=== PATIENT | male | born 1970 | race Caucasian/White ===

== ENCOUNTER → 2025-06-11 14:03 | Outpatient (REF) | payer OTHER, SELFPAY | LOC: HWRCS 14:03 | PROVIDERS: ATTENDING PHYSICIAN Internal Medicine Cardiovascular Disease; FAMILY PHYSICIAN Nurse Practitioner Family | DX: I48.3 Typical atrial flutter (principal); I25.118 Atherosclerotic heart disease of native coronary artery with other forms of angina pectoris | CPT/HCPCS: 93306 ==

== ENCOUNTER 2025-06-17 05:54 | Day surgery (SDC) | payer OTHER, SELFPAY ==
[2025-06-11 12:58] VITALS: BMI 44.9
[2025-06-11 13:43] LABS: Hematocrit 34.7 % (39.0-52.0); Hemoglobin 10.7 g/dL (13.0-18.0); Mean Corp Hgb Conc. 30.8 g/dL (33.0-37.0); Mean Corpuscular Volume 88.1 fL (80.0-94.0); Nucleated Red Blood Cells % 0.4 % (-); Platelet Count 413 10^3/uL (130-400); Red Cell Dist. Width 14.1 % (11.5-14.5)
[2025-06-11 14:02] LABS: ALT (SGPT) 39 U/L (0-50); AST (SGOT) 37 U/L (17-59); Albumin 4.4 g/dl (3.5-5.0); Alkaline Phosphatase 112 U/L (38-126); Blood Urea Nitrogen 25 mg/dl (9-20); Calcium 9.3 mg/dl (8.4-10.2); Carbon Dioxide 34 mmol/L (22-30); Chloride 94 mmol/L (98-107); Estimated Creatinine Clearance 123 ml/min; Glucose 190 mg/dl (70-99); Potassium 5.1 mmol/L (3.5-5.1); Sodium 136 mmol/L (135-145); Total Protein 8.7 g/dl (6.3-8.2); eGFR > 60.00
[2025-06-17] VITALS (17 sets, daily range): BP systolic 97–147; BP diastolic 40–110; PULSE 2; BMI 44.8
[2025-06-17 06:52] LABS: Glucose - Point of Care 225 mg/dl (70-99)
[2025-06-17 08:57] LABS: ACT-LR - POC 176 Seconds (116-155)
[2025-06-17 09:25] LABS: ACT-LR - POC 136 Seconds (116-155)
--- NOTE | 2025-06-17 09:49 | ITS.CL.ABL ---
[employer] - Ablation
Ablation
Procedure Report:
Atrial Flutter ablation:
Mr. Blount is a very pleasant 55 yr old gentleman with CAD, s/p CABG, recent [place] with PCI to vein graft, ischemic cardiomyopathy, hyperlipidemia, morbid obesity, DM, HTN, ARUN (untreated), chronic respiratory failure with oxygen with multiple
recurrence of atrial flutter presented for EP study and ablation.
Date of the Procedure:
06/17/2025
Indications:
Atrial flutter with RVR.
Pre-Operative Diagnosis:
Typical Atrial Flutter
Post-Operative Diagnosis:
Supra-ventricular tachycardia with Typical Atrial Flutter
Procedure Performed:
EP study
Atrial flutter ablation with cavo-tricuspid isthmus line block formation
Performing Physician:
Demarcus Delarosa MD
Assistants:
EP staff
Anesthesia:
See anesthesia records
Detailed Description of the Procedure:
Written informed consent was obtained from the patient after a full explanation of the risks and benefits of the procedure including the risks of sedation and anesthesia.
The patient was brought to the electrophysiology laboratory in stable condition in fasting state. Continuous electrocardiographic and hemodynamic monitoring was initiated.
The initial rhythm was sinus.
The procedure site was meticulously prepared with surgical scrub and allowed to dry with no pooling. Sterile draping was applied to cover the procedure site. The image intensifier was draped with sterile bag and positioned over the patient.
After infusion of local anesthetic, vascular access was obtained under ultrasound guidance and sheaths were placed over guide wire as detailed below.
Sheath and Catheter Placement:
The following catheters / sheaths were placed
Sheaths:
��������� 8Fr in right femoral vein � upgraded to Agilis sheath
��������� 7Fr in the right femoral vein
Catheters:
��������� [employer] L[employer] Thermocool STSF bidirectional� - at locations of HRA, RV, CS and His.
��������� Decapolar catheter - at locations of CS
A 7000 units of heparin was given after the access was complete.
EP study:
A full EP study was done.
����������� OH 294
����������� QRS 90 msec
����������� QT/QTc: 350/411
����������� AA 716
����������� AH 243
����������� HV 51
Sinus Node Function:
Burst pacing was performed from the right atrium at varying cycle lengths to measure the sinus node recovery time (SNRT). The sinus node functions are within acceptable normal range.
Atrioventricular Shannon Function:
Atrial stimulation with incremental pacing intervals was performed from the coronary sinus and right ventricular apex (RVa) and antegrade and retrograde atrioventricular (AV) block cycle lengths were determined. The antegrade AV Wenckebach was noted
at 340 msec.
Programmed atrial stimulation was performed with drive train of 600 msec followed by a single atrial extra-stimulus and the AV shannon and the atrial ERPs were determined. The AV shannon ERP was <600/230 msec and the atrial ERP was 600/230msec.
There was normal decremental conduction noted through the AV node. The programmed stimuli showed no clear jump. There was no echo beat or AVNRT induced.
Ventricular stimulation showed concentric, midline and decremental retrograde conduction through the AV node and retrograde AV shannon ERP was below 600/230 msec and the Ventricular ERP was 600/230 msec.
The AV shannon functions are deemed within normal range with multiple slow pathways noted.
Ventricular Function:
Single ventricular extrastimuli were delivered following drive train of 600 msec, the ventricular ERP was 600/230 msec. The ventricular electrical functions are within acceptable range.
Arrhythmia Induction:
Programmed stimulation including single, and double extrastimuli were delivered from the HRA and the various locations of the CS as well as from the RVa. The burst pacing from the CS locations also attempted.
No arrhythmia was induced with general anesthesia and mechanical ventilation.
With hx of typical atrial flutter, the decision was made to proceed with CTI line of block creation.
Electroanatomic mapping (EAM):
The right atrium was mapped using Carto mapping software using [employer] STSF bidirectional catheter. The anatomy was established and the sinus rhythm conduction was recorded. The bipolar voltage of the entire chamber created that showed no
significant scar in the chamber.
Ablation # 1: Typical Atrial Flutter Ablation:
Radiofrequency ablation was performed using a 3.5mm, open irrigation, force-sensing bidirectional ablation catheter ([employer] STSF) in the cavotricuspid isthmus from the tricuspid annulus to the IVC ridge.
The flutter slowed and terminated into sinus rhythm once the CTI block was achieved.
Post ablation mapping was done:
Following observations were noted.
����������� -Bidirectional block was confirmed across the CTI line with differential pacing.
����������� -Double potentials were spaced greater than 95 msec apart.
����������� -The conduction time across the CTI line from proximal CS pacing was 168 msec.
����������� -EAM of the right atrium was obtained with coronary sinus pacing and showed a line of block at the CTI.
����������� -The time interval just lateral to the ablation lesions was 168 msec and the lateral wall was 118 msec
����������� - All these maneuvers confirmed the block at the CTI line.
- Post ablation HV interval was unchanged at 45 msec
The patient was observed in the EP lab for 15 minutes and the repeat study showed stable block at the CTI location and CTI conduction time was 168 msec.
Procedure End
Following the completion of the EP study, catheters were removed. The sheaths were removed and hemostasis achieved with VASCADE and manual compression.
Anesthesia reversed the sedation and extubated the patient successfully.
Estimated Blood loss:
<5 cc
Specimens Removed:
None.
Implants / Devices:
None
Urine output:
None
Packs / Drains/ Tubes:
None
Instrument / Sponge Count Correct:
Yes
Complications of the Procedure:
None
Condition of Patient at Time of Transfer:
Hemodynamically stable with no neurological or vascular compromise.
Summary:
Successful SVT ablation with typical atrial flutter ablation with cavo-tricuspid isthmus line of block formation.
.
[2025-06-17 10:13] LABS: Glucose - Point of Care 226 mg/dl (70-99)
[2025-06-17] MEDS: NOVOLOG vial 2 UNITS SC (10:54)
[2025-06-17 12:12] LABS: Glucose - Point of Care 219 mg/dl (70-99)
--- NOTE | 2025-06-17 14:20 | CM ---
Chart reviewed. Patient is independent of ADLS, lives with his in a 2 [address], 1st floor set up, 6 REN[address], 0 DME. Plan is for the patient to return home. CM to follow
[2025-06-17] MEDS: NOVOLOG FLEXPEN 5 UNITS SC ×2 (14:22→18:21)
[2025-06-17] MEDS: NOVOLOG FLEXPEN-MODERATE RESISTANCE 3 UNITS SC (14:23)
[2025-06-17] MEDS: BUMEX 2 MG PO (15:57)
[2025-06-17] MEDS: NEURONTIN 600 MG PO ×2 (15:57→22:11)
[2025-06-17 17:13] LABS: Glucose - Point of Care 300 mg/dl (70-99)
[2025-06-17] MEDS: NOVOLOG FLEXPEN-MODERATE RESISTANCE 7 UNITS SC (18:22)
--- NOTE | 2025-06-17 19:30 | PTCARENOTE ---
Pt received from PACU recovery area post ablation. Pt able to sit up on arrival to IVU, oxygen sats eventually weaned to 94% on 3L. Right femoral vein site with dry and intact dressing, no sign of bleeding or hematoma. Telemetry shows sinus rhythm.
[2025-06-17] MEDS: DEPAKENE 250 MG PO (20:26)
[2025-06-17] MEDS: ELIQUIS 5 MG PO (20:26)
[2025-06-17] MEDS: COREG 25 MG PO (20:26)
[2025-06-17] MEDS: PROTONIX 40 MG PO (20:26)
[2025-06-17] MEDS: XANAX 2 MG PO (20:26)
[2025-06-17 21:49] LABS: Glucose - Point of Care 298 mg/dl (70-99)
[2025-06-17] MEDS: LANTUS 0.62 UNITS SC (22:10)
[2025-06-17] MEDS: MINIPRESS 1 MG PO (22:10)
[2025-06-17] MEDS: ELAVIL 50 MG PO (22:11)
[2025-06-17] MEDS: ZETIA 10 MG PO (22:11)
[2025-06-17] MEDS: CRESTOR 40 MG PO (22:11)
[2025-06-18 03:52] VITALS: BP 97/53
[2025-06-18 04:17] LABS: Hematocrit 30.5 % (39.0-52.0); Hemoglobin 9.1 g/dL (13.0-18.0); Mean Corp Hgb Conc. 29.8 g/dL (33.0-37.0); Mean Corpuscular Volume 84.7 fL (80.0-94.0); Platelet Count 272 10^3/uL (130-400); Red Cell Dist. Width 14.6 % (11.5-14.5)
[2025-06-18 04:31] VITALS: BMI 44.8
[2025-06-18 04:55] LABS: Blood Urea Nitrogen 25 mg/dl (9-20); Calcium 8.6 mg/dl (8.4-10.2); Carbon Dioxide 29 mmol/L (22-30); Chloride 97 mmol/L (98-107); Estimated Creatinine Clearance > 125 ml/min; Glucose 255 mg/dl (70-99); Magnesium 1.9 mg/dl (1.6-2.3); Potassium 4.7 mmol/L (3.5-5.1); Sodium 136 mmol/L (135-145); eGFR > 60.00
[2025-06-18 05:18] VITALS: PULSE 2; PULSE 86
--- NOTE | 2025-06-18 06:14 | PTCARENOTE ---
Pt NSR on monitor, VSS. Pt denies pain. Rt groin dsg CDI. Pt tolerated BiPAP overnight. Ambulates with x 1 assist. Call weathers within reach
[2025-06-18 06:53] LABS: Glucose - Point of Care 185 mg/dl (70-99)
[2025-06-18 07:06] VITALS: BP 106/65
[2025-06-18 07:58] LABS: Glucose - Point of Care 256 mg/dl (70-99)
[2025-06-18 08:18] LABS: Glycohemoglobin (HgbA1c) 7.7 % (4.0-5.6)
[2025-06-18 08:41] VITALS: BP 124/64
[2025-06-18] MEDS: NOVOLOG FLEXPEN 5 UNITS SC ×2 (08:42→12:29)
[2025-06-18] MEDS: NOVOLOG FLEXPEN-MODERATE RESISTANCE 5 UNITS SC ×2 (08:42→12:30)
[2025-06-18] MEDS: LANTUS 0.62 UNITS SC (08:43)
[2025-06-18] MEDS: BUMEX 2 MG PO (08:45)
[2025-06-18] MEDS: NEURONTIN 600 MG PO (08:45)
[2025-06-18] MEDS: TRICOR 145 MG PO (08:46)
[2025-06-18] MEDS: FARXIGA 10 MG PO (08:46)
[2025-06-18] MEDS: PLAVIX 75 MG PO (08:46)
[2025-06-18] MEDS: PROTONIX 40 MG PO (08:46)
[2025-06-18] MEDS: ELIQUIS 5 MG PO (08:46)
[2025-06-18] MEDS: PROZAC 60 MG PO (08:47)
[2025-06-18] MEDS: XANAX PO (08:49)
[2025-06-18] MEDS: NORVASC 2.5 MG PO (08:50)
[2025-06-18] MEDS: COREG 25 MG PO (08:50)
[2025-06-18] MEDS: DEPAKENE 250 MG PO (08:52)
--- NOTE | 2025-06-18 08:57 | W.PN.CARDCBS ---
Addendum entered and electronically signed by JEAN CLAUDE Vail 06/18/25 12:05:
Improved Hgb with repeat labs.
Pt expressed desire to go to gym/exercise to help lose weight. He has difficulty walking even short distances. He had not done any cardiac rehab or PT after stenting in February at OSH in [place]. He and agreeable to starting with cardiac
rehab here.
Consulted Cardiac Rehab with first appt scheduled.
Stable for discharge home.
Addendum entered and electronically signed by Bob Marshall MD 06/18/25 10:20:
Patient seen and examined in collaboration with KEY MAKER; agree with below.
- Stable status-post ablation yesterday.
- Recheck hemoglobin today prior to discharge to make sure it is stable.
- Outpatient follow-up with Cardiology.
Original Note:
Today's Communication / Plan
-
Repeat CBC midday- if stable, ok for d/c
continue eliquis/plavix
pulm f/u for ARUN workup
cards f/u in 2 weeks as scheduled
Impression / Plan
-
PCP: Marija Neville NP
CDY: Giovanni Powers MD
55 y/o, PMH sig for CAD, s/p CABG (2017), recent [place] with PCI to vein graft-RCA (02/2025)- both in [place], [place]. Now with multiple recurrence of symptomatic atrial flutter presented for EP study and ablation.
IMPRESSION/PLAN:
AFlutter
s/p EP study with right sided CTI RFA
tele- NST w/PACs, no arrhythmia
[id number]=9, resume eliquis this morning
groin site stable
procedure complicated with desaturation and hypoxia requiring high flow O2 post procedure and BiPAP support overnight
now >92% on RA, no dyspnea, sob
likely has ARUN and will to reschedule outpt sleep study- to follow with Pulm in 1-2 weeks
anemia noted pre procedure with mild Hgb drop today- will repeat CBC (he has been on plavix + eliquis since stenting in February)
followup in 2 weeks at [facility] as scheduled
home today if anemia stable
CAD, prior CABG x3 (2018)
recent VG-RCA PCI (02/2025)
continue uninterrupted clopidogrel
stable
ICM/Chronic systolic HFmrEF, 45-50%
continue GDMT with bumex, carvedilol, jardiance, lisinopril
recent echo 06/11/25 results noted- no prior studies to compare
HLD- check CVE this morning
continue statin
Morbid Obesity- weight loss/lifestyle changes encouraged
started mounjaro per pcp
Progress Note - Medical Secretary
Subjective
Date of Service: June 18, 2025
Denies cp/palps/dyspnea
oob ambulating
groin site without pain
Objective
Labs:
06/18/25 04:08
Labs
Hgb 9.1 g/dL (13.0-18.0) L 06/18/25 04:08
Hct 30.5 % (39.0-52.0) L 06/18/25 04:08
Plt Count 272 10^3/uL (130-400) D 06/18/25 04:08
Sodium 136 mmol/L (135-145) 06/18/25 04:08
Potassium 4.7 mmol/L (3.5-5.1) 06/18/25 04:08
BUN 25 mg/dl (9-20) H 06/18/25 04:08
Creatinine 0.9 mg/dL (0.7-1.3) 06/18/25 04:08
Glucose 255 mg/dl (70-99) H 06/18/25 04:08
Vital Signs and I&O:
Vital Signs
Temp Pulse Resp BP Pulse Ox
98.6 F 86 15 106/65 98
06/18/25 07:00 06/18/25 07:06 06/18/25 07:00 06/18/25 07:06 06/18/25 07:00
Vital Signs
Temp Pulse Resp BP Pulse Ox
98.6 F 86 15 106/65 98
06/18/25 07:00 06/18/25 07:06 06/18/25 07:00 06/18/25 07:06 06/18/25 07:00
Intake & Output
06/16/25 06/17/25 06/18/25 06/19/25
06:59 06:59 06:59 06:59
Intake Total 550 / 550
Balance 550 / 550
Physical Exam
Physical Exam
AAOx3, MAEE 5/5
RRR S1 S2 no murmurs
CTA bilat, non labored
soft abd, + bs
right groin site without ht/bleeding, non tender
bilat extremities w/palpable distal pulses, no edema
--- NOTE | 2025-06-18 10:03 | W.DS.TRANS ---
Addendum entered and electronically signed by Bob Marshall MD 06/18/25 10:20:
Agree with below.
Original Note:
DC Summary - Outside Salesman
-
Discharge Instructions:
Discharge Diagnosis/Procedures Atrial flutter post ablation
Diet Low Cholesterol,Diabetic, Carb Controlled,2 Gram
Sodium
Driving Restrictions No driving for 24 hours
Instructions:
Stand-Alone Forms: DC Instructions- Cath/EP Lab
Changes to Home Medications: No
Discharge Medications:
DC Medications w/original date entered in [employer]
alprazolam 2 mg tablet 2 mg PO BID 06/17/25
amitriptyline 25 mg tablet 50 mg PO HS 06/17/25
amlodipine 2.5 mg tablet 2.5 mg PO DAILY 06/17/25
apixaban 5 mg tablet (Eliquis) 5 mg PO BID 06/17/25
bumetanide 2 mg tablet 2 mg PO BID 06/17/25
carvedilol 25 mg tablet 25 mg PO BID 06/17/25
clopidogrel 75 mg tablet 75 mg PO DAILY 06/17/25
empagliflozin 10 mg tablet (Jardiance) 10 mg PO DAILY 06/17/25
ezetimibe 10 mg tablet 10 mg PO HS 06/17/25
fenofibrate nanocrystallized 145 mg tablet 145 mg PO DAILY 06/17/25
fluoxetine 60 mg tablet 30 mg PO DAILY 06/17/25
gabapentin 600 mg tablet 600 mg PO TID 06/17/25
insulin aspart U-100 100 unit/mL (3 mL) subcutaneous pen (Novolog FlexPen U-100 Insulin aspart) 5 unit SC TIDWMEAL 06/17/25
insulin glargine U-300 conc 300 unit/mL (1.5 mL) subcutaneous pen (Toujeo SoloStar U-300 Insulin) 78 unit SC BID 06/17/25
lisinopril 20 mg tablet 20 mg PO DAILY 06/17/25
omeprazole 20 mg capsule,delayed release 20 mg PO BID 06/17/25
prazosin 1 mg capsule 1 mg PO HS 06/17/25
rosuvastatin 40 mg tablet 40 mg PO HS 06/17/25
tirzepatide 2.5 mg/0.5 mL subcutaneous pen injector (Halima) 2.5 mg SC QWEEK 06/17/25
valproic acid 250 mg capsule 250 mg PO BID 06/17/25
Home Medication Changes
Pending Results: No
[2025-06-18 10:36] LABS: HDL Cholesterol 21 mg/dl
[2025-06-18 11:14] LABS: Hematocrit 32.4 % (39.0-52.0); Hemoglobin 9.7 g/dL (13.0-18.0); Mean Corp Hgb Conc. 29.9 g/dL (33.0-37.0); Mean Corpuscular Volume 85.7 fL (80.0-94.0); Platelet Count 293 10^3/uL (130-400); Red Cell Dist. Width 14.8 % (11.5-14.5)
[2025-06-18 11:24] LABS: Glucose - Point of Care 262 mg/dl (70-99)
[2025-06-18 11:25] VITALS: BP 130/71
--- NOTE | 2025-06-18 13:23 | PTCARENOTE ---
Pt denies any discomfort. Pt seen by and Doretha Bishop, JARVIS. Telemetry and IV device removed. Discharge instructions reviewed with pt and his regarding medications, activity and driving restrictions, wound care, reporting cares and
concerns and follow up appt's. Excellent understanding verbalized. Pt escorted out via wheelchair and discharged to home.
[2025-06-18 16:05] LABS: LDL Cholesterol, Direct 66 mg/dl
== END 2025-06-18 13:27 | disposition home or self-care (01) ==
LOC: CATH 05:54
PROVIDERS: Nurse Practitioner; Nurse Practitioner Adult Health; ATTENDING PHYSICIAN Internal Medicine Cardiovascular Disease; FAMILY PHYSICIAN Nurse Practitioner Family; OTHER PHYSICIAN Internal Medicine Cardiovascular Disease
DX: I48.3 Typical atrial flutter (principal); J96.10 Chronic respiratory failure, unspecified whether with hypoxia or hypercapnia; I25.10 Atherosclerotic heart disease of native coronary artery without angina pectoris; Z95.1 Presence of aortocoronary bypass graft; I25.5 Ischemic cardiomyopathy; E78.5 Hyperlipidemia, unspecified; E66.01 Morbid (severe) obesity due to excess calories; E11.9 Type 2 diabetes mellitus without complications; Z79.4 Long term (current) use of insulin; I11.0 Hypertensive heart disease with heart failure; G47.30 Sleep apnea, unspecified; I47.20 Ventricular tachycardia, unspecified; I47.10 Supraventricular tachycardia, unspecified; D64.9 Anemia, unspecified; I50.22 Chronic systolic (congestive) heart failure; Z79.02 Long term (current) use of antithrombotics/antiplatelets; R09.02 Hypoxemia; Z99.81 Dependence on supplemental oxygen; Z95.5 Presence of coronary angioplasty implant and graft; Z88.5 Allergy status to narcotic agent; Z79.899 Other long term (current) drug therapy; Z79.85 Long-term (current) use of injectable non-insulin antidiabetic drugs; Z79.01 Long term (current) use of anticoagulants
CPT/HCPCS: C1730; C1894; C1732; C1766; 36415; 80048; 80053; 80061; 82962; 83036; 83721; 83735; 85025; 85027; 85347; 86850; 86900; 86901; 93005; 93653; 94660; C1760

== ENCOUNTER 2025-07-18 06:54 | Inpatient (IN) | payer OTHER, SELFPAY ==
[2025-07-18] VITALS (36 sets, daily range): BP systolic 84–155; BP diastolic 40–104; BMI 45.5; BMI 45.2
[2025-07-18 01:49] LABS: Hematocrit 35.0 % (39.0-52.0); Hemoglobin 10.1 g/dL (13.0-18.0); Mean Corp Hgb Conc. 28.9 g/dL (33.0-37.0); Mean Corpuscular Volume 82.4 fL (80.0-94.0); Nucleated Red Blood Cells % 0.4 % (-); Platelet Count 312 10^3/uL (130-400); Red Cell Dist. Width 17.1 % (11.5-14.5)
[2025-07-18 01:59] LABS: ALT (SGPT) 43 U/L (0-50); AST (SGOT) 38 U/L (17-59); Albumin 4.0 g/dl (3.5-5.0); Alkaline Phosphatase 119 U/L (38-126); Blood Urea Nitrogen 28 mg/dl (9-20); Calcium 9.0 mg/dl (8.4-10.2); Carbon Dioxide 34 mmol/L (22-30); Chloride 97 mmol/L (98-107); Glucose 217 mg/dl (70-99); Potassium 4.8 mmol/L (3.5-5.1); Sodium 137 mmol/L (135-145); Total Protein 7.9 g/dl (6.3-8.2); eGFR > 60.00
[2025-07-18 02:08] LABS: Troponin I 0.019 ng/ml
--- NOTE | 2025-07-18 03:21 | ED.GENMED ---
History of Present Illness
General
Chief Complaint: Heart Rate Problem
Source: patient and spouse
Time Seen by Provider: 07/18/25 03:08
History of Present Illness
History of Present Illness:
Note:
CHIEF COMPLAINT(S)
Chest pain and insomnia.
HISTORY OF PRESENT ILLNESS
The patient is a 55-year-old male who presented with chest pain and difficulty sleeping, which had been increasing in severity throughout the day. He reported experiencing pain while attempting to sleep, which became progressively worse, prompting
him to wake up his spouse. The patients recent medical history includes undergoing a cardiac ablation approximately three weeks ago, performed by his campus ambassador, Dr. García. He was advised to seek emergency care if his heart rate exceeded 135 beats
per minute. Upon arrival at the emergency department, the patient reported that the chest pain had resolved, but he continued to experience an elevated heart rate and shortness of breath. He is currently taking anticoagulant medication, confirmed as
being either apixaban (Eliquis) or rivaroxaban (Xarelto), without missing any doses.
Social context revealed the patient resides in close proximity to the hospital and has a follow-up scheduled with Dr. Powers the following day.
EXTERNAL RECORDS REVIEWED
Previous ER records indicated that the patient had undergone a cardiac ablation three weeks prior.
CHRONIC MEDICAL CONDITIONS SIGNIFICANTLY AFFECTING CARE
The patient has been noted to have a history involving the need for a cardiac ablation, suggesting ongoing cardiovascular issues.
MEDICATIONS
The patient is on anticoagulant therapy, specifically taking apixaban (Eliquis) or rivaroxaban (Xarelto).
REVIEW OF SYSTEMS
- Cardiovascular: Reports chest pain that has since resolved, elevated heart rate, and shortness of breath.
- Respiratory: Experienced shortness of breath.
- Sleep: Trouble sleeping due to worsening pain.
PHYSICAL EXAM
General: Alert, no acute distress.
Skin: Warm, dry.
Head: Normocephalic, atraumatic.
Neck: Supple, trachea midline.
Eye, Ears, Nose, Mouth, and Throat: Oral mucosa moist.
Cardiovascular: Normal peripheral perfusion, No edema.
Respiratory: Respirations are non-labored.
Gastrointestinal: Abdomen nondistended.
Back: Normal range of motion, Normal alignment.
Musculoskeletal: Normal range of motion, normal strength.
Neurological: Alert and oriented to person, place, time, and situation, No focal neurological deficit observed.
Psychiatric: Cooperative, appropriate mood & affect.
PLAN
1. Repeat cardiac enzyme test to rule out heart damage.
2. Conduct a blood test to determine if a chest CT scan is necessary to rule out blood clots.
3. Administer intravenous fluids.
DIFFERENTIAL DIAGNOSIS
The Differential Diagnosis includes, in no particular order and is not limited to:
1. Recurrent atrial fibrillation post-ablation.
2. Myocardial ischemia.
3. Panic attack.
4. Pulmonary embolism.
5. Pericarditis.
6. Heart failure.
7. Gastroesophageal reflux disease (GERD).
8. Costochondritis.
9. Pneumothorax.
10. Cardiac tamponade.
Disposition:
SUMMARY OF ENCOUNTER
The patient, a 55-year-old male, presented to the emergency department with complaints of substernal chest pain and palpitations. The chest pain had persisted throughout the previous day and awoke him from sleep. Upon assessment, the patient
appeared to be in atrial fibrillation with rapid ventricular response. He follows up with Dr. Powers regularly. In the emergency department, the patient�s troponin levels were elevated. The EKG showed sinus rhythm with marked sinus arrhythmia, a
heart rate of 98, with normal intervals and normal axis. 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 Nitroglycerin was considered but deferred due to
low blood pressure. Intravenous fluids were administered to manage blood pressure, after which the consideration of nitroglycerin would be reassessed.
DISPOSITION
The patient was admitted to the hospital service.
ASSESSMENT
The patient presents with chest pain likely related to atrial fibrillation with rapid ventricular response. Elevated troponin suggests possible myocardial ischemia, and the EKG indicates sinus rhythm with marked sinus arrhythmia.
EMERGENCY TREATMENTS ADMINISTERED
The patient received morphine for chest pain management and intravenous fluids to support blood pressure.
PLAN
1. Admit to hospital for further evaluation and monitoring.
2. Continue cardiac monitoring and repeat troponin levels to assess cardiac function.
3. Re-evaluate the need for nitroglycerin once blood pressure stabilizes.
4. Follow up with the patient�s outpatient campus ambassador, Dr. Powers, post-discharge for continued management of atrial fibrillation and assess the need for any medication adjustments.
INDEPENDENT REVIEW OF LABS AND INTERPRETATION OF TESTS
My independent review of the EKG indicates sinus rhythm with marked sinus arrhythmia and a heart rate of 98, with normal intervals and axis. No overt ischemic changes were present. My independent review of the patients troponin level showed it was
elevated.
MEDICAL DECISION MAKING
-Complexity of Data Reviewed: Chronic conditions affecting care include the patients history of cardiac ablation and atrial fibrillation. The Differential Diagnosis includes recurrent atrial fibrillation post-ablation, myocardial ischemia, panic
attack, pulmonary embolism, pericarditis, heart failure, gastroesophageal reflux disease (GERD), costochondritis, pneumothorax, and cardiac tamponade.
-Data:
Category 1
Non-emergency department records reviewed: Previous ER records indicated the patient had undergone a cardiac ablation three weeks prior.
Category 2
My independent interpretation of the EKG shows sinus rhythm with marked sinus arrhythmia, a heart rate of 98, with normal intervals and axis.
Category 3
Discussion of management with the hospital service for patient admission and further management of the elevated heart rate and potential myocardial ischemia.
-Risk:
Prescription medication management due to the patient being on apixaban or rivaroxaban and receiving morphine in the emergency department.
Consideration of Admission/Observation: Escalation of care including admission/observation was considered given the complexity and risk of the patients presenting complaint, exam findings, and/or their underlying comorbidities. However, ultimately I
feel the patient is safe for outpatient management with close follow-up. Reasoning: Work-up reassuring, does not reveal any acute life/organ-threatening processes, patients symptoms well controlled upon reevaluation, reexamination is reassuring,
vitals are stable, patient agreeable with discharge, reliable for follow-up.
DIAGNOSIS
1. Atrial fibrillation with rapid ventricular response (ICD-10: I48.0)
2. Suspected myocardial ischemia (ICD-10: I25.9)
Phy Exam
Physical Exam
Physical Exam:
.
Course
Orders/Labs/Results
Orders:
Orders
07/18/25 01:12
Electrocardiogram (*1) Urgent
Reason for Study: Other
Other Reason for Exam: Respiratory Distress
Cardiac Monitoring- Treatment ONCE
EKG- Treatment ONCE
IV Insert/Care/Rem.- Treatment PRN
CR Chest - 2 Views Urgent
Comment:
Reason For Exam: respiratory distress
O2 Therapy [RESP] Urgent
Titrate/Wean O2 to maintain O2 sat greater than (%): 93
Special Instructions: TO MAINTAIN CONTINUOUS O2 SATS >/= 93%
Pulse Ox/cont/shift [RESP] Urgent
Quantity: 1
Special Instructions: continuous pulse ox
07/18/25 01:37
Complete Blood Count/With Diff Urgent
Comprehensive Metabolic Panel Urgent
NT-proBNP Urgent
Troponin I Urgent
07/18/25 03:20
Electrocardiogram (*1) Urgent
Reason for Study: Palpitations
EKG- Treatment ONCE
0.9% Sodium Chloride 1000 ml [Nss] 1,000 ml IV BOLUS
07/18/25 03:27
D-Dimer Urgent
Troponin I Urgent
07/18/25 04:48
Morphine Sulfate 4 mg IV NOW STA
07/18/25 05:25
Nitroglycerin Ointment [Nitro-Bid] 1 inch .ROUTE .STK-MED ONE
07/18/25 05:26
Nitroglycerin Ointment [Nitro-Bid] 1 inch TOPICAL NOW STA
07/18/25 06:22
HYDROmorphone [Dilaudid] 1 mg .ROUTE .STK-MED ONE
07/18/25 06:23
HYDROmorphone [Dilaudid] 1 mg IV NOW STA
07/18/25 06:43
Notify MD As Directed
Notify physician if: Call provider for further orders if PTT is greater than or equal to 200 per heparin
infusion protocol.
Nursing to Place Non Medication Order As Directed
Physician Order: PTT 6 hours after initial start of Heparin infusion
Above order entered?: Yes
07/18/25 06:44
Admit/Transfer Patient As Directed
Co-Sign Provider:
Level of Care: Inpatient admission
Assign to:: IVU
Physician / Group: Girish
Diagnosis: NSTEMI / ACS
Reason for Hospitalization: NSTEMI / ACS
Expected length of stay greater than two midnights?: Yes
ELOS- Estimated Length of Stay in days: 3
I certify the patient meets the requirements for IP care: Yes
PRN Pain Medication Management As Directed
May give lesser potent ordered pain med per pt: Yes
preference::
Protocol:: Medication orders for pain may be administered in a
manner that supports deferring to patient preference
when the pt is:
- Requesting an ordered lesser potent pain medication.
Least to most potent pain medications are defined
as: acetaminophen < NSAID < tramadol < opioids
(morphine, oxycodone, hydromorphone).
- Requesting a lesser dose of the same medication IF
ORDERED.
- Requesting a less intrusive route of administration
if both routes are prescribed by the provider (PO <
IV).
07/18/25 06:45
Heparin 69229 Units/250 ml 25,000 units in 250 ml IV PER PROTOCOL
Weight to be used for heparin protocol in kilograms (kg):: 152.1
Protocol:: Cardiac Tx/Acute Coronary
PTT Goal Range to be used:: PTT 73 to 111 seconds
Order type:: Initial
INITIAL Infusion Dose (UNITS/KG/hr) & then follow protocol:: 12 units/kg/hr
Infusion Dose in UNITS/hr & then follow protocol (UNITS/hr):: 1,000
INFUSION RATE in mL/hr & then follow protocol (mL/hr):: 10
PTT less than or equal to 64 seconds:: Increase rate by 200 units/hr (+ 2 mL/hr)
PTT 64.1 to 72.9 seconds:: Increase rate by 100 units/hr (+ 1 mL/hr)
PTT 73 to 111 seconds:: Target Range. No change in rate.
PTT 111.1 to 130.9 seconds:: Decrease rate by 100 units/hr (- 1 mL/hr)
PTT 131 to 199.9 seconds:: HOLD for 1 hr. Then decrease rate by 200 units/hr (- 2 mL/hr)
PTT greater than or equal to 200 seconds:: HOLD for 2 hrs & Notify Provider. Then decrease by 200 units/hr (-
2 mL/hr)
Lab follow-up:: Each change, PTT q6h until 2 consecutive are therapeutic. Then PTT
daily.
07/18/25 06:46
Code Status As Directed
Resuscitation Status: Full Code
07/18/25 07:48
PTT Urgent
Comment: Obtain baseline before beginning heparin infusion if not already collected
07/18/25 08:01
Amlodipine [Norvasc] 2.5 mg PO DAILY
Aspirin Chewable [Low Strength Aspirin] 81 mg PO DAILY
Carvedilol [Coreg] 25 mg PO BID
Dapagliflozin [Farxiga] 10 mg PO DAILY
Dextrose 50%-Water [Dextrose 50% Syringe] 12.5 grams IV [id number] PRN
Fluoxetine HCl [Prozac] 60 mg PO DAILY
Gabapentin [Neurontin] 600 mg PO TID
Glucagon [GlucaGen] 1 mg IM PRN PRN
HYDROmorphone [Dilaudid] 0.5 mg IV Q4HPRN PRN
Insulin Aspart High Resistance [Novolog Flexpen-High Resistance] See Protocol SC AC
Lisinopril [Zestril] 20 mg PO DAILY
Nitroglycerin 100 mg/250 ml [Nitroglycerin Premix] 100 mg in 250 ml IV PER PROTOCOL
Initial dose in mcg/min, then titrate:: 5
Titrate to keep:: Chest Pain Free
Titrate by mcg/min:: 5 mcg/min, may increase by 10 mcg/min if dose > 20 mcg/min
Frequency of titrations (minutes):: every 3-5 minutes
Maximum dose in mcg/min:: 200
Begin to taper infusion when:: Remained at goal for 2hrs
Taper by mcg/min:: 5 mcg/min
Frequency of taper (minutes) if patient maintains goal:: 30
Taper to off?: Yes
If infusion off & no longer maintaining goal:: Contact Provider
Nitroglycerin Sublingual [Nitrostat (Sublingual)] 0.4 mg SL [id number] PRN
Pantoprazole [Protonix] 40 mg PO BID
Valproic Acid [Depakene] 500 mg PO BID
insulin glargine U-300 conc [Toujeo SoloStar U-300 Insulin] 30 unit SC BID
07/18/25 08:01
Bedside Glucose Monitoring As Directed
Frequency: AC&HS
Additional Instructions:: Change to q6h if pt on TPN, tube feeding or not eating
Notify MD As Directed
Notify physician if: PTT is greater than or equal to 200.
07/18/25 08:30
Troponin I Q6H
07/18/25 11:53
Acetaminophen [Tylenol] 650 mg PO Q4HPRN PRN
07/18/25 11:53
CARDIOLOGY CONSULT Routine
Consulting Provider: Jere Howell
Was physician already notified: No
Reason for consult: ACS / NSTEMI
Consult Notification Routine
Specialty to Notify: Cardiology
Date consulting provider notified: 07/18/25
Time consulting provider notified: 11:58
Notified:: Provider
Heparin Protocol- PTT Orders As Directed
PTT per Heparin protocol: -Obtain CBC and baseline PTT - if not already collected.
-Obtain PTT 6 hours from start of infusion. Then, every 6 hours until 2 consecutive
PTT's are therapeutic. Then, PTT Daily.
-With each rate change, obtain PTT every 6 hours until 2 consecutive PTT's are
therapeutic. Then, PTT Daily.
Activity As Directed
Activity Level: Bedrest
Bladder Scan As Directed
Follow Bladder Retention/Intermittent Cath Algorithm?: Yes
PRN if no void in __ hours: 6
Frequency: Per Retention Algorithm
If Bladder Scan Result >: 400
then:: Straight cath
EKG with chest pain [ECG as needed] As Directed
ECG as needed for:: Chest Pain
I/O [Intake/ Output] As Directed
Frequency: Per unit guidelines
Straight Cath As Directed
Frequency: Per Retention Algorithm
Additional Instructions: straight cath as needed per acute urinary retention algorithm for 24 hrs
Additional Instructions: for bladder scan greater than 400 mL
Vital Signs As Directed
Frequency: Per unit guidelines
Weight As Directed
Frequency: Daily
Oxygen Therapy [O2 Therapy] [RESP] Routine
Titrate/Wean O2 to maintain O2 sat greater than (%): 94
07/18/25 11:59
Alprazolam [Xanax] 2 mg PO BID PRN
07/18/25 13:33
Troponin I Q6H
07/18/25 22:00
Amitriptyline [Elavil] 25 mg PO HS
Prazosin HCl [Minipress] 1 mg PO HS
Rosuvastatin Calcium [Crestor] 40 mg PO HS
07/19/25 06:00
EKG [Electrocardiogram (*1)] IN AM
Reason for Study: Chest Pain
Cardiovascular Evaluation IN AM
Glycohemoglobin (HgbA1c) IN AM
07/20/25 06:00
Complete Blood Count/No Diff Q2D
Comment: notify provider: Platelet count < 130,000 or decrease by 50% from baseline
07/22/25 06:00
Complete Blood Count/No Diff Q2D
Comment: notify provider: Platelet count < 130,000 or decrease by 50% from baseline
07/24/25 06:00
Complete Blood Count/No Diff Q2D
Comment: notify provider: Platelet count < 130,000 or decrease by 50% from baseline
07/26/25 06:00
Complete Blood Count/No Diff Q2D
Comment: notify provider: Platelet count < 130,000 or decrease by 50% from baseline
07/28/25 06:00
Complete Blood Count/No Diff Q2D
Comment: notify provider: Platelet count < 130,000 or decrease by 50% from baseline
07/30/25 06:00
Complete Blood Count/No Diff Q2D
Comment: notify provider: Platelet count < 130,000 or decrease by 50% from baseline
08/01/25 06:00
Complete Blood Count/No Diff Q2D
Comment: notify provider: Platelet count < 130,000 or decrease by 50% from baseline
08/03/25 06:00
Complete Blood Count/No Diff Q2D
Comment: notify provider: Platelet count < 130,000 or decrease by 50% from baseline
Abnormal Lab Results
07/18/25 07/18/25
01:37 03:27
RBC 4.25 L 10^6/uL
(4.70-6.10)
Hgb 10.1 L g/dL
(13.0-18.0)
Hct 35.0 L %
(39.0-52.0)
MCH 23.8 L pg
(27.0-31.0)
MCHC 28.9 L g/dL
(33.0-37.0)
RDW 17.1 H %
(11.5-14.5)
Abs Immat Gran (auto) 0.3 H 10^3/uL
(0-0.05)
Absolute Monos (auto) 0.7 H 10^3/uL
(0.1-0.6)
Immature Gran % 3.4 H %
(0-0.5)
Chloride 97 L mmol/L
(98-107)
Carbon Dioxide 34 H mmol/L
(22-30)
BUN 28 H mg/dl
(9-20)
Glucose 217 H mg/dl
(70-99)
Troponin I 0.069 H* D ng/ml
07/18/25 01:37
07/18/25 01:37
Vital Signs
Initial and Last Documented VS:
Initial Vital Signs
Pulse Resp BP Pulse Ox
175 20 144/88 98
07/18/25 01:09 07/18/25 01:09 07/18/25 01:09 07/18/25 01:09
Last Documented Vital Signs
Temp Pulse Resp BP Pulse Ox
98 F 89 18 119/76 94
07/18/25 22:23 07/18/25 22:25 07/18/25 22:23 07/18/25 22:47 07/18/25 22:25
*Pulse Oximetry
SaO2: 96
Nasal Cannula flow liters per minute: 5
Oxygen Mode of Delivery: Room air
Patient hypoxic: no
*Critical Care Note
Total Time (30-74mins, 75-104mins- exclusive of procedures): Not Applicable
ED Attending Note
-
Portions of this chart may have been created with voice recognition software.� Occasional wrong word or��sound alike� substitutions may have occurred due to the inherent limitations of voice recognition software.
Discharge Plan
Departure
Patient Disposition: Admit
Date of Disposition: 07/18/25
Time of Disposition: 04:50
Presentation/result/management discussed w/ accepting MD/DO: Hospitalist
Condition: Fair
Discharge Problem:
Chest pain
Interventions
Interventions:
*Risk Screen - Suicide Last Done: 07/18/25 01:13
*General Assessment Last Done: 07/18/25 01:13
*Neglect/Abuse Screening Last Done: 07/18/25 01:49
*ED- Fall Risk Assessment Last Done: 07/18/25 01:49
*ED COVID-19 Vaccine History Last Done: 07/18/25 11:39
*ED Influenza Vaccine History Last Done: 07/18/25 01:49
*Nursing Disposition Last Done: 07/18/25 11:10
ED- Cardiac Assessment Last Done: 07/18/25 07:45
ED- Pulmonary Assessment Last Done: 07/18/25 07:45
Discharge Date and Time
Discharge Date/Time: 07/18/25 11:10
[2025-07-18] MEDS: NSS 1000 IV (03:28)
[2025-07-18 04:26] LABS: Troponin I 0.069 ng/ml
[2025-07-18 04:27] LABS: D-Dimer 0.34 ug/mlFEU (0.00-0.50)
[2025-07-18] MEDS: MORPHINE SULFATE 4 MG IV (05:01)
[2025-07-18] MEDS: NITRO-BID 1 INCH TOPICAL (05:26)
--- NOTE | 2025-07-18 05:36 | EDRN ---
after 4mg morphine administration, pt described no relief of chest pain, pt c/o increased chest pain from 5/10 to 6/10. Dr Palacios notified, received verbal order for nitro paste - refer to NOV. pt's BP 114/60. Spouse at bedside, pt sitting on
side of bed. awaiting admission orders, call weathers within reach
--- NOTE | 2025-07-18 06:22 | EDRN ---
pt continues to c/o chest pain with no relief. Dr Palacios notified. Received verbal order for 1 mg Dilaudid IV now.
[2025-07-18] MEDS: DILAUDID 1 MG IV (06:24)
--- NOTE | 2025-07-18 06:49 | HPS.HSE ---
Family Physician
-
Family Physician: JEAN CLAUDE Carrion
Chief Complaint
-
Chest Pain
History of Present Illness
Patient is a 55y M with PMH significant for ASCVD, atrial flutter and morbid obesity who presents to ED complaining of chest pain. Patient states that he had chest discomfort throughout the day on Saturday. He describes the sensation as 'rocks
in my chest' or heaviness. Patient states that his current symptoms are identical to those that he had in February of this year when he had PTCA with 4 stents placed (outside hospital). He notes associated shortness of breath and diaphoresis. He
states that his pain at home was up to 10/10 in severity. This evening when his pain reached it's peak, he presented to the ED for further evaluation.
In the ED, patient is having continued intermittent pain - temporarily relieved with Dilaudid, NTG, etc.
He has developed a mild headache since NTG.
Medical History
Past Medical History
Past Medical History: Reports Other
Additional Past Medical History:
ASCVD
Hypertension
Atrial Flutter
HFmrEF
DM-II
Chronic Anemia
Morbid Obesity
ARUN not currently on PAP therapy
Chronic Hypoxemic Respiratory Failure
Past Surgical History: Reports Other
Additional Past Surgical History:
CABG x 3
PTCA with Stents (x 4) - February 2025
RFA Ablation (06/17/2025)
Social History
Tobacco: Former Smoker (Quit smoking in September)
Alcohol: Occasional
Personal:
Living: With Family
Family History
Family History: Other (Strong family history of CAD, DM.)
Allergies / Home Medications
Allergies reflects when Allergies were last updated in [facility].
Home Medications with original date entered in [facility]
Allergy/Medication List:
Allergies
Allergy/AdvReac Type Severity Reaction Status Date / Time
morphine AdvReac Unknown causes Verified 10/19/25 01:14
'PTSD'
Home Medications
alprazolam 2 mg tablet 2 mg PO BID PRN anxiety 06/17/25
amitriptyline 25 mg tablet 25 mg PO HS 06/17/25
amlodipine 2.5 mg tablet 2.5 mg PO DAILY 06/17/25
apixaban 5 mg tablet (Eliquis) 5 mg PO BID 06/17/25
bumetanide 2 mg tablet 2 mg PO BID 06/17/25
carvedilol 25 mg tablet 25 mg PO BID 06/17/25
clopidogrel 75 mg tablet 75 mg PO DAILY 06/17/25
empagliflozin 10 mg tablet (Jardiance) 10 mg PO DAILY 06/17/25
ezetimibe 10 mg tablet 10 mg PO HS 06/17/25
fenofibrate nanocrystallized 145 mg tablet 145 mg PO DAILY 06/17/25
gabapentin 600 mg tablet 600 mg PO TID 06/17/25
insulin aspart U-100 100 unit/mL (3 mL) subcutaneous pen (Novolog FlexPen U-100 Insulin aspart) 40 unit SC TIDWMEAL 06/17/25
insulin glargine U-300 conc 300 unit/mL (1.5 mL) subcutaneous pen (Toujeo SoloStar U-300 Insulin) 78 unit SC BID 06/17/25
lisinopril 20 mg tablet 20 mg PO DAILY 06/17/25
omeprazole 20 mg capsule,delayed release 20 mg PO BID 06/17/25
prazosin 1 mg capsule 1 mg PO HS 06/17/25
rosuvastatin 40 mg tablet 40 mg PO HS 06/17/25
tirzepatide 2.5 mg/0.5 mL subcutaneous pen injector (Mounjaro) 2.5 mg SC QWEEK 06/17/25
valproic acid 250 mg capsule 500 mg PO BID 06/17/25
fluoxetine 60 mg tablet 60 mg PO DAILY 06/18/25
insulin aspart U-100 100 unit/mL subcutaneous cartridge 1 sliding scale dose SC DIRECTED 07/18/25
Review of Systems
-
History Source: Patient
A 12 point ROS was completed and negative except as noted: Yes
Constitutional: Reports Fatigue; Denies Fever or Chills
Respiratory: Reports Trouble Breathing; Denies Cough or Hemoptysis
Cardiac: Reports Chest Pain, Diaphoresis and Palpitations; Denies Syncope
Abdomen/GI: Denies Abdominal Pain, Nausea or Vomiting
: Denies Dysuria or Flank Pain
Musculoskeletal: Reports Edema; Denies Joint Pain
Neurological: Reports Dizzy and Headache
Psych: Denies Depression or Anxiety
Physical Exam
Vital Signs
Vital Signs
Temp Pulse Resp BP Pulse Ox
98.8 F 98 18 132/95 95
07/18/25 02:17 07/18/25 06:15 07/18/25 06:15 07/18/25 06:00 07/18/25 06:15
Physical Exam
General: Other (55y M in mild distress due to chest pain.)
HEENT: Other (Thick neck.)
Respiratory: Clear; No Wheezes, Rales or Rhonchi
Cardiac: S1/S2 and Regular Rhythm; No Murmur
GI: Soft, Non Tender, Non Distended, Normal Bowel Sounds and Other (Obese.)
Musculoskeletal: No Clubbing, No Cyanosis and Other (Trace pedal edema.)
Neuro: AO x 3
Laboratory Results
-
07/18/25 01:37
07/18/25 01:37
Laboratory Results
Total Bilirubin 0.6 mg/dl (0.2-1.3) 07/18/25 01:37
AST 38 U/L (17-59) 07/18/25 01:37
ALT 43 U/L (0-50) 07/18/25 01:37
Alkaline Phosphatase 119 U/L (38-126) 07/18/25 01:37
Troponin I 0.069 ng/ml H* D 07/18/25 03:27
Impression/Plan
-
A/P: Patient is a 55y M with PMH significant for ASCVD, hypertension and DM-II who presents to ED complaining of chest pain.
NSTEMI / ACS
ASCVD
- Admit to IVU for further evaluation and treatment.
- Patient presents with chest pain which is identical to prior presentation for NSTEMI / ACS.
- Begin IV heparin with no bolus (on Eliquis - last taken this evening).
- Continue efforts at pain control - having intermittent pain in the ED.
- NTG gtt and titrate as needed. Morphine / Dilaudid PRN.
- ASA daily. Continue statin.
- Follow troponin to peak.
- Cardiology eval for further recommendations / probable ischemic evaluation.
Atrial Flutter
- Patient briefly in rapid SVT on monitor in ED - has maintained NSR since that time.
- ? recurrent A-Flutter s/p RFA ablation last month.
- Monitor on telemetry.
- Cardiology eval as noted above.
Chronic HFmrEF
- Stable Mild pedal edema in the past 24 hours per patient.
- Continue usual dose of bumetanide for now.
- IV dose PRN for signs / symptoms of volume overload.
Benign Hypertension
- Continue med regimen and adjust as needed for adequate control.
DM-II
- On very high dose insulin regimen.
- Continue basal insulin at decreased dose for now / while NPO.
- Follow glucose and cover with SSI as needed.
- Update A1C.
Anemia of Chronic Disease
- Hgb is at / near previously noted baseline.
- ? etiology of anemia.
- Check iron studies, B12, etc.
Chronic Hypoxemic Respiratory Failure
ARUN not on CPAP
- Secondary to morbid obesity / OHV +/- COPD.
- Continue usual supplemental O2.
- Patient needs to complete PSG / CPAP set up process as an outpatient.
Morbid Obesity due to excess calories
- Affects all aspects of care.
- Encourage efforts at weight loss including health diet, increased exercise, etc.
DVT Prophylaxis: On IV Heparin
Code Status: Full
[2025-07-18] MEDS: HEPARIN 25000 UNITS/250 ML IV (07:52)
[2025-07-18 08:14] LABS: APTT 30.7 Sec (23.4-35.0)
[2025-07-18] MEDS: NITROGLYCERIN PREMIX 250 IV (08:27)
--- NOTE | 2025-07-18 08:34 | W.PN.HOSP.TC ---
Today's Communication/Plan
-
transfer to IVU when bed is available.
Assessment / Plan
Assessment / Plan
A/P: Patient is a 55y M with PMH significant for ASCVD, hypertension and DM-II who presents to ED complaining of chest pain.
1. NSTEMI / ACS
ASCVD
- Current chest pain is identical to prior presentation for NSTEMI / ACS.
- Contiue IV heparin
- Continue efforts at pain control - having intermittent pain in the ED.
- NTG gtt and titrate as needed. Morphine / Dilaudid PRN.
- ASA daily. Continue statin.
- Follow troponin to peak.
- Cardiology eval for further recommendations / probable ischemic evaluation.
2. Atrial Flutter
- Patient briefly in rapid SVT on monitor in ED - has maintained NSR since that time.
- ? recurrent A-Flutter s/p RFA ablation last month.
- Monitor on telemetry.
- Cardiology eval as noted above.
3. Chronic HFmrEF
- Stable Mild pedal edema in the past 24 hours per patient.
- Continue usual dose of bumetanide for now.
- IV dose PRN for signs / symptoms of volume overload.
4. Benign Hypertension
- Continue med regimen and adjust as needed for adequate control.
5. DM-II
- On very high dose insulin regimen.
- Continue basal insulin at decreased dose for now / while NPO.
- Follow glucose and cover with SSI as needed.
- Update A1C.
6. Anemia of Chronic Disease
- Hgb is at / near previously noted baseline.
- ? etiology of anemia.
- Check iron studies, B12, etc.
7. Chronic Hypoxemic Respiratory Failure
ARUN not on CPAP
- Secondary to morbid obesity / OHV +/- COPD.
- Continue usual supplemental O2.
- Patient needs to complete PSG / CPAP set up process as an outpatient.
8. Morbid Obesity due to excess calories
- Affects all aspects of care.
- Encourage efforts at weight loss including health diet, increased exercise, etc.
DVT Prophylaxis: On IV Heparin
Code Status: Full
Anticipated Discharge: > 48 hours
Subjective/Interval History
-
Date of Service: July 18, 2025
Still having episodic chest pressure.
Objective Data
-
Labs:
Laboratory Results
07/18/25 07/18/25
01:37 07:48
WBC 8.3
Hgb 10.1 L
Hct 35.0 L
Plt Count 312
APTT 30.7
Sodium 137
Potassium 4.8
Chloride 97 L
Carbon Dioxide 34 H
BUN 28 H
Creatinine 0.9
Glucose 217 H
Calcium 9.0
Total Bilirubin 0.6
AST 38
ALT 43
Alkaline Phosphatase 119
Vital Signs:
Vital Signs
Temp Pulse Resp BP Pulse Ox
98.8 F 98 18 132/95 95
07/18/25 02:17 07/18/25 06:15 07/18/25 06:15 07/18/25 06:00 07/18/25 06:15
Review of Systems
-
History Source: Patient
All other systems: Reviewed and negative
Physical Exam
-
General: Well Developed, Well Nourished, No Apparent Distress, Conversant and Morbidly Obese
HEENT: Normocephalic, Atraumatic, Moist Mucous Membranes, PERRLA, Nose Appears Normal and Ears Appear Normal
Respiratory: Clear to Auscultation
Cardiac: Regular Rhythm and S1/S2
GI: Soft and Nontender
Musculoskeletal: No Clubbing and No Cyanosis
Skin: Warm and Dry
Neuro: Awake, Alert, Oriented and AO x 3
Psych: Calm
--- NOTE | 2025-07-18 08:36 | EDRN ---
Patient with c/o 6 out of 10 chest pain. Nitro drip started at 5mcg/min as ordered. at bedside seeing the patient. Patient initially refusing Nitro because of a headache. Patient continues with 5 out of 10 headache that he has had since
he's arrived.
[2025-07-18 09:05] LABS: Troponin I 0.388 ng/ml
[2025-07-18] MEDS: BUMEX 2 MG PO ×2 (09:15→19:31)
[2025-07-18] MEDS: DILAUDID 0.5 MG IV ×4 (09:16→21:25)
[2025-07-18] MEDS: LOW STRENGTH ASPIRIN 81 MG PO (09:19)
[2025-07-18] MEDS: PROTONIX 40 MG PO ×2 (09:19→19:32)
[2025-07-18] MEDS: PROZAC 60 MG PO (09:19)
[2025-07-18] MEDS: DEPAKENE 500 MG PO ×2 (09:24→19:33)
[2025-07-18] MEDS: NEURONTIN 600 MG PO ×3 (09:24→22:47)
[2025-07-18 09:28] LABS: Glucose - Point of Care 158 mg/dl (70-99)
[2025-07-18] MEDS: NOVOLOG FLEXPEN-HIGH RESISTANCE SC ×3 (09:30→15:44)
[2025-07-18] MEDS: FARXIGA 10 MG PO (09:31)
[2025-07-18] MEDS: NORVASC PO (09:45)
[2025-07-18] MEDS: ZESTRIL PO (09:45)
[2025-07-18] MEDS: COREG PO (09:45)
[2025-07-18] MEDS: LANTUS SC (10:52)
--- NOTE | 2025-07-18 11:10 | EDRN ---
Report given to SANDRA Paige. Patient taken to room 2249 on monitor on stretcher with Heparin drip infusing at 1000 units/HR and NTG drip at 15mcg/min. Patient denies c/o chest pain but continues with c/o headache.
--- NOTE | 2025-07-18 11:50 | PTCARENOTE ---
received pt from ED. AOx3, complains of 2/10 chest pain. Nitro gtt infusing per orders. Heparin gtt infusing per protocol. Oriented to room and unit. Call weathers within reach.
[2025-07-18 12:55] LABS: Glucose - Point of Care 157 mg/dl (70-99)
--- NOTE | 2025-07-18 13:38 | PTCARENOTE ---
@1245 pt complains of 6/[address] Howell made aware. increased nitro gtt per orders. EKg obtained. Will continue to monitor
[2025-07-18 13:53] LABS: Iron 58 ug/dl (49-181)
[2025-07-18 14:02] LABS: Total Iron Binding Capacity 504 ug/dl (261-462)
[2025-07-18 14:07] LABS: Troponin I 0.494 ng/ml
[2025-07-18 14:30] LABS: Ferritin 11.1 ng/ml (17.9-464.0)
[2025-07-18] MEDS: LOW STRENGTH ASPIRIN 243 MG PO (14:40)
[2025-07-18] MEDS: TYLENOL 650 MG PO ×2 (14:41→19:32)
[2025-07-18 14:43] LABS: APTT 28.7 Sec (23.4-35.0)
[2025-07-18 14:44] LABS: Vitamin B12 407 pg/ml (239-931)
--- NOTE | 2025-07-18 15:20 | CON.CAR ---
Consultation
Consultation Request
Date/Time Consultation Requested: 07/18/25, 1153am
Date/Time Consultation Performed: 07/18/25, 1240pm
Requesting Provider: Girish
Performing Provider: Lynda
Reason for Consultation: NSTEMI
Medical History
-
Chief Complaint: chest pain
History of Present Illness:
55 y/o male with PMH sig for CAD, s/p CABG (2018), recent [place] with PCI to vein graft-RCA (02/2025)- both in [place], [place]; typical atrial flutter s/p ablation 06/17/25, HTN, hyperlipidemia, DM, morbid obesity is admitted with NSTEMI. He woke up with
midsternal chest pain overnight. Also noted palps, tachycardia. Presented to ED and troponin was elevated. Chest pain continues and nitro was started and titrated to chest pain free.
Past Medical History
Past Medical History: Arrhythmias (typical atrial flutter), CAD, CHF (chronic HFPEF), HTN, Hypercholesterolemia and IDDM
Past Surgical History: Cardiac (CABG 2017)
Social History
Tobacco: Former Smoker
Family History
Family History: Early CAD (none)
Allergies / Home Medications
Allergy/AdvReac Type Severity Reaction Status Date / Time
morphine AdvReac Unknown causes Verified 07/18/25 01:14
'PTSD'
�Medication �Instructions �Recorded �Confirmed �Type
alprazolam 2 mg tablet 2 mg PO BID PRN anxiety 06/17/25 07/18/25 History
amitriptyline 25 mg tablet 25 mg PO HS 06/17/25 07/18/25 History
amlodipine 2.5 mg tablet 2.5 mg PO DAILY 06/17/25 07/18/25 History
apixaban 5 mg tablet (Eliquis) 5 mg PO BID 06/17/25 07/18/25 History
bumetanide 2 mg tablet 2 mg PO BID 06/17/25 07/18/25 History
carvedilol 25 mg tablet 25 mg PO BID 06/17/25 07/18/25 History
clopidogrel 75 mg tablet 75 mg PO DAILY 06/17/25 07/18/25 History
empagliflozin 10 mg tablet 10 mg PO DAILY 06/17/25 07/18/25 History
(Jardiance)
ezetimibe 10 mg tablet 10 mg PO HS 06/17/25 07/18/25 History
fenofibrate nanocrystallized 145 145 mg PO DAILY 06/17/25 07/18/25 History
mg tablet
gabapentin 600 mg tablet 600 mg PO TID 06/17/25 07/18/25 History
insulin aspart U-100 100 unit/mL 40 unit SC TIDWMEAL 06/17/25 07/18/25 History
(3 mL) subcutaneous pen (Novolog
FlexPen U-100 Insulin aspart)
insulin glargine U-300 conc 300 78 unit SC BID 06/17/25 07/18/25 History
unit/mL (1.5 mL) subcutaneous pen
(Tougi SoloStar U-300 Insulin)
lisinopril 20 mg tablet 20 mg PO DAILY 06/17/25 07/18/25 History
omeprazole 20 mg capsule,delayed 20 mg PO BID 06/17/25 07/18/25 History
release
prazosin 1 mg capsule 1 mg PO HS 06/17/25 07/18/25 History
rosuvastatin 40 mg tablet 40 mg PO HS 06/17/25 07/18/25 History
tirzepatide 2.5 mg/0.5 mL 2.5 mg SC QWEEK 06/17/25 07/18/25 History
subcutaneous pen injector
(Mounjaro)
valproic acid 250 mg capsule 500 mg PO BID 06/17/25 07/18/25 History
fluoxetine 60 mg tablet 60 mg PO DAILY 06/18/25 07/18/25 History
insulin aspart U-100 100 unit/mL 1 sliding scale dose SC DIRECTED 07/18/25 07/18/25 History
subcutaneous cartridge
Review of Systems
-
History Source: Patient
Cardiac: Chest Pain and Palpitations
Physical Exam
Vital Signs
Temp Pulse Resp BP Pulse Ox
97.9 F 91 16 151/87 94
07/18/25 15:05 07/18/25 15:05 07/18/25 15:05 07/18/25 13:01 07/18/25 15:05
Lab Results
07/18/25 01:37
07/18/25 01:37
Troponin I 0.494 ng/ml H* D 07/18/25 13:33
Deq-G-Afsugtrhdtj Pept 273 pg/ml 07/18/25 01:37
Physical Exam
General: Well Developed and Well Nourished
HEENT: Normocephalic and Anicteric
Respiratory: Clear and Non Labored Respirations
Cardiac: S1/S2 (normal), Regular Rhythm, Murmur (none), Peripheral Edema (none) and JVD (none)
Musculoskeletal: Clubbing, No Cyanosis and No Edema
Skin: Warm and Dry
Neuro: AO x 3
Psych: Calm
Impression / Plan
-
55 y/o male with PMH sig for CAD, s/p CABG (2018), recent [place] with PCI to vein graft-RCA (02/2025)- both in [place], [place]; typical atrial flutter s/p ablation 06/17/25, HTN, hyperlipidemia, DM, morbid obesity is admitted with NSTEMI.
#NSTEMI
-threat to life
-chest pain free, EKG with nonspecific ST abnl
-TnI 0.516 and trending
-ASA 324mg, heparin drip, nitro drip, beta gary
-cont home Plavix
-likely cath in AM
# CAD, prior CABG x3 (2018): KELLY-LAD, SVG-OM2, SVG-PDA
-recent VG-RCA/PDA PCI (02/2025)
-continue uninterrupted clopidogrel
-stable
# ICM, with improved LVEF, and chronic HFPEF
-echo 06/11/25: EF 'normal', no sig valve disease; TDS, rec contrast for future
-echo with contrast in AM
-cont GDMT with carvedilol 25mg bid, lisinopril 20mg daily, SGLT2i
-cont bumex 2mg bid
# Typical atrial flutter s/p ablation 06/17/25
-in sinus
-outpatient regimen is plavix/eliquis
# Hyperlipidemia
-cont rosuvastatin 40mg daily
-check lipids
# HTN
-cont coreg, amlodipine
-also on nitro drip
# Morbid Obesity
# DM
# h/o severe hyperkalemia in setting of septic shock requiring HD 09/2024
Data Reviewed
-
EKG: Tracing Personally Visualized and interpreted (NSR, nonspecific ST abnl)
Labs: Labs Reviewed by me
[2025-07-18 15:36] LABS: Troponin I 0.516 ng/ml
[2025-07-18] MEDS: PLAVIX 75 MG PO (15:42)
[2025-07-18 15:43] LABS: Glucose - Point of Care 135 mg/dl (70-99)
[2025-07-18] MEDS: COREG 25 MG PO (19:32)
[2025-07-18] MEDS: XANAX 2 MG PO (19:45)
[2025-07-18 21:29] LABS: APTT 32.1 Sec (23.4-35.0)
[2025-07-18 21:51] LABS: Troponin I 0.298 ng/ml
[2025-07-18 22:28] LABS: Glucose - Point of Care 163 mg/dl (70-99)
[2025-07-18] MEDS: LANTUS 0.24 UNITS SC (22:46)
[2025-07-18] MEDS: CRESTOR 40 MG PO (22:47)
[2025-07-18] MEDS: ELAVIL 25 MG PO (22:47)
[2025-07-18] MEDS: MINIPRESS 1 MG PO (22:47)
[2025-07-19] VITALS (15 sets, daily range): BP systolic 92–140; BP diastolic 51–78; BMI 44.6
--- NOTE | 2025-07-19 00:11 | PTCARENOTE ---
Tele remains SR w/ occasional PACs. Patient denies any chest discomfort, but does complain of headache pain. PRN Tylenol and Dilaudid administered --see MAR for further details. Patient aware to remain NPO for poss cath on 07/19. IV Heparin gtt
infusing 1400units/hr and IV Nitro infusing at 5mcg/min. Patient aware of POC. Call weathers in reach.
[2025-07-19] MEDS: DILAUDID 0.5 MG IV ×2 (01:32→07:28)
[2025-07-19 04:08] LABS: Hematocrit 32.8 % (39.0-52.0); Hemoglobin 9.0 g/dL (13.0-18.0); Mean Corp Hgb Conc. 27.4 g/dL (33.0-37.0); Mean Corpuscular Volume 84.5 fL (80.0-94.0); Platelet Count 246 10^3/uL (130-400); Red Cell Dist. Width 16.7 % (11.5-14.5)
[2025-07-19 04:15] LABS: APTT 33.5 Sec (23.4-35.0)
[2025-07-19 04:28] LABS: ALT (SGPT) 45 U/L (0-50); AST (SGOT) 43 U/L (17-59); Albumin 4.0 g/dl (3.5-5.0); Alkaline Phosphatase 99 U/L (38-126); Blood Urea Nitrogen 26 mg/dl (9-20); Calcium 8.6 mg/dl (8.4-10.2); Carbon Dioxide 36 mmol/L (22-30); Chloride 95 mmol/L (98-107); Estimated Creatinine Clearance > 125 ml/min; Glucose 188 mg/dl (70-99); HDL Cholesterol 21 mg/dl; Potassium 4.9 mmol/L (3.5-5.1); Sodium 138 mmol/L (135-145); Total Protein 7.6 g/dl (6.3-8.2); eGFR > 60.00
[2025-07-19] MEDS: HEPARIN 25000 UNITS/250 ML IV (04:39)
[2025-07-19 04:43] LABS: LDL Cholesterol, Calculated -54 mg/dl; Very Low Density Lipoprotein 258 mg/dl (0-30)
[2025-07-19 05:06] LABS: LDL Cholesterol, Direct < 30 mg/dl
[2025-07-19] MEDS: FLUSH (NSS) 2 FLUSH IV (07:28)
[2025-07-19] MEDS: NOVOLOG FLEXPEN-HIGH RESISTANCE SC (08:30)
[2025-07-19 08:33] LABS: Glucose - Point of Care 162 mg/dl (70-99)
[2025-07-19 08:57] LABS: Glycohemoglobin (HgbA1c) 7.5 % (4.0-5.6)
--- NOTE | 2025-07-19 09:29 | W.CON.NEPH ---
Consultation
-
Date/Time Consultation Requested: 07/19/2025 9:00 AM
Date/Time Consultation Performed: 07/19/2025 938
Requesting Provider: Dr. Powers
Performing Provider: Dr. Woo
Reason for Consultation: History of TRICIA/hypertension
Medical History
-
Chief Complaint: Hypertension/history of TRICIA
History of Present Illness:
55 y/o male with PMH sig for CAD, s/p CABG (2018), recent [place] with PCI to vein graft-RCA (02/2025)- both in [place], [place]; typical atrial flutter s/p ablation 06/17/25, HTN on carvedilol amlodipine lisinopril, hyperlipidemia, DM on insulin therapy,
morbid obesity is admitted with NSTEMI. He woke up with midsternal chest pain overnight. Also noted palps, tachycardia. Presented to ED and troponin was elevated. Chest pain continues and nitro was started and titrated to chest pain free. The
patient needs to undergo cardiac catheterization and nephrology was consulted as he had a prior history of acute kidney injury requiring dialysis in the past.
Past Medical History
Arrhythmias (typical atrial flutter), CAD, CHF (chronic HFPEF), HTN, Hypercholesterolemia and IDDM Cardiac (CABG 2017) chronic hypoxic respiratory failure, history of atrial ablation
Prior history of acute kidney injury following cardiac catheterization
History of PTCA with 4 stents in February 2025
Social History
Tobacco: Former Smoker
Alcohol: Occasional
Family History
CAD
Allergies / Home Medications
Allergy/AdvReac Type Severity Reaction Status Date / Time
morphine AdvReac Unknown causes Verified 07/18/25 01:14
'PTSD'
�Medication �Instructions �Recorded �Confirmed �Type
alprazolam 2 mg tablet 2 mg PO BID PRN anxiety 06/17/25 07/18/25 History
amitriptyline 25 mg tablet 25 mg PO HS 06/17/25 07/18/25 History
amlodipine 2.5 mg tablet 2.5 mg PO DAILY 06/17/25 07/18/25 History
apixaban 5 mg tablet (Eliquis) 5 mg PO BID 06/17/25 07/18/25 History
bumetanide 2 mg tablet 2 mg PO BID 06/17/25 07/18/25 History
carvedilol 25 mg tablet 25 mg PO BID 06/17/25 07/18/25 History
clopidogrel 75 mg tablet 75 mg PO DAILY 06/17/25 07/18/25 History
empagliflozin 10 mg tablet 10 mg PO DAILY 06/17/25 07/18/25 History
(Jardiance)
ezetimibe 10 mg tablet 10 mg PO HS 06/17/25 07/18/25 History
fenofibrate nanocrystallized 145 145 mg PO DAILY 06/17/25 07/18/25 History
mg tablet
gabapentin 600 mg tablet 600 mg PO TID 06/17/25 07/18/25 History
insulin aspart U-100 100 unit/mL 40 unit SC TIDWMEAL 06/17/25 07/18/25 History
(3 mL) subcutaneous pen (Novolog
FlexPen U-100 Insulin aspart)
insulin glargine U-300 conc 300 78 unit SC BID 06/17/25 07/18/25 History
unit/mL (1.5 mL) subcutaneous pen
(Toujeo SoloStar U-300 Insulin)
lisinopril 20 mg tablet 20 mg PO DAILY 06/17/25 07/18/25 History
omeprazole 20 mg capsule,delayed 20 mg PO BID 06/17/25 07/18/25 History
release
prazosin 1 mg capsule 1 mg PO HS 06/17/25 07/18/25 History
rosuvastatin 40 mg tablet 40 mg PO HS 06/17/25 07/18/25 History
tirzepatide 2.5 mg/0.5 mL 2.5 mg SC QWEEK 06/17/25 07/18/25 History
subcutaneous pen injector
(Mounjaro)
valproic acid 250 mg capsule 500 mg PO BID 06/17/25 07/18/25 History
fluoxetine 60 mg tablet 60 mg PO DAILY 06/18/25 07/18/25 History
insulin aspart U-100 100 unit/mL 1 sliding scale dose SC DIRECTED 07/18/25 07/18/25 History
subcutaneous cartridge
Review of Systems
-
History Source: Patient
All other systems: Negative unless noted
Constitutional: No Symptoms
EENT: Other (Headache on nitroglycerin drip)
Respiratory: Other (Chronic hypoxia on nasal cannula oxygen)
Cardiac: Other (No current chest pain but patient is on nitroglycerin drip)
Abdomen/GI: No Symptoms
: No Symptoms
Musculoskeletal: No Symptoms
Skin: No Symptoms
Neurological: Other (Lower extremity neuropathy)
Physical Exam
Vital Signs
Vital Signs
Temp Pulse Resp BP Pulse Ox
98.7 F 89 20 98/59 94
07/19/25 07:13 07/19/25 04:00 07/19/25 07:13 07/19/25 03:42 07/19/25 07:13
Lab Results
07/19/25 03:49
07/19/25 03:49
WBC 7.1 10^3/uL (4.8-10.8) 07/19/25 03:49
RBC 3.88 10^6/uL (4.70-6.10) L 07/19/25 03:49
Hgb 9.0 g/dL (13.0-18.0) L 07/19/25 03:49
Hct 32.8 % (39.0-52.0) L 07/19/25 03:49
Plt Count 246 10^3/uL (130-400) D 07/19/25 03:49
Sodium 138 mmol/L (135-145) 07/19/25 03:49
Potassium 4.9 mmol/L (3.5-5.1) 07/19/25 03:49
Chloride 95 mmol/L (98-107) L 07/19/25 03:49
Carbon Dioxide 36 mmol/L (22-30) H 07/19/25 03:49
BUN 26 mg/dl (9-20) H 07/19/25 03:49
Creatinine 0.9 mg/dL (0.7-1.3) 07/19/25 03:49
eGFR > 60.00 07/19/25 03:49
Glucose 188 mg/dl (70-99) H 07/19/25 03:49
Calcium 8.6 mg/dl (8.4-10.2) 07/19/25 03:49
Kly-U-Uqlgbtujutr Pept 273 pg/ml 07/18/25 01:37
Albumin 4.0 g/dl (3.5-5.0) 07/19/25 03:49
Physical Exam
General: AOx3, Nontoxic , NAD, obese
HEENT: PERRL, EOMI, Anicteric, Conjunctivae Clear, Ear/Nose Intact, Hearing Normal, Oropharynx Clear/Moist, Dentition Intact, Facial Symmetry, Neck Supple, Neck: Trachea Midline, No JVD and No Thyromegaly, no Bruits
Respiratory: Clear to auscultation bilaterally with normal lung excursion
Cardiac: S1/S2 and Regular Rate/Rhythm
Breast: Deferred by me
Abdomen: Soft, Nontender, Nondistended, Normal Bowel Sounds and No Hepatosplenomegaly
Rectal: Deferred by Provider
Genito-urinary: No Costovertebral Tenderness
Extremities: No Clubbing, No Cyanosis and No Edema
Skin: No Rash or open lesions
Neuro: Nonfocal/Grossly Intact, CN II-XII (Intact) and Strength (Musculoskeletal exam 5 out of 5 both upper and lower extremities)
Hematologic/Lymphatic: No Cervical Lymphadenopathy, No Submandibular Lymphadenopathy and No Supraclavicular Lymphadenopathy
Psych: Mood/afflect pleasant, Insight/judgement good and Appropriate
Vascular: plus 1 pedal and radial pulses
Data Reviewed
-
Radiology: Image Personally Visualized and interpreted (Chest x-ray personally reviewed shows elevated right hemidiaphragm sternal wires)
Labs: Labs Reviewed by me (BMP CBC)
Old Records: Reviewed (Reviewed previous lab work from date 06/18/2025 creatinine 0.9)
Assessment/Plan
-
Impression:
Non-ST elevation [place] with history of coronary artery bypass and multiple stenting procedures
Hypertension
Diabetes
History of prior TRICIA
Ischemic cardiomyopathy
Plan:
Creatinine normalized and stable
Can provide sodium HCO3 IV fluid contrast prophylaxis prior to cardiac catheterization given prior history of acute kidney injury with subsequent hyperkalemia (during sepsis admission at outside hospital in September 2024) requiring a dialysis session
Will check urine protein to creatinine ratio and eventual kidney ultrasound to assess for possible diabetic nephropathy
[2025-07-19] MEDS: LOW STRENGTH ASPIRIN 81 MG PO (09:55)
[2025-07-19] MEDS: DEPAKENE 500 MG PO ×2 (09:55→19:53)
[2025-07-19] MEDS: FARXIGA 10 MG PO (09:55)
[2025-07-19] MEDS: PLAVIX 75 MG PO (09:56)
[2025-07-19] MEDS: NEURONTIN 600 MG PO ×3 (09:56→22:12)
[2025-07-19] MEDS: NORVASC 2.5 MG PO (09:56)
[2025-07-19] MEDS: COREG 25 MG PO ×2 (09:57→19:53)
[2025-07-19] MEDS: PROZAC 60 MG PO (09:57)
[2025-07-19] MEDS: BUMEX 2 MG PO ×2 (09:58→19:53)
[2025-07-19] MEDS: ZESTRIL 20 MG PO (10:01)
[2025-07-19] MEDS: PROTONIX 40 MG PO ×2 (10:01→19:53)
--- NOTE | 2025-07-19 10:04 | W.PN.CD ---
Today's Communication / Plan
-
Renal consult, had TRICIA with need for HD in past year or so
Cath, possible PCI today
Pt declines Vascepa I was going to add for elevated TG
Echo
Impression / Plan
-
55 y/o male with PMH sig for CAD, s/p CABG (2018), recent [facility] with PCI to vein graft-RCA (02/2025)- both in [place], [place]; typical atrial flutter s/p ablation 06/17/25, HTN, hyperlipidemia, DM, morbid obesity is admitted with NSTEMI.
#NSTEMI
-threat to life
-chest pain free, EKG with nonspecific ST abnl
-Peak TnI 0.516 and trending
-ASA 324mg X1 now 81 daily, heparin drip, nitro drip, beta gary
-cont home Plavix
-cath today after renal consult
- Will prefer to minimize both Triple therapy
# CAD, prior CABG x3 (2018): KELLY-LAD, SVG-OM2, SVG-PDA
-recent VG-RCA/PDA PCI (02/2025)
# ICM, with improved LVEF, and chronic HFimprovedEF (from midrange)
-echo 06/11/25: EF 'normal', no sig valve disease; TDS, rec contrast for future
-echo with contrast today
-cont GDMT with carvedilol 25mg bid, lisinopril 20mg daily, SGLT2i
-cont bumex 2mg bid
# Typical atrial flutter s/p ablation 06/17/25
-in sinus
-outpatient regimen is plavix/eliquis
# Hyperlipidemia
-cont rosuvastatin 40mg daily
-check lipids
# HTN
-cont coreg, amlodipine
-also on nitro drip
# Morbid Obesity
# DM
# h/o severe hyperkalemia in setting of septic shock requiring HD 09/2024
Physical Exam
Vital Signs/Labs
Vital Signs
Temp Pulse Resp BP Pulse Ox
98.7 F 95 20 115/64 93
07/19/25 07:13 07/19/25 09:00 07/19/25 07:13 07/19/25 07:13 07/19/25 07:13
07/18/25 07/19/25 07/20/25
06:59 06:59 06:59
Actual Weight 152.1 kg 149.2 kg
07/19/25 03:49
07/19/25 03:49
APTT 33.5 Sec (23.4-35.0) 07/19/25 03:49
Triglycerides 1293 mg/dl (10-149) H 07/19/25 03:49
LDL Cholesterol, Calc -54 mg/dl 07/19/25 03:49
VLDL Cholesterol, Calc 258 mg/dl (0-30) H 07/19/25 03:49
HDL Cholesterol 21 mg/dl 07/19/25 03:49
07/18/25
01:37
Pqa-Z-Ibiiafkagso Pept 273
LAB Results
07/18/25 07/18/25 07/18/25
01:37 03:27 08:30
Troponin I 0.019 0.069 H* D 0.388 H* D
07/18/25 07/18/25 07/18/25
09:00 13:33 14:22
Troponin I Cancelled 0.494 H* D 0.516 H*
07/18/25 07/18/25
20:01 21:09
Troponin I Cancelled 0.298 H* D
Physical Exam
Constitutional: No acute distress
EENT: Anicteric
Cardiovascular: Rhythm & rate is regular and Pedal edema is absent
Respiratory: Respiratory effort normal and Lungs clear to auscul.
GI: Soft and Distention absent
Neuro/Psych: AO x 3
Data Reviewed
-
Date of Service: July 19, 2025
--- NOTE | 2025-07-19 10:57 | PTCARENOTE ---
Received patient this morning lying in bed, no complaints of chest pain but continues to have a headache and medicated with IV dilaudid as ordered with relief. Patient sent to the laborer cheesemaking at 1015, telephoned the laborer cheesemaking to alert them of new order
from nephrology for sodium bicarb IV prior to procedure.
[2025-07-19 11:35] LABS: ACT-LR - POC 387 Seconds (116-155)
[2025-07-19 11:48] LABS: ACT-LR - POC 285 Seconds (116-155)
--- NOTE | 2025-07-19 11:50 | ITS.CL.ANGIO ---
[employer] - Angioplasty
Angioplasty
Procedure Report:
CARDIAC CATHETERIZATION REPORT
Date of Procedure: 07/19/2025
Referring: Jeremiah Powers M.D.
INDICATION: Non-ST elevation myocardial infarction, known CAD status post prior bypass.
PROCEDURE:
1. Left heart catheterization.
2. Coronary angiography
3. Bypass angiography.
4. Successful PCI to the mid OM2 through SVG.
A total of 72 minutes of procedural/moderate sedation was utilized. An independent certified medical technician assistant was present to assist with and help manage the patient's level of consciousness and physiologic status.
ACCESS:
1. 6 Portuguese right common femoral artery using a modified Seldinger technique with a micropuncture kit under ultrasound guidance.
CATHETERS:
1. 5 Portuguese JL 4.
2. 5 Portuguese JR4.
3. 5 Portuguese SEGUNDO.
4. 5 Portuguese AL-1.
5. 6 Portuguese AL-1 guiding catheter.
HEMODYNAMIC DATA
Weight (kg): 149.2
AO (s/d/x, mmHg): 92/59/67
LV (s/x mmHg): 96/25
AV gradient (x, mmHg): None.
LEFT VENTRICULOGRAPHY: Not performed.
CORONARY ANGIOGRAPHY
Dominance: Right.
Left Main: Normal size, bifurcating vessel. There is mild distal tapering of the left main.
LAD: Normal size vessel giving rise to 1 significant diagonal. There is a long, 80% lesion in the mid LAD. There is a 40% lesion in the distal LAD as it approaches the apex. The distal vessel is supplied by patent KELLY graft.
Ramus: Congenitally absent.
Circumflex: Large size, nondominant vessel giving rise to 4 obtuse marginals. There are luminal irregularities throughout the majority of the circumflex. There is a 70% lesion in the proximal portion of OM 2. There is another 90% lesion in
the mid OM2, immediately after the SVG anastomosis.
RCA: Normal size, dominant vessel. The vessel is chronically totally occluded at its origin through the distal RCA to the level of the crux.
BYPASS GRAFT ANGIOGRAPHY
KELLY to LAD: Normal size graft with end-to-side anastomosis to the mid LAD. There is no evidence of stenosis or graft degeneration.
SVG to RPDA: Large size graft with end-to-side anastomosis to the mid RPDA. The graft backfills the RPDA and the small right posterolateral branch. Patent stents are visible in the proximal, mid and distal graft without evidence of in-stent
restenosis. There is a 50% lesion in the proximal graft, in between 2 stented segments.
SVG to OM2: Large size graft with end-to-side anastomosis to the mid OM 2. There is no evidence of stenosis or graft degeneration. There is slow flow in the graft. Angiography reveals a 90% lesion in the obtuse marginal immediately distal to the
graft anastomosis.
INTERVENTION(S)
1. Successful PCI of the 90% OM 2 lesion through the SVG to OM 2 anastomosis (Xience Skypoint 2.25 x 12 ANA, postdilated with a 2.25 NC balloon) with reduction in stenosis to 0%, maintaining JOSE-3 flow.
Narrative:
The decision was made to proceed with percutaneous coronary intervention. The diagnostic catheter was removed over a wire and a 6Fr AL-1 guiding catheter was advanced to the aortic root and seated in the SVG to OM 2. Additional heparin was given and
a Power Turn Flex wire was advanced into the distal SVG. A GuideLiner was advanced over the wire/balloon to allow for better visualization with less contrast. The wire was removed at least once for reshaping due to the severe stenosis at the
anastomosis site. We were ultimately able to cross this lesion with some difficulty, confirming the severity of the OM2 stenosis. The 90% OM 2 anastomosis lesion was predilated with a 2.0 x 12 semi-compliant balloon to 12 lavell. The semi-compliant
balloon was removed and a Xience Skypoint 2.25 x 12 drug-eluting stent was advanced. The stent was deployed at 9 atmospheres. The stent balloon was removed. A 2.25 x 12 noncompliant balloon was advanced into the stent and the stent was postdilated
to 12 atmospheres. Angiography was performed in orthogonal views, confirming good stent expansion and an excellent angiographic result. The coronary wire was withdrawn and the guide was disengaged from the artery. The catheter was removed over a
standard J-wire.
Closure Device: 6 Portuguese Angio-Seal.
Radiation (mGy): 2259.88
DAP (cm2.Gy): 188.80
Fluoroscopy time (minutes): 15.2
CONCLUSIONS
1. Right dominant circulation with a chronic total occlusion of the proximal RCA, and 80% lesion in the mid LAD, a 40% lesion in the distal LAD and a 70% lesion in the proximal portion of OM 2 status post prior bypass (KELLY to LAD, SVG to RPDA and
SVG to OM 2) with patent stents in the SVG to RPDA, a 50% lesion in the proximal RPDA graft in between 2 stented segments and a 90% lesion in the mid OM2, immediately after the vein graft anastomosis, status post successful PCI through the SVG
(Xience Skypoint 2.25 x 12 ANA, postdilated with a 2.25 NC balloon) with reduction in stenosis to 0%, maintaining JOSE-3 flow.
2. Severely elevated filling pressures (LVEDP = 25 mmHg at 149.2 kg).
RECOMMENDATIONS:
1. Expectant management after cardiac catheterization via right common femoral approach.
2. Limited weight bearing for one week.
3. Resume antiplatelet/anticoagulation therapy with clopidogrel and apixaban. Apixaban may begin this evening. Continue clopidogrel for at least 12 months.
4. OMT/GDMT as hemodynamics will tolerate.
5. Aggressive secondary prevention with high-dose, high potency statin, ezetimibe, GLP-1 agonist and fenofibrate.
6. Echocardiogram ordered and pending.
7. Referral to cardiac rehab.
Copy to: Jeremiah Powers M.D., JEAN CLAUDE Carrion
Latrell Sen, DO, FACC, FACP
[2025-07-19 12:34] LABS: Glucose - Point of Care 157 mg/dl (70-99)
--- NOTE | 2025-07-19 12:53 | CM ---
Reviewed chart. Met with and Mrs. Blount to review discharge plans. He states prior to admission he resides with his spouse in a two story home with two steps to enter. He states his main bedroom suite is on the first floor. He states prior to
admission he was independent with ambulation and adls. He states he has home 02 at home. He states he wears his home 02 all the time. He states he uses 02 at 2 liters during the day and 6 liters during the night time. He states [facility]
his home 02. He states he has portable and concentrator at home. He states he a prescription plan and uses [facility]. Medical work-up in progress. The discharge plan is to return home with his spouse when medically stable.
[2025-07-19] MEDS: LANTUS 0.24 UNITS SC ×2 (12:56→19:51)
[2025-07-19] MEDS: NOVOLOG FLEXPEN-HIGH RESISTANCE 2 UNITS SC ×2 (12:56→16:52)
[2025-07-19] MEDS: SODIUM BICARBONATE 1150 MEQ IV (12:58)
[2025-07-19] MEDS: FLUSH (NSS) 1 FLUSH IV (12:59)
--- NOTE | 2025-07-19 13:33 | W.PN.HOSP.TC ---
Today's Communication/Plan
-
Status post stent-echo pending.
Assessment / Plan
Assessment / Plan
Impression:
patient is a 55y M with PMH significant for ASCVD, hypertension and DM-II who presents to ED complaining of chest pain. Patient noted to have elevated troponin.
Seen by cardiology and plan was for cardiac cath, status post stent
Assessment/plan:
Non-STEMI
ASCVD
- Current chest pain is identical to prior presentation for NSTEMI / ACS.
- Contiue IV heparin
- Continue efforts at pain control - having intermittent pain in the ED.
- NTG gtt and titrate as needed. Morphine / Dilaudid PRN.
- ASA daily. Continue statin.
- Troponin peaked.
07/19
Patient underwent cardiac cath :
Status post successful PCI to the mid OM2 through SVG.
Cardiology recommendations after cardiac cath:
1. Expectant management after cardiac catheterization via right common femoral approach.
2. Limited weight bearing for one week.
3. Resume antiplatelet/anticoagulation therapy with clopidogrel and apixaban. Apixaban may begin this evening. Continue clopidogrel for at least 12 months.
4. OMT/GDMT as hemodynamics will tolerate.
5. Aggressive secondary prevention with high-dose, high potency statin, ezetimibe, GLP-1 agonist and fenofibrate.
6. Echocardiogram ordered and pending.
7. Referral to cardiac rehab.
Atrial flutter
- Patient briefly in rapid SVT on monitor in ED - has maintained NSR since that time.
- ? recurrent A-Flutter s/p RFA ablation last month.
- Monitor on telemetry.
- Cardiology eval as noted above.
Hypercholesterolemia/hypertriglyceridemia
Fasting lipid profile shows triglyceride 1293.
Total cholesterol 225
LDL calculated less than 30.
VLDL 258.
HDL 21
Chronic HFmrEF
- Stable Mild pedal edema in the past 24 hours per patient.
- Continue usual dose of bumetanide for now.
- IV dose PRN for signs / symptoms of volume overload.
Benign Hypertension
- Continue med regimen and adjust as needed for adequate control.
DM-II
- On very high dose insulin regimen.
- Continue basal insulin at decreased dose for now / while NPO.
- Follow glucose and cover with SSI as needed.
- Hemoglobin A1C 7.5
Anemia of Chronic Disease
- Hgb is at / near previously noted baseline.
- ? etiology of anemia.
- Check iron studies, B12, etc.
Chronic Hypoxemic Respiratory Failure
AURN not on CPAP
- Secondary to morbid obesity / OHV +/- COPD.
- Continue usual supplemental O2.
- Patient needs to complete PSG / CPAP set up process as an outpatient.
Morbid Obesity due to excess calories
- Affects all aspects of care.
- Encourage efforts at weight loss including health diet, increased exercise, etc.
CODE STATUS: Full code
DVT prophylaxis: Start Eliquis tonigh
Diet: DM diet
Family communication: Discussed with at bedside
Disposition: Status post stent-echo pending.
Total time spent on today's encounter was 55 minutes which included time spent in counseling the patient/family regarding diagnosis and treatment plan as listed above, goals of care, and symptom management. Case was discussed with nursing staff,
specialists, and care coordinators/case management. All labs and imaging personally reviewed by me. Remainder the time spent in detailed review of previous records, lab data, imaging, and other medical provider documentation.
Anticipated Discharge: Within 24 hours
Subjective/Interval History
-
Date of Service: July 19, 2025
Patient seen and examined at bedside, denies any chest pain or shortness of breath, no abdominal pain, no nausea, no vomiting, no diarrhea or constipation.
at bedside, for cardiac cath today, nephrology consulted.
Patient status post stent.
Objective Data
-
Labs:
Laboratory Results
07/19/25 07/19/25
03:49 10:55
WBC 7.1
Hgb 9.0 L
Hct 32.8 L
Plt Count 246 D
APTT 33.5 Cancelled
Sodium 138
Potassium 4.9
Chloride 95 L
Carbon Dioxide 36 H
BUN 26 H
Creatinine 0.9
Glucose 188 H
Calcium 8.6
Total Bilirubin 0.5
AST 43
ALT 45
Alkaline Phosphatase 99
Vital Signs:
Vital Signs
Temp Pulse Resp BP Pulse Ox
98.3 F 86 20 100/63 98
07/19/25 12:31 07/19/25 13:00 07/19/25 12:31 07/19/25 13:00 07/19/25 13:00
I&O
07/18/25 07/19/25 07/20/25
06:59 06:59 06:59
Intake Total 480 / 480
Output Total 3050 / 3050
Balance -2570 / -2570
Physical Exam
-
General: Well Developed, Well Nourished, No Apparent Distress and Comfortable
HEENT: Normocephalic, Atraumatic, Moist Mucous Membranes, No Ptosis, PERRLA and Nose Appears Normal
Respiratory: Clear to Auscultation and Non Labored Respirations
Cardiac: Regular Rhythm and S1/S2
Breast: Deferred by me
GI: Soft, Nontender, Nondistended and Normal Bowel Sounds
Genito-urinary: No Costovertebral Tender
Musculoskeletal: No Clubbing, No Cyanosis and No Edema
Skin: Warm
Neuro: Awake, Alert, Oriented, AO x 3 and No Motor Deficits
Psych: Calm
--- NOTE | 2025-07-19 14:55 | PTCARENOTE ---
Patient returned from the phlebotomist lab assistant at 1215, has maintained bedrest as per orders. Right groin dressing has a scant amount of serosanguineous drainage which was marked and has not increased. DP pulse palpable, patient is comfortable with no
complaints of chest pain. Monitoring VS post angio, at the bedside. Telephoned Dr. Woo re: bicarb infusion orders and ok to be given post cath which has been infusing as ordered. Call weathers in reach.
[2025-07-19 16:52] LABS: Glucose - Point of Care 194 mg/dl (70-99)
[2025-07-19 18:16] LABS: Urine Character Clear (Clear)
[2025-07-19 18:26] LABS: Urine Squamous Cell 0-2 /LPF (Few)
[2025-07-19 18:27] LABS: Urine Red Blood Cell 0-2 /HPF (0-2); Urine White Cell 0-2 /HPF (0-5)
[2025-07-19 19:50] LABS: Glucose - Point of Care 178 mg/dl (70-99)
[2025-07-19] MEDS: ELIQUIS 5 MG PO (19:53)
[2025-07-19] MEDS: XANAX 2 MG PO (20:07)
[2025-07-19 22:08] LABS: Glucose - Point of Care 172 mg/dl (70-99)
[2025-07-19] MEDS: ELAVIL 25 MG PO (22:13)
[2025-07-19] MEDS: CRESTOR 40 MG PO (22:14)
[2025-07-19] MEDS: MINIPRESS 1 MG PO (22:14)
[2025-07-20] VITALS (8 sets, daily range): BP systolic 104–124; BP diastolic 51–82; BMI 44.7
--- NOTE | 2025-07-20 01:18 | PTCARENOTE ---
Received pt at change of shift resting in bed. SR on tele, HR 80's. Tele alarmed tachy, Afib/flutter HR 120's. pt asymptomatic. tele strip printed. Aspen Sahni NP made aware--PRODUCT SALES ENGINEER added order for mag to AM labs. PRN Xanax administered per pt
request--see MAR. Encouraged pt to call RN with any questions/concerns. Call weathers within reach.
[2025-07-20] MEDS: LOPRESSOR 5 MG IV (03:40)
[2025-07-20 03:49] LABS: Blood Urea Nitrogen 23 mg/dl (9-20); Calcium 8.7 mg/dl (8.4-10.2); Carbon Dioxide 34 mmol/L (22-30); Chloride 94 mmol/L (98-107); Estimated Creatinine Clearance 123 ml/min; Glucose 176 mg/dl (70-99); Magnesium 2.1 mg/dl (1.6-2.3); Potassium 4.3 mmol/L (3.5-5.1); Sodium 137 mmol/L (135-145); eGFR > 60.00
[2025-07-20] MEDS: ZOFRAN 4 MG IV (03:58)
[2025-07-20 04:17] LABS: Hematocrit 31.9 % (39.0-52.0); Hemoglobin 8.8 g/dL (13.0-18.0); Mean Corp Hgb Conc. 27.6 g/dL (33.0-37.0); Mean Corpuscular Volume 83.3 fL (80.0-94.0); Nucleated Red Blood Cells % 0 % (-); Platelet Count 248 10^3/uL (130-400); Red Cell Dist. Width 17.1 % (11.5-14.5)
--- NOTE | 2025-07-20 04:48 | W.PN.UPDATE ---
Update Note
Progress Note Update
0330 pt with run of sustained afib with rvr HR to 150 asymptomatic. iv lopressor [id number]. Broke to NSR afterward.
--- NOTE | 2025-07-20 05:28 | PTCARENOTE ---
at approx. 0330 pt tele alarmed tachy, HR in the 140's-150's. EKG obtained confirming afib with RVR. pt asymptomatic. Reached out to Aspen Sahni NP who ordered IV lopressor. Administered per order--see NOV. pt c/o nausea- MOSHGIACH ordered Zofran. pt
flipped back and currently SR, HR in the 80's.
[2025-07-20 07:36] LABS: Glucose - Point of Care 313 mg/dl (70-99)
[2025-07-20] MEDS: NOVOLOG FLEXPEN-HIGH RESISTANCE 10 UNITS SC (08:03)
[2025-07-20] MEDS: LANTUS 0.24 UNITS SC (08:03)
[2025-07-20] MEDS: NEURONTIN 600 MG PO (09:01)
[2025-07-20] MEDS: PLAVIX 75 MG PO (09:01)
[2025-07-20] MEDS: PROZAC 60 MG PO (09:01)
[2025-07-20] MEDS: BUMEX 2 MG PO (09:01)
[2025-07-20] MEDS: NORVASC 2.5 MG PO (09:01)
[2025-07-20] MEDS: PROTONIX 40 MG PO (09:01)
[2025-07-20] MEDS: FARXIGA 10 MG PO (09:01)
[2025-07-20] MEDS: DEPAKENE 500 MG PO (09:02)
[2025-07-20] MEDS: ZESTRIL 20 MG PO (09:02)
[2025-07-20] MEDS: COREG 25 MG PO (09:02)
[2025-07-20] MEDS: ELIQUIS 5 MG PO (09:02)
--- NOTE | 2025-07-20 09:55 | W.PN.NEPH.PH ---
Today's Communication / Plan
-
GFR appears to be stable 24 hours postprocedure
Follow-up BMP in a
Will follow-up with patient as outpatient for diabetic nephropathy
Assessment/Plan
-
Impression:
Non-ST elevation WI with history of coronary artery bypass and multiple stenting procedures
Hypertension
Diabetes
History of prior TRICIA
Ischemic cardiomyopathy
Plan:
Status post cardiac catheterization on 07/19/2025 with successful PCI of OM 2 lesion
Creatinine normalized and stable at 1
Provide sodium HCO3 IV fluid contrast prophylaxis prior to cardiac catheterization given prior history of acute kidney injury with subsequent hyperkalemia (during sepsis admission at outside hospital in September 2024) requiring a dialysis session
Patient with likely underlying diabetic nephropathy is noted to have 800 mg of proteinuria by urine protein to creatinine ratio, maintain ARB and SGLT2 inhibitor
-
-
Date of Service: July 20, 2025
CC / HPI / ROS
-
Chief Complaint:
Diabetic nephropathy
History of Present Illness:
Status post stenting procedure done via coronary artery catheterization on 07/19/2025
Hemodynamically stable
Creatinine stable at 1
Review of Systems:
Massively nonoliguric at 4 L
No shortness of
Labs
-
Labs:
WBC 7.3 10^3/uL (4.8-10.8) 07/20/25 02:56
RBC 3.83 10^6/uL (4.70-6.10) L 07/20/25 02:56
Hgb 8.8 g/dL (13.0-18.0) L 07/20/25 02:56
Hct 31.9 % (39.0-52.0) L 07/20/25 02:56
Plt Count 248 10^3/uL (130-400) 07/20/25 02:56
Sodium 137 mmol/L (135-145) 07/20/25 02:56
Potassium 4.3 mmol/L (3.5-5.1) 07/20/25 02:56
Chloride 94 mmol/L (98-107) L 07/20/25 02:56
Carbon Dioxide 34 mmol/L (22-30) H 07/20/25 02:56
BUN 23 mg/dl (9-20) H 07/20/25 02:56
Creatinine 1.0 mg/dL (0.7-1.3) 07/20/25 02:56
eGFR > 60.00 07/20/25 02:56
Glucose 176 mg/dl (70-99) H 07/20/25 02:56
Calcium 8.7 mg/dl (8.4-10.2) 07/20/25 02:56
Bsl-L-Fugkdprbdpj Pept 273 pg/ml 07/18/25 01:37
Albumin 4.0 g/dl (3.5-5.0) 07/19/25 03:49
Physical Exam
-
Vital Signs:
Vital Signs
Temp Pulse Resp BP Pulse Ox
98.0 F 86 18 110/51 94
07/20/25 07:28 07/20/25 06:00 07/20/25 07:28 07/20/25 04:22 07/20/25 07:28
Cardiovascular:: Irregular rate and rhythm
Respiratory:: Bilateral: CTA
Lung Excursion:: Normal
Abdomen:: Nontender and Soft
Bowel Sounds:: Normal
Extremity Edema:: None: Bilateral:
Aponte Catheter: No
--- NOTE | 2025-07-20 10:30 | CM ---
Reviewed chart. Met [facility] and Mrs. Blount to review discharge plans. He states he is feeling better and maybe able to go home soon. Prior to admission he resides with his spouse in a two story home with two steps to enter. His main bedroom suite
is on the first floor. Prior to admission he was independent with ambulation and adls. He has home 02 at home. He wears his home 02 all the time. He uses 02 at 2 liters during the day and 6 liters during the night time. [facility] services his home
02. He has portable and concentrator at home. He has a prescription plan and uses [facility]. Medical work-up in progress. The discharge plan is to return home with his spouse when medically stable.
--- NOTE | 2025-07-20 10:57 | W.PN.CD ---
Today's Communication / Plan
-
OK with home
Increase Coreg dose given his PAF with RVR
I encouraged cardiac rehab
Will add MRA as outpatient
Impression / Plan
-
55 y/o male with PMH sig for CAD, s/p CABG (2018), recent [place] with PCI to vein graft-RCA (02/2025)- both in [place], [place]; typical atrial flutter s/p ablation 06/17/25, HTN, hyperlipidemia, DM, morbid obesity is admitted with NSTEMI.
NSTEMI/CAD/remote CABG/prior PCI to a SVG (02/2025)
- New PCI yesterday to a eek OM2
- Aggressive secondary prevention
New PAF with RVR, 2 episodes in last 24 hours
- Known flutter ablation 06/17/2025
- Reviewed AFib, and risk factors
- Already on Eliquis
- BB dose increased
- Option for PVI reviewed, prefer 50 pound weight loss first
HFimpLVEF
- LVEDP 25 noted
- Continue med rx GDMT with carvedilol 25=> 37.5mg bid, lisinopril 20mg daily, SGLT2i, Bumex 2mg bid
- Will add MRA as outpatient
Hyperlipidemia
-cont rosuvastatin 40mg daily
-check lipids
HTN
Morbid Obesity
DM
h/o severe hyperkalemia in setting of septic shock requiring HD 09/2024
Subjective: No CP. No cath complications
Data:
Echo 07/19/2025: Unremarkable.
Cath/PCI 07/19/2025:
CONCLUSIONS
1. Right dominant circulation with a chronic total occlusion of the proximal RCA, and 80% lesion in the mid LAD, a 40% lesion in the distal LAD and a 70% lesion in the proximal portion of OM 2 status post prior bypass (KELLY to LAD, SVG to RPDA and
SVG to OM 2) with patent stents in the SVG to RPDA, a 50% lesion in the proximal RPDA graft in between 2 stented segments and a 90% lesion in the mid OM2, immediately after the vein graft anastomosis, status post successful PCI through the SVG
(Xience Skypoint 2.25 x 12 ANA, postdilated with a 2.25 NC balloon) with reduction in stenosis to 0%, maintaining JOSE-3 flow.
2. Severely elevated filling pressures (LVEDP = 25 mmHg at 149.2 kg).
Physical Exam
Vital Signs/Labs
Vital Signs
Temp Pulse Resp BP Pulse Ox
98.0 F 86 18 110/51 94
07/20/25 07:28 07/20/25 06:00 07/20/25 07:28 07/20/25 04:22 07/20/25 07:28
07/19/25 07/20/25 07/21/25
06:59 06:59 06:59
Actual Weight 149.2 kg 149.4 kg
07/20/25 02:56
07/20/25 02:56
APTT Cancelled 07/19/25 10:55
Magnesium 2.1 mg/dl (1.6-2.3) 07/20/25 02:56
Triglycerides 1293 mg/dl (10-149) H 07/19/25 03:49
LDL Cholesterol, Calc -54 mg/dl 07/19/25 03:49
VLDL Cholesterol, Calc 258 mg/dl (0-30) H 07/19/25 03:49
HDL Cholesterol 21 mg/dl 07/19/25 03:49
07/18/25
01:37
Ntw-J-Gonimmqknaq Pept 273
LAB Results
07/18/25 07/18/25 07/18/25
01:37 03:27 08:30
Troponin I 0.019 0.069 H* D 0.388 H* D
07/18/25 07/18/25 07/18/25
09:00 13:33 14:22
Troponin I Cancelled 0.494 H* D 0.516 H*
07/18/25 07/18/25
20:01 21:09
Troponin I Cancelled 0.298 H* D
Physical Exam
Constitutional: No acute distress
EENT: Anicteric
Cardiovascular: Rhythm & rate is regular and Pedal edema is absent
Respiratory: Respiratory effort normal and Lungs clear to auscul.
GI: Soft and Distention absent
Neuro/Psych: AO x 3
Data Reviewed
-
Date of Service: July 20, 2025
[2025-07-20 12:05] LABS: Glucose - Point of Care 197 mg/dl (70-99)
--- NOTE | 2025-07-20 13:53 | W.PN.HOSP.TC ---
Today's Communication/Plan
-
Discharge home today
Assessment / Plan
Assessment / Plan
Impression:
patient is a 55y M with PMH significant for ASCVD, hypertension and DM-II who presents to ED complaining of chest pain. Patient noted to have elevated troponin.
Seen by cardiology and plan was for cardiac cath, status post stent
Developed A-fib overnight and cardiology commending to increase carvedilol to 37.5 mg twice daily.
Will be discharged on Eliquis/Plavix/increased dose of carvedilol
Assessment/plan:
Non-STEMI
ASCVD
- Current chest pain is identical to prior presentation for NSTEMI / ACS.
- Contiue IV heparin
- Continue efforts at pain control - having intermittent pain in the ED.
- NTG gtt and titrate as needed. Morphine / Dilaudid PRN.
- ASA daily. Continue statin.
- Troponin peaked.
07/19
Patient underwent cardiac cath :
Status post successful PCI to the mid OM2 through SVG.
Cardiology recommendations after cardiac cath:
1. Expectant management after cardiac catheterization via right common femoral approach.
2. Limited weight bearing for one week.
3. Resume antiplatelet/anticoagulation therapy with clopidogrel and apixaban. Apixaban may begin this evening. Continue clopidogrel for at least 12 months.
4. OMT/GDMT as hemodynamics will tolerate.
5. Aggressive secondary prevention with high-dose, high potency statin, ezetimibe, GLP-1 agonist and fenofibrate.
6. Echocardiogram ordered and pending.
7. Referral to cardiac rehab.
Atrial flutter
- Patient briefly in rapid SVT on monitor in ED - has maintained NSR since that time.
- ? recurrent A-Flutter s/p RFA ablation last month.
- Monitor on telemetry.
- Cardiology eval as noted above.
07/20
2 episodes with atrial flutter overnight.
Cardiology increased carvedilol
Hypercholesterolemia/hypertriglyceridemia
Fasting lipid profile shows triglyceride 1293.
Total cholesterol 225
LDL calculated less than 30.
VLDL 258.
HDL 21
Chronic HFmrEF
- Stable Mild pedal edema in the past 24 hours per patient.
- Continue usual dose of bumetanide for now.
- IV dose PRN for signs / symptoms of volume overload.
Benign Hypertension
- Continue med regimen and adjust as needed for adequate control.
DM-II
- On very high dose insulin regimen.
- Continue basal insulin at decreased dose for now / while NPO.
- Follow glucose and cover with SSI as needed.
- Hemoglobin A1C 7.5
Anemia of Chronic Disease
- Hgb is at / near previously noted baseline.
- ? etiology of anemia.
- Check iron studies, B12, etc.
Chronic Hypoxemic Respiratory Failure
ARUN not on CPAP
- Secondary to morbid obesity / OHV +/- COPD.
- Continue usual supplemental O2.
- Patient needs to complete PSG / CPAP set up process as an outpatient.
Morbid Obesity due to excess calories
- Affects all aspects of care.
- Encourage efforts at weight loss including health diet, increased exercise, etc.
CODE STATUS: Full code
DVT prophylaxis: Start Eliquis tonigh
Diet: DM diet
Family communication: Discussed with at bedside
Disposition: Discharge home today
Total time spent on today's encounter was 55 minutes which included time spent in counseling the patient/family regarding diagnosis and treatment plan as listed above, goals of care, and symptom management. Case was discussed with nursing staff,
specialists, and care coordinators/case management. All labs and imaging personally reviewed by me. Remainder the time spent in detailed review of previous records, lab data, imaging, and other medical provider documentation.
Anticipated Discharge: Today
Subjective/Interval History
-
Date of Service: July 20, 2025
Patient seen and examined at bedside, denies any chest pain or shortness of breath, no abdominal pain, no nausea, no vomiting, no diarrhea or constipation.
Objective Data
-
Labs:
Laboratory Results
07/20/25
02:56
WBC 7.3
Hgb 8.8 L
Hct 31.9 L
Plt Count 248
Sodium 137
Potassium 4.3
Chloride 94 L
Carbon Dioxide 34 H
BUN 23 H
Creatinine 1.0
Glucose 176 H
Calcium 8.7
Vital Signs:
Vital Signs
Temp Pulse Resp BP Pulse Ox
98.1 F 93 20 110/68 94
07/20/25 11:25 07/20/25 12:00 07/20/25 11:25 07/20/25 11:25 07/20/25 11:25
I&O
07/19/25 07/20/25 07/21/25
06:59 06:59 06:59
Intake Total 480 / 480 2220 / 2220
Output Total 3050 / 3050 4050 / 4050
Balance -2570 / -2570 -1830 / -1830
Physical Exam
-
General: Well Developed, Well Nourished, No Apparent Distress and Comfortable
HEENT: Normocephalic, Atraumatic, Moist Mucous Membranes, No Ptosis, PERRLA and Nose Appears Normal
Respiratory: Clear to Auscultation and Non Labored Respirations
Cardiac: Regular Rhythm and S1/S2
Breast: Deferred by me
GI: Soft, Nontender, Nondistended and Normal Bowel Sounds
Genito-urinary: No Costovertebral Tender
Musculoskeletal: No Clubbing, No Cyanosis and No Edema
Skin: Warm
Neuro: Awake, Alert, Oriented, AO x 3 and No Motor Deficits
Psych: Calm
--- NOTE | 2025-07-20 13:58 | W.DCSUMMARY ---
Discharge Summary
Discharge Data
Date of Admission: 07/18/25
Date of Discharge: 07/20/25
Total time spent discharging patient (in min): 40
-
Pending Results: No
Hospital Course
Hospital course
patient is a 55y M with PMH significant for ASCVD, hypertension and DM-II who presents to ED complaining of chest pain. Patient noted to have elevated troponin.
Seen by cardiology and plan was for cardiac cath, status post stent
Developed A-fib overnight and cardiology commending to increase carvedilol to 37.5 mg twice daily.
Will be discharged on Eliquis/Plavix/increased dose of carvedilol
During hospitalization patient was treated from the following
Non-STEMI
ASCVD
- Current chest pain is identical to prior presentation for NSTEMI / ACS.
- Contiue IV heparin
- Continue efforts at pain control - having intermittent pain in the ED.
- NTG gtt and titrate as needed. Morphine / Dilaudid PRN.
- ASA daily. Continue statin.
- Troponin peaked.
07/19
Patient underwent cardiac cath :
Status post successful PCI to the mid OM2 through SVG.
Cardiology recommendations after cardiac cath:
1. Expectant management after cardiac catheterization via right common femoral approach.
2. Limited weight bearing for one week.
3. Resume antiplatelet/anticoagulation therapy with clopidogrel and apixaban. Apixaban may begin this evening. Continue clopidogrel for at least 12 months.
4. OMT/GDMT as hemodynamics will tolerate.
5. Aggressive secondary prevention with high-dose, high potency statin, ezetimibe, GLP-1 agonist and fenofibrate.
6. Echocardiogram ordered and pending.
7. Referral to cardiac rehab.
Atrial flutter
- Patient briefly in rapid SVT on monitor in ED - has maintained NSR since that time.
- ? recurrent A-Flutter s/p RFA ablation last month.
- Monitor on telemetry.
- Cardiology eval as noted above.
07/20
2 episodes with atrial flutter overnight.
Cardiology increased carvedilol
Hypercholesterolemia/hypertriglyceridemia
Fasting lipid profile shows triglyceride 1293.
Total cholesterol 225
LDL calculated less than 30.
VLDL 258.
HDL 21
Chronic HFmrEF
- Stable Mild pedal edema in the past 24 hours per patient.
- Continue usual dose of bumetanide for now.
- IV dose PRN for signs / symptoms of volume overload.
Benign Hypertension
- Continue med regimen and adjust as needed for adequate control.
DM-II
- On very high dose insulin regimen.
- Continue basal insulin at decreased dose for now / while NPO.
- Follow glucose and cover with SSI as needed.
- Hemoglobin A1C 7.5
Anemia of Chronic Disease
- Hgb is at / near previously noted baseline.
- ? etiology of anemia.
- Check iron studies, B12, etc.
Chronic Hypoxemic Respiratory Failure
ARUN not on CPAP
- Secondary to morbid obesity / OHV +/- COPD.
- Continue usual supplemental O2.
- Patient needs to complete PSG / CPAP set up process as an outpatient.
Morbid Obesity due to excess calories
- Affects all aspects of care.
- Encourage efforts at weight loss including health diet, increased exercise, etc.
CODE STATUS: Full code
DVT prophylaxis: Start Eliquis tonigh
Diet: DM diet
Family communication: Discussed with at bedside
Disposition: Discharge home today
Total time spent on today's encounter was 40 minutes which included time spent in counseling the patient/family regarding diagnosis and treatment plan as listed above, goals of care, and symptom management. Case was discussed with nursing staff,
specialists, and care coordinators/case management. All labs and imaging personally reviewed by me. Remainder the time spent in detailed review of previous records, lab data, imaging, and other medical provider documentation.
Anticipated Discharge: Today
Discharge Plan
-
Patient Disposition: Home (Routine Discharge)
Discharge Diagnosis/Procedures: NSTEMI, s/p angioplasty and stent to vein graft-Obtuse Marginal artery
Atrial flutter
Hypercholesterolemia/hypertriglyceridemia
Diabetes
Diet: Low Residue and Diabetic, Carb Controlled
Driving Restrictions: No driving for 24 hours
Other Services: Cardiac Rehab
Instructions: Atrial Fibrillation (DC), Diabetes and diet, DASH diet, Diabetes and heart disease
Stand Alone Forms: DC Instructions- Cath/EP Lab
Referrals:
Nikki Anand CRNP [Specified Professional Personl, Cardiology] - 08/16/25 1:40 pm
Kevin Woo DO [Active, Nephrology] - in three to four weeks
Marija Neville CRNP [Family Provider, Family Practice]
Prescriptions:
New
(DME) Classic Oxygen Concentrator device
See Rx Instructions .Route .MEDSUPPLY Qty: 1 0RF
Rx Instructions:
Diagnosis : COPD ICD 10: J44.9
nitroglycerin 0.4 mg Tablet, Sublingual
0.4 mg sublingual [id number] PRN (Reason: Chest Pain) Qty: 100 0RF
(DME) Basal Metabolic Panel
See Rx Instructions .Route .MEDSUPPLY Qty: 1 0RF
Rx Instructions:
please fax result to Dr. Kevin Woo DO,
Continued
gabapentin 600 mg Tablet
600 mg PO TID
bumetanide 2 mg Tablet
2 mg PO BID
prazosin 1 mg Capsule
1 mg PO HS
amlodipine 2.5 mg Tablet
2.5 mg PO DAILY
clopidogrel 75 mg Tablet
75 mg PO DAILY
valproic acid 250 mg Capsule
500 mg PO BID
amitriptyline 25 mg Tablet
25 mg PO HS
omeprazole 20 mg Capsule,Delayed Release(Dr/Ec)
20 mg PO BID
alprazolam 2 mg Tablet
2 mg PO BID PRN (Reason: anxiety)
ezetimibe 10 mg Tablet
10 mg PO HS
insulin aspart U-100 [Novolog FlexPen U-100 Insulin] 100 unit/mL (3 mL) Insulin Pen
40 unit SC TIDWMEAL
rosuvastatin 40 mg Tablet
40 mg PO HS
fenofibrate nanocrystallized 145 mg Tablet
145 mg PO DAILY
Eliquis 5 mg Tablet
5 mg PO BID
Jardiance 10 mg Tablet
10 mg PO DAILY
insulin glargine U-300 conc [Toujeo SoloStar U-300 Insulin] 300 unit/mL (1.5 mL) Insulin Pen
78 unit SC BID
Mounjaro 2.5 mg/0.5 mL Pen Injector
2.5 mg SC QWEEK
Rx Instructions:
for 4 weeks
fluoxetine 60 mg Tablet
60 mg PO DAILY
insulin aspart U-100 100 unit/mL Cartridge
1 sliding scale dose SC DIRECTED
Rx Instructions:
high resistence sliding scale
lisinopril 20 mg Tablet
20 mg PO DAILY Qty: 0 0RF
Rx Instructions:
Hold for SBP<90
Changed
carvedilol 25 mg Tablet
37.5 mg PO BID 30 Days Qty: 90 0RF
Rx Instructions:
Hold for SBP<90 or HR<60
Discharge Orders:
Discharge Patient (As Directed); Ordered 07/20/25
Ordered By: Supriya Murphy
Care Plan Goals
Care Plan Goals:
Problem: Readiness for enhanced knowledge related to diagnosis and treatment plan
Goal: Understand your diagnosis and treatment plan needs, including medications if applicable.
Instructions: Know your diagnosis, underlying causes and treatment plan options, including medications if applicable. Consult with your health care team to learn about your diagnosis and treatment plan, including medications if applicable.
Discharge Date and Time
Discharge Date/Time: 07/20/25 12:56
Print Language: ALBANIAN
== END 2025-07-20 12:56 | disposition home or self-care (01) | DRG 322 ==
LOC: IVU 06:54
PROVIDERS: Internal Medicine; Internal Medicine Cardiovascular Disease; Nurse Practitioner; ADMITTING PHYSICIAN Hospitalist; ATTENDING PHYSICIAN General Practice; CONSULT PHYSICIAN Internal Medicine; CONSULT PHYSICIAN Specialist; EMERGENCY PHYSICIAN Student in an Organized Health Care Education/Training Program; FAMILY PHYSICIAN Nurse Practitioner Family
PROC: 4A023N7 Measurement of Cardiac Sampling and Pressure, Left Heart, Percutaneous Approach (ICD-10-PCS; 2025-07-19)
PROC: B2111ZZ Fluoroscopy of Multiple Coronary Arteries using Low Osmolar Contrast (ICD-10-PCS; 2025-07-19)
PROC: B2131ZZ Fluoroscopy of Multiple Coronary Artery Bypass Grafts using Low Osmolar Contrast (ICD-10-PCS; 2025-07-19)
PROC: 027034Z Dilation of Coronary Artery, One Artery with Drug-eluting Intraluminal Device, Percutaneous Approach (ICD-10-PCS; 2025-07-19)
PROC: 5A09357 Assistance with Respiratory Ventilation, Less than 24 Consecutive Hours, Continuous Positive Airway Pressure (ICD-10-PCS; 2025-07-20)
DX: I21.4 Non-ST elevation (NSTEMI) myocardial infarction (principal); E66.2 Morbid (severe) obesity with alveolar hypoventilation; I47.10 Supraventricular tachycardia, unspecified; I48.3 Typical atrial flutter; Z68.41 Body mass index [BMI] 40.0-44.9, adult; J96.11 Chronic respiratory failure with hypoxia; I50.32 Chronic diastolic (congestive) heart failure; I25.810 Atherosclerosis of coronary artery bypass graft(s) without angina pectoris; J44.9 Chronic obstructive pulmonary disease, unspecified; I48.0 Paroxysmal atrial fibrillation; G47.00 Insomnia, unspecified; I25.10 Atherosclerotic heart disease of native coronary artery without angina pectoris; D63.8 Anemia in other chronic diseases classified elsewhere; E78.1 Pure hyperglyceridemia; I25.5 Ischemic cardiomyopathy; I11.0 Hypertensive heart disease with heart failure; E78.00 Pure hypercholesterolemia, unspecified; E11.21 Type 2 diabetes mellitus with diabetic nephropathy; F43.10 Post-traumatic stress disorder, unspecified; Z79.82 Long term (current) use of aspirin; Z79.899 Other long term (current) drug therapy; Z79.84 Long term (current) use of oral hypoglycemic drugs; Z79.4 Long term (current) use of insulin; Z95.1 Presence of aortocoronary bypass graft; Z95.5 Presence of coronary angioplasty implant and graft; Z87.891 Personal history of nicotine dependence; Z82.49 Family history of ischemic heart disease and other diseases of the circulatory system; Z83.3 Family history of diabetes mellitus; Z88.5 Allergy status to narcotic agent; I25.2 Old myocardial infarction; Z79.01 Long term (current) use of anticoagulants; Z79.02 Long term (current) use of antithrombotics/antiplatelets; Z79.85 Long-term (current) use of injectable non-insulin antidiabetic drugs
CPT/HCPCS: 71046; 80048; 80053; 80061; 81003; 81015; 82570; 82607; 82728; 82962; 83036; 83540; 83550; 83721; 83735; 83880; 84156; 84484; 85025; 85027; 85347; 85379; 85730; 93005; 93306; 93459; 96361; 96374; 96375; 99152; 99153; 99285; C1725; C1874; C1887; C1894; C9604; Q9967

== ENCOUNTER → 2025-08-16 14:54 | Outpatient (REF) | payer OTHER, SELFPAY ==
[2025-08-16 15:35] LABS: Blood Urea Nitrogen 36 mg/dl (9-20); Calcium 8.9 mg/dl (8.4-10.2); Carbon Dioxide 33 mmol/L (22-30); Chloride 90 mmol/L (98-107); Glucose 202 mg/dl (70-99); Potassium 5.1 mmol/L (3.5-5.1); Sodium 133 mmol/L (135-145); eGFR > 60.00
[2025-08-16 16:18] LABS: Hematocrit 34.2 % (39.0-52.0); Hemoglobin 10.0 g/dL (13.0-18.0); Mean Corp Hgb Conc. 29.2 g/dL (33.0-37.0); Mean Corpuscular Volume 79.9 fL (80.0-94.0); Nucleated Red Blood Cells % 0.4 % (-); Platelet Count 327 10^3/uL (130-400); Red Cell Dist. Width 18.5 % (11.5-14.5)
== END ==
LOC: REG 14:54
PROVIDERS: ATTENDING PHYSICIAN Nurse Practitioner; FAMILY PHYSICIAN Nurse Practitioner Family
DX: I25.118 Atherosclerotic heart disease of native coronary artery with other forms of angina pectoris (principal); R42 Dizziness and giddiness
CPT/HCPCS: 36415; 80048; 85025

== ENCOUNTER 2025-09-04 03:42 | Inpatient (IN) | payer OTHER, SELFPAY ==
[2025-09-04] VITALS (32 sets, daily range): BP systolic 81–158; BP diastolic 32–86; PULSE 2–90; BMI 45.1
[2025-09-04 00:41] LABS: Hematocrit 33.7 % (39.0-52.0); Hemoglobin 10.5 g/dL (13.0-18.0); Mean Corp Hgb Conc. 31.2 g/dL (33.0-37.0); Mean Corpuscular Volume 78.7 fL (80.0-94.0); Nucleated Red Blood Cells % 0.2 % (-); Platelet Count 371 10^3/uL (130-400); Red Cell Dist. Width 17.4 % (11.5-14.5)
[2025-09-04 00:49] LABS: ALT (SGPT) 25 U/L (0-50); AST (SGOT) 35 U/L (17-59); Albumin 3.9 g/dl (3.5-5.0); Alkaline Phosphatase 118 U/L (38-126); Blood Urea Nitrogen 35 mg/dl (9-20); Calcium 8.3 mg/dl (8.4-10.2); Carbon Dioxide 33 mmol/L (22-30); Chloride 90 mmol/L (98-107); Estimated Creatinine Clearance 83 ml/min; Glucose 280 mg/dl (70-99); Potassium 5.0 mmol/L (3.5-5.1); Sodium 129 mmol/L (135-145); Total Protein 7.6 g/dl (6.3-8.2); eGFR 53.96
[2025-09-04 01:06] LABS: Troponin I 0.066 ng/ml
--- NOTE | 2025-09-04 01:46 | ED.GENMED ---
History of Present Illness
General
Chief Complaint: Chest Pain
Source: patient and spouse
Exam Limitations: none
Time Seen by Provider: 09/04/25 00:41
Nursing documentation reviewed up to this point in time: agreed with
History of Present Illness
History of Present Illness:
Patient with history of CAD, status post cardiac stent placement in June 2025, atrial fibrillation on Eliquis, presents to ED secondary to recurrent chest pain, shortly after he laid down to go to sleep this evening. Chest pain described as
middle of chest, nonradiating, associated with nausea sensation, as well as palpitations. Patient's spouse, who is a nurse, checked his heart rate, and it was noted to be greater than 170 bpm. Since arrival in ED, patient reports gradual
improvement in symptoms. Patient states that his chest pain is similar to what he experienced back in June. Denies back pain. Denies leg pain or swelling. Denies trauma. Denies recent illness. Denies loss of appetite.
Review of Systems
Review of Systems
Allergies reviewed?: Yes
All Other Systems: ROS reviewed and negative except as documented in HPI and ROS
Constitutional: Reports no symptoms
EENT: Reports no symptoms
Respiratory: Reports no symptoms; Denies trouble breathing
Cardiac: Reports chest pain and palpitations; Denies diaphoresis
ABD/GI: Reports nausea
Musculoskeletal: Reports no symptoms
Skin: Reports no symptoms
Neurological: Reports no symptoms
Phy Exam
Physical Exam
Physical Exam:
Physical Exam
General: no apparent distress, not acutely ill. afebrile. overweight
Head: nc/at. eomi
Neck: supple. no meningeal signs.
Heart: s1/s2 regular rate and rhythm
Lungs: no acute respiratory distress. clear bilaterally. chest wall nontender to palpation
Abdomen: normal bowel sounds. not tender.
Neuro: alert and oriented x 3. no focal neurological deficits
Skin: no rash
Psychiatric: well kept. interactive and cooperative
Extremities: no edema. no calf tenderness.
Scores
Heart Score for Chest Pain Patients
STEMI patient?: No
History: Moderately Suspicious
ECG: Normal
Age: >/= 65 years
Risk Factors: >/= 3 Risk Factors or History of CAD
Troponin: >1 - <3 x Normal Limit
Heart Score for Chest Pain Patients: 6
Heart Score Risk: 20.3% MACE over next 6 weeks
Course
Orders/Labs/Results
Orders:
Orders
09/04/25 00:02
Electrocardiogram (*1) Urgent
Reason for Study: Chest Pain
EKG- Treatment ONCE
09/04/25 00:12
Complete Blood Count/With Diff Urgent
Comprehensive Metabolic Panel Urgent
Pro-BNP [NT-proBNP] Urgent
Troponin I Urgent
09/04/25 01:54
Troponin I Urgent
09/04/25 03:28
Admit/Transfer Patient As Directed
Co-Sign Provider:
Level of Care: Inpatient admission
Assign to:: Telemetry
Physician / Group: Malvin
Diagnosis: chest pain
Reason for Telemetry: Chest Pain syndromes
Date to Stop Telemetry: 09/06/25
Time to Stop Telemetry: 11:00
Reason for Hospitalization: NSTEMI
Expected length of stay greater than two midnights?: Yes
ELOS- Estimated Length of Stay in days: 2
I certify the patient meets the requirements for IP care: Yes
PRN Pain Medication Management As Directed
May give lesser potent ordered pain med per pt: Yes
preference::
Protocol:: Medication orders for pain may be administered in a
manner that supports deferring to patient preference
when the pt is:
- Requesting an ordered lesser potent pain medication.
Least to most potent pain medications are defined
as: acetaminophen < NSAID < tramadol < opioids
(morphine, oxycodone, hydromorphone).
- Requesting a lesser dose of the same medication IF
ORDERED.
- Requesting a less intrusive route of administration
if both routes are prescribed by the provider (PO <
IV).
09/04/25 03:31
Code Status As Directed
Resuscitation Status: Full Code
09/04/25 05:16
Dextrose 50%-Water [Dextrose 50% Syringe] 12.5 grams IV [id number] PRN
Glucagon [GlucaGen] 1 mg IM PRN PRN
Nitroglycerin Sublingual [Nitrostat (Sublingual)] 0.4 mg SL [id number] PRN Chest Pain
09/04/25 05:16
CARDIOLOGY CONSULT Routine
Consulting Provider: Demarcus Delarosa
Was physician already notified: Yes
HF DIETARY CONSULT Routine
HF EDUCATOR CONSULT Routine
Comment:
VTE Contraindication Routine
VTE Mechanical Device Contraindication: Medical Contraindication
Pharmocologic Contraindication: Medical Contraindication
Activity As Directed
Activity Level: With Assistance
Bedside Glucose Monitoring As Directed
Frequency: AC&HS
Additional Instructions:: Change to q6h if pt on TPN, tube feeding or not eating
Intake/ Output As Directed
Frequency: Per unit guidelines
Orthostatic Vital Signs As Directed
Orthostatic VS Frequency: Daily
Patient Education As Directed
Type: CHF folder
Comment: give on admission. Document in Interdisciplinary Education record
Sleep Apnea Assessment by RN As Directed
Comment:
Physician Instructions:
Vital Signs As Directed
Frequency: Other
Additional Instructions:: Q12 or per unit guidelines if more frequent.
Weight As Directed
Frequency: Daily
Type of Scale: Standing Scale
Comment: Daily morning weight. If unable to stand, use balanced bed scale.
Weight As Directed
Frequency: Once
Type of Scale: Standing Scale
Comment: Upon Admission. If unable to stand, use balanced bed scale.
Pulse Ox/cont/shift [RESP] Routine
Quantity: 1
Special Instructions: Daily pulse oximetry at rest. If greater than 92% at rest also obtain pulse oximetry
while ambulating as tolerated.
09/04/25 05:29
Alprazolam [Xanax] 2 mg PO BID PRN
09/04/25 Breakfast
1800 calorie (15 carb) Diabetic
At Your Request: Full Participation
Fluid Restriction: 1200 mL/day (40 oz)
Diabetic Diet: Sodium, 2 Gram
09/04/25 07:30
Insulin Aspart High Resistance [Novolog Flexpen-High Resistance] See Protocol SC AC
Insulin Aspart Pen [Novolog Flexpen] 30 units SC AC
09/04/25 08:00
Apixaban [Eliquis] 5 mg PO BID
Bumetanide [Bumex] 2 mg PO BID
Carvedilol [Coreg] 37.5 mg PO BID
Clopidogrel Bisulfate [Plavix] 75 mg PO DAILY
Dapagliflozin [Farxiga] 10 mg PO DAILY
Fenofibrate 145 [Tricor] 145 mg PO DAILY
Gabapentin [Neurontin] 600 mg PO TID
Insulin Glargine Lantus [Lantus] 60 units Subcutaneous Insulin Syringe [Syringe-Insulin] 0 unit SC DAILY
Lisinopril [Zestril] 20 mg PO DAILY
Pantoprazole [Protonix] 40 mg PO BID
Valproic Acid [Depakene] 500 mg PO BID
09/04/25 09:19
Basic Metabolic Panel IN AM
Glycohemoglobin (HgbA1c) IN AM
Magnesium IN AM
Troponin I Q6H
Comment: at admission & every 6 hours x 2 (3 total), ECG to be done with each level
09/04/25 12:52
Troponin I Q6H
Comment: at admission & every 6 hours x 2 (3 total), ECG to be done with each level
09/04/25 18:29
Osmolality, Random Urine Routine
Date Specimen was Collected: 09/04/25
Time Specimen was Collected: 18:24
09/04/25 22:00
Amitriptyline [Elavil] 25 mg PO HS
Ezetimibe [Zetia] 10 mg PO HS
Insulin Glargine Lantus [Lantus] 60 units Subcutaneous Insulin Syringe [Syringe-Insulin] 0 unit SC HS
Rosuvastatin Calcium [Crestor] 40 mg PO HS
Oxygen Therapy [O2 Therapy] [RESP] HS
Nasal Cannula Liter Flow: 2 LPM
Titrate/Wean O2 to maintain O2 sat greater than (%): 93
09/05/25 06:00
Basic Metabolic Panel IN AM
09/06/25 06:00
Basic Metabolic Panel IN AM
09/06/25 11:00
DC Protocol for Telemetry ONCE
Abnormal Lab Results
09/04/25 09/04/25
00:12 01:54
RBC 4.28 L 10^6/uL
(4.70-6.10)
Hgb 10.5 L g/dL
(13.0-18.0)
Hct 33.7 L %
(39.0-52.0)
MCV 78.7 L fL
(80.0-94.0)
MCH 24.5 L pg
(27.0-31.0)
MCHC 31.2 L g/dL
(33.0-37.0)
RDW 17.4 H %
(11.5-14.5)
Abs Immat Gran (auto) 0.4 H 10^3/uL
(0-0.05)
Absolute Neuts (auto) 6.7 H 10^3/uL
(1.4-6.5)
Absolute Monos (auto) 1.0 H 10^3/uL
(0.1-0.6)
Immature Gran % 3.5 H %
(0-0.5)
Lymphocytes % 19.8 L %
(20.5-51.1)
Sodium 129 L mmol/L
(135-145)
Chloride 90 L mmol/L
(98-107)
Carbon Dioxide 33 H mmol/L
(22-30)
BUN 35 H mg/dl
(9-20)
Creatinine 1.5 H mg/dL
(0.7-1.3)
Glucose 280 H mg/dl
(70-99)
Calcium 8.3 L mg/dl
(8.4-10.2)
Troponin I 0.066 H* ng/ml 0.276 H* D ng/ml
09/04/25 00:12
09/04/25 00:12
Vital Signs
Initial and Last Documented VS:
Initial Vital Signs
Pulse Resp Pulse Ox
102 22 86
09/04/25 00:03 09/04/25 00:03 09/04/25 00:03
Last Documented Vital Signs
Temp Pulse Resp BP Pulse Ox
98.8 F 96 20 112/73 94
09/04/25 15:13 09/04/25 18:30 09/04/25 18:30 09/04/25 18:02 09/04/25 17:30
MDM/Problems Addressed
MDM/Problems Addressed:
Patient remained chest pain-free during observation. Repeat troponin with significant elevation in troponin, compared to first troponin. History and exam concerning for unstable angina vs NSTEMI.
Discussed with on-call cardiology, , who does not recommend heparin protocol at this time.
*Pulse Oximetry
SaO2: 100
Nasal Cannula flow liters per minute: 6
Oxygen Mode of Delivery: Room air
Patient hypoxic: yes
*EKG
Interpreted by ED Provider?: Yes
EKG Intrepretation Date: 09/04/25
Heart Rate: 99
Rate: normal
Rhythm: sinus
[place]: normal axis
Interval: normal interval
*Critical Care Note
Total Time (30-74mins, 75-104mins- exclusive of procedures): 30 min
ED Attending Note
-
Portions of this chart may have been created with voice recognition software.� Occasional wrong word or��sound alike� substitutions may have occurred due to the inherent limitations of voice recognition software.
Discharge Plan
Departure
Patient Disposition: Admit
Date of Disposition: 09/04/25
Time of Disposition: 02:50
Admit to: Telemetry
Presentation/result/management discussed w/ accepting MD/DO: Hospitalist
Discharge Problem:
Non-ST elevation MT (NSTEMI)
Interventions
Interventions:
*Risk Screen - Suicide Last Done: 09/04/25 05:58
*General Assessment Last Done: 09/04/25 00:04
*Neglect/Abuse Screening Last Done: 09/04/25 00:04
*ED COVID-19 Vaccine History Last Done: 09/04/25 00:04
*ED Influenza Vaccine History Last Done: 09/04/25 00:04
[facility] Fall Risk Assessment Tool Last Done: 09/04/25 00:09
*Nursing Disposition Last Done: 09/04/25 05:07
ED- Cardiac Assessment Last Done: 09/04/25 00:21
Discharge Date and Time
Discharge Date/Time: 09/04/25 05:07
[2025-09-04 02:38] LABS: Troponin I 0.276 ng/ml
--- NOTE | 2025-09-04 03:16 | HPS.HSE ---
Family Physician
-
Family Physician: JEAN CLAUDE Elam
Chief Complaint
-
Chest pain
History of Present Illness
Patient is a 55-year-old who has past medical history significant for CAD who was recently status post PCI to the mid OM 2 to SVG, status post CABG, proximal atrial fibrillation on anticoagulation, insulin-dependent diabetes, ARUN not on CPAP,
hypertension, CHF with minimally reduced EF presents to the emergency department with chest pain.
As stated patient was hospitalized in June with NSTEMI in the setting of chest pain. He had successful PCI to the mid OM 2 to SVG at that time and improvement in his symptoms. He was resumed on his antiplatelet and anticoagulation therapy with
Plavix and apixaban.
Today he reported onset of chest discomfort shortly after he laid down to sleep, he woke up from sleep and he reports a midsternal nonradiating sensation with nausea as well as palpitations. A measurement of his heart rate at that time showed it to
be irregular and greater than 170. Possible that he had rate was going between 80s to 160s and 170s and correlated with his chest pain. Patient felt his chest discomfort was secondary to his tachycardia.
Here he appears somewhat comfortable although still saying that his pain is around a 6.
On arrival in the emergency department he was no longer tachycardic, blood pressure was 107/69 with pulse of 94 and he was satting 98% on room air. His ECG shows a normal sinus rhythm at a rate of [address] or T wave changes. His troponin is
bumped again to 0.06 then to 0.276. CBC was unremarkable. Sodium is down to 129 from a prior of 133. Potassium is 5.0, bicarb 33, BUN/creatinine are stable at 35 and 1.5 with a glucose of 280.
Medical History
Past Medical History
Past Medical History: Reports Other
Additional Past Medical History:
ASCVD
Hypertension
Atrial Flutter
HFmrEF
DM-II
Chronic Anemia
Morbid Obesity
ARUN not currently on PAP therapy
Chronic Hypoxemic Respiratory Failure
Past Surgical History: Reports Other
Additional Past Surgical History:
CABG x 3
PTCA with Stents (x 4) - February 2025
RFA Ablation (06/17/2025)
Social History
Tobacco: Former Smoker (Quit smoking in September)
Alcohol: Occasional
Personal:
Living: With Family
Family History
Family History: Other (Strong family history of CAD, DM.)
Allergies / Home Medications
Allergies reflects when Allergies were last updated in [employer].
Home Medications with original date entered in [employer]
Allergy/Medication List:
Allergies
Allergy/AdvReac Type Severity Reaction Status Date / Time
morphine AdvReac Unknown causes Verified 09/04/25 00:48
'PTSD'
Home Medications
alprazolam 2 mg tablet 2 mg PO BID PRN anxiety 06/17/25
amitriptyline 25 mg tablet 25 mg PO HS 06/17/25
apixaban 5 mg tablet (Eliquis) 5 mg PO BID 06/17/25
bumetanide 2 mg tablet 2 mg PO BID 06/17/25
clopidogrel 75 mg tablet 75 mg PO DAILY 06/17/25
empagliflozin 10 mg tablet (Jardiance) 10 mg PO DAILY 06/17/25
ezetimibe 10 mg tablet 10 mg PO HS 06/17/25
fenofibrate nanocrystallized 145 mg tablet 145 mg PO DAILY 06/17/25
gabapentin 600 mg tablet 600 mg PO TID 06/17/25
insulin aspart U-100 100 unit/mL (3 mL) subcutaneous pen (Novolog FlexPen U-100 Insulin aspart) 40 unit SC TIDWMEAL 06/17/25
insulin glargine U-300 conc 300 unit/mL (1.5 mL) subcutaneous pen (Toujeo SoloStar U-300 Insulin) 78 unit SC BID 06/17/25
omeprazole 20 mg capsule,delayed release 20 mg PO BID 06/17/25
rosuvastatin 40 mg tablet 40 mg PO HS 06/17/25
valproic acid 250 mg capsule 500 mg PO BID 06/17/25
fluoxetine 60 mg tablet 60 mg PO DAILY 06/18/25
insulin aspart U-100 100 unit/mL subcutaneous cartridge 1 sliding scale dose SC DIRECTED 07/18/25
Basal Metabolic Panel #1 ea 07/20/25
Classic Oxygen Concentrator device #1 ea 07/20/25
carvedilol 25 mg tablet 37.5 mg (1.5 x 25 mg) PO BID 30 days #90 tabs 07/20/25
lisinopril 20 mg tablet 20 mg PO DAILY #0 tabs 07/20/25
nitroglycerin 0.4 mg sublingual tablet 0.4 mg sublingual [id number] PRN Chest Pain #100 tabs 07/20/25
Review of Systems
-
History Source: Patient
A 12 point ROS was completed and negative except as noted: Yes
Constitutional: Reports Fatigue; Denies Fever or Chills
Respiratory: Reports Trouble Breathing; Denies Cough or Hemoptysis
Cardiac: Reports Chest Pain and Palpitations; Denies Syncope
Abdomen/GI: Denies Abdominal Pain, Nausea or Vomiting
: Denies Dysuria or Flank Pain
Musculoskeletal: Reports Edema; Denies Joint Pain
Neurological: Reports Dizzy and Headache
Psych: Denies Depression or Anxiety
Physical Exam
Vital Signs
Vital Signs
Temp Pulse Resp BP Pulse Ox
98.6 F 94 18 107/69 98
09/04/25 00:04 09/04/25 02:30 09/04/25 02:00 09/04/25 01:00 09/04/25 02:30
Physical Exam
General: No Apparent Distress and Comfortable
HEENT: NormoCephalic, Anicteric, Moist mucous membranes, Atraumatic, PERRLA and Other (Thick neck.)
Respiratory: Clear and Decreased Breath Sounds; No Wheezes, Rales or Rhonchi
Cardiac: S1/S2 and Regular Rhythm; No Murmur
GI: Soft, Non Tender, Non Distended, Normal Bowel Sounds and Other (Obese.)
Musculoskeletal: No Clubbing, No Cyanosis and Other (Trace pedal edema.)
Neuro: AO x 3 and Nonfocal/grossly intact
Hematologic/Lymphatic: No Lymphadenopathy
Psych: Calm
Laboratory Results
-
09/04/25 00:12
09/04/25 00:12
Laboratory Results
Total Bilirubin 0.3 mg/dl (0.2-1.3) 09/04/25 00:12
AST 35 U/L (17-59) 09/04/25 00:12
ALT 25 U/L (0-50) 09/04/25 00:12
Alkaline Phosphatase 118 U/L (38-126) 09/04/25 00:12
Troponin I 0.276 ng/ml H* D 09/04/25 01:54
Data Reviewed
-
Medical Tests (Nuc Med, Echo, EKG etc): Image Personally Visualized and interpreted
Lab Data: Labs Reviewed by me
Old Records: Reviewed
Impression/Plan
-
IMPRESSION:
55-year-old with past medical history of CAD, status post CABG, recent NSTEMI status post successful PCI to mid OM 2 through SVG, on Plavix and apixaban for proximal atrial fibrillation, insulin-dependent diabetes, untreated ARUN, hypertension, CHF
with mildly reduced EF presents to the emergency department with chest pain associated with palpitations and a measured heart rate at home was 170. He is currently chest pain-free but is found to have elevated troponin again to a high of 0.276.
PLAN:
NSTEMI -patient is about 2-1/2-week status post successful PCI to the mid OM2 to SVG for NSTEMI where he had a peak troponin of 0.58. Currently chest pain-free, hemodynamically stable at this time and not short of breath. ECG is nonischemic and
with normal sinus rhythm. Pain and ischemia could be rate induced given patient history of paroxysmal atrial fibrillation
� Admit to telemetry observation for now
� Discussed with cardiology, will continue his apixaban and Plavix at this time
� Continue to trend cardiac enzymes every 4-6 hours
� Nitroglycerin as needed if chest pain
� Continue intensive statin
� Continue PPI twice daily
� Cardiology consult
Paroxysmal atrial fibrillation -history of A-fib status post ablation, episodes of recurrent A-fib with pending evaluation for another ablation after weight loss
- Telemetry for now
� Continue anticoagulation with apixaban
� Continue Coreg
CHF -has apparent euvolemia, BNP is 281. Compared to his prior admission his weight is increased from 149-153Kg
� Continue his current therapies including Coreg, lisinopril, Jardiance
� Patient on Mounjaro
- Fluid restriction
� Hold parameters on the lisinopril for now
� Continue bumetanide 2 mg p.o. twice daily
� Daily weights
Hyponatremia -patient is on the slightly hypervolemic side but is on diuretics which may be contributing to his hyponatremia in the setting of intensive GDMT and lower blood pressures. On fluoxetine
� Check orthostatic vital signs
� Check urinary osmolarity
� Would recommend free water restriction to 1200 cc at this time
- Discussed discontinuation of fluoxetine with spouse which they both agreed to at this is discontinued at this time.
ARUN
� Patient is pending outpatient polysomnography, continue oxygen at bedtime at this time
DM2
� Continue insulin aspart with meals, Lantus 60 units twice daily, and sliding scale insulin
DVT prophylaxis�on apixaban
CODE STATUS�full code
[2025-09-04] MEDS: DILAUDID 0.5 MG IV (04:11)
[2025-09-04] MEDS: FLUSH (NSS) 1 FLUSH IV (04:12)
--- NOTE | 2025-09-04 07:08 | PTCARENOTE ---
Patient arrived from ED to [address] [facility]. Patient ambulated from stretcher to bed. Patient arrived to floor wearing a simple mask 6 L. Pulse ox 99%. Patient's baseline at home is 6-8 L simple mask. Communicated to nursing pastry supervisor and ELECT[employer] BE[employer] WELDER SETTER notified.
Respiratory therapist arrived at patient's bedside to assess O2 needs. Respiratory therapy states patient needs Ventimask. Ventimask applied 10 L. Pulse ox 97%. Information about O2 needs passed to oncoming nurse.
[2025-09-04 08:11] LABS: Glucose - Point of Care 184 mg/dl (70-99)
[2025-09-04] MEDS: FARXIGA 10 MG PO (08:17)
[2025-09-04] MEDS: PROTONIX 40 MG PO ×2 (08:17→20:52)
[2025-09-04] MEDS: BUMEX 2 MG PO (08:17)
[2025-09-04] MEDS: NEURONTIN 600 MG PO ×3 (08:17→20:52)
[2025-09-04] MEDS: COREG 37.5 MG PO ×2 (08:17→20:51)
[2025-09-04] MEDS: ELIQUIS 5 MG PO (08:19)
[2025-09-04] MEDS: TRICOR 145 MG PO (08:20)
[2025-09-04] MEDS: ZESTRIL 20 MG PO (08:21)
[2025-09-04] MEDS: NOVOLOG FLEXPEN 30 UNITS SC ×2 (08:25→12:54)
[2025-09-04] MEDS: NOVOLOG FLEXPEN-HIGH RESISTANCE 2 UNITS SC ×2 (08:26→12:55)
[2025-09-04] MEDS: DEPAKENE 500 MG PO ×2 (08:26→21:18)
[2025-09-04] MEDS: LANTUS 0.7 UNITS SC ×2 (08:27→21:18)
[2025-09-04] MEDS: PLAVIX 75 MG PO (08:35)
--- NOTE | 2025-09-04 08:37 | CON.CAR ---
Addendum entered and electronically signed by Demarcus Delarosa MD 09/04/25 12:03:
Patient was seen and evaluated personally. I agree with the documentation, plan of care and lengthy discussion with patient, family, primary hospitalist. I discussed his case in detail with interventional cardiology as well and with CT surgery.
I was personally involved in the critical care of this patient with his ongoing acute chest pain. Patient was noted to have 9 out of 10 chest pain with radiating to his back. Patient's EKG was done that shows normal sinus rhythm without any acute
ST-T wave changes. He does have history of coronary disease status post CABG with NSTEMI and history of PCI to SVT back in February 2025 in [place] and repeat NSTEMI with PCI to OM 2 in June 2025. Patient has a history of mixed cardiomyopathy
with recovered LVEF. He also has a history of typical atrial flutter for which he underwent CTI flutter ablation in May 2025. Since then he has also been diagnosed with paroxysmal atrial fibrillation. He has severe obstructive sleep apnea for
which he has not been able to get his CPAP or BiPAP at this time. He has a history of HTN, HPL, diabetes type 2, morbid obesity and untreated obstructive sleep apnea.
Patient presented to the ER with chest pain and initial troponin was 0.06. In the ER patient chest pain disappeared and follow-up troponin was 0.27. This morning he has a recurrence of his chest pain. His follow-up troponin is 1.7 now. His chest
pain was treated with sublingual nitro and needed Dilaudid for his severe headache. His pain responded to nitro/Dilaudid. He is chest pain-free.
Patient is sent emergently for CT angio to rule out aortic dissection with recent instrumentation to his coronary vessels and aorta.
Currently patient is on Eliquis/Plavix. He was not started on heparin in the ER. Given that he is already anticoagulated. With the suspicion of aortic dissection, we will not start heparin. However, I will discontinue his Eliquis tonight and start
heparin drip tonight if there is no dissection noted on the CT scan.
CCT 65 minutes.
Original Note:
Consultation
Consultation Request
Date/Time Consultation Requested: 09/04/2025 05:15
Date/Time Consultation Performed: 09/04/2025 09:00
Requesting Provider: Dr. Coombs
Performing Provider: JEAN CLAUDE Castillo for Dr. Delarosa
Reason for Consultation: NSTEMI
Medical History
-
Chief Complaint: Chest pain
History of Present Illness:
Bob Blount is a 55-year-old male (known to Dr. Powers, his primary electronic commerce specialist), with CAD status post CABG (KELLY�LAD, SVG�OM 2, SVG�PDA, [place] 2017), NSTEMI status post PCI to SVG (03/24), NSTEMI with PCI to OM 2 (06/2025), mixed
cardiomyopathy with recovered LVEF, paroxysmal atrial fibrillation/typical atrial flutter status post ablation 05/2025), hypertension, hypercholesterolemia, hypertriglyceridemia, insulin-dependent type 2 diabetes mellitus, untreated ARUN, and morbid
obesity presented to the emergency department with a chief complaint of chest pain. He endorses midsternal anterior nonradiating chest pain with associated nausea and palpitations. His , a registered nurse, reported his heart rate was elevated
at approximate 170 bpm. This chest discomfort is reminiscent from his presentation in June. EKG without acute ischemia. His initial troponin was 0.066 and has trended up to 0.276. He is having active midsternal anterior chest pain radiating
to his neck, back, B/L shoulders and arms. He is short of breath and requiring O2.
Past Medical History
Past Medical History: Arrhythmias (Typical atrial flutter, paroxysmal atrial fibrillation), CAD, CHF (Chronic HFpEF), HTN, Hypercholesterolemia and IDDM
Past Surgical History: Cardiac (CABG [2018])
Social History
Tobacco: Former Smoker
Drug: None
Personal:
Employment: Retired
Family History
Family History: Reviewed & Not Pertinent
Allergies / Home Medications
Allergy/AdvReac Type Severity Reaction Status Date / Time
morphine AdvReac Unknown causes Verified 09/04/25 00:48
'PTSD'
�Medication �Instructions �Recorded �Confirmed �Type
alprazolam 2 mg tablet 2 mg PO BID PRN anxiety 06/17/25 09/04/25 History
amitriptyline 25 mg tablet 25 mg PO HS 06/17/25 09/04/25 History
apixaban 5 mg tablet (Eliquis) 5 mg PO BID 06/17/25 09/04/25 History
bumetanide 2 mg tablet 2 mg PO BID 06/17/25 09/04/25 History
clopidogrel 75 mg tablet 75 mg PO DAILY 06/17/25 09/04/25 History
empagliflozin 10 mg tablet 10 mg PO DAILY 06/17/25 09/04/25 History
(Jardiance)
ezetimibe 10 mg tablet 10 mg PO HS 06/17/25 09/04/25 History
fenofibrate nanocrystallized 145 145 mg PO DAILY 06/17/25 09/04/25 History
mg tablet
gabapentin 600 mg tablet 600 mg PO TID 06/17/25 09/04/25 History
insulin aspart U-100 100 unit/mL 40 unit SC TIDWMEAL 06/17/25 09/04/25 History
(3 mL) subcutaneous pen (Novolog
FlexPen U-100 Insulin aspart)
insulin glargine U-300 conc 300 78 unit SC BID 06/17/25 09/04/25 History
unit/mL (1.5 mL) subcutaneous pen
(Toujeo SoloStar U-300 Insulin)
omeprazole 20 mg capsule,delayed 20 mg PO BID 06/17/25 09/04/25 History
release
rosuvastatin 40 mg tablet 40 mg PO HS 06/17/25 09/04/25 History
valproic acid 250 mg capsule 500 mg PO BID 06/17/25 09/04/25 History
fluoxetine 60 mg tablet 60 mg PO DAILY 06/18/25 09/04/25 History
insulin aspart U-100 100 unit/mL 1 sliding scale dose SC DIRECTED 07/18/25 09/04/25 History
subcutaneous cartridge
Basal Metabolic Panel #1 ea 07/20/25 09/04/25 Rx
Classic Oxygen Concentrator device #1 ea 07/20/25 09/04/25 Rx
carvedilol 25 mg tablet 37.5 mg (1.5 x 25 mg) PO BID 30 07/20/25 09/04/25 Rx
days #90 tabs
lisinopril 20 mg tablet 20 mg PO DAILY #0 tabs 07/20/25 09/04/25 Rx
nitroglycerin 0.4 mg sublingual 0.4 mg sublingual [id number] PRN 07/20/25 09/04/25 Rx
tablet Chest Pain #100 tabs
Physical Exam
Vital Signs
Temp Pulse Resp BP Pulse Ox
97.6 F 94 20 115/62 97
09/04/25 07:55 09/04/25 07:55 09/04/25 07:55 09/04/25 07:55 09/04/25 07:55
Lab Results
09/04/25 00:12
Troponin I 0.276 ng/ml H* D 09/04/25 01:54
Fab-U-Htuxzvjpwkf Pept 281 pg/ml 09/04/25 00:12
Impression / Plan
-
I/P: 55M with significant CAD CAD status post CABG (KELLY�LAD, SVG�OM 2, SVG�PDA, [place] 2017), NSTEMI status post PCI to SVG (03/24), NSTEMI with PCI to OM 2 (06/2025), mixed cardiomyopathy with recovered LVEF, paroxysmal atrial
fibrillation/typical atrial flutter status post ablation 05/2025), hypertension, hypercholesterolemia, hypertriglyceridemia, insulin-dependent type 2 diabetes mellitus, untreated ARUN, and morbid obesity presented to the emergency department with a
chief complaint of chest pain.
Primary electronic commerce specialist: Dr. Powers
Acute hypoxic respiratory failure
- Requiring Ventimask at 10L to maintain SpO2 > 92%
- No missed doses of Eliquis, doubt PE
- ABG ordered, he has needed BiPAP in the past
- Covid-19 pending, CXR now - consider CT
- Start IV diuresis
NSTEMI
- Actively having CP, refused SL NTG, EKG now
- Trend troponin to peak, currently 0.276, repeating now
HFpEF, recovered LVEF, chronic
- 06/2025 cath LVEDP 25mmHg at 328 pounds
- Diuresis with Bumex 2mg IV BID
- Continue Jardiance, consider adding MRA
- Trend daily weight, I/O, and BMP with diuresis
- Heart failure education
- Echocardiogram
Hyponatremia
- Fluoxetine stopped, fluid restriction
- Perhaps in the setting of hypervolemia
Paroxysmal atrial fibrillation, typical atrial flutter
- s/p ablation 05/2025
- In sinus rhythm
- Oral Anticoagulation: Eliquis 5mg BID, he denies missed doses and abnormal bleeding
- [id number]: score at least 4 (Heart failure, HTN, Diabetes Mellitus, Vascular disease)
CAD
- 2018 CABG (KELLY�LAD, SVG�OM 2, SVG�PDA, [place] 2018)
- 02/2025 PCI to SVG ([place], [place])
- 07/18/2025 PCI SVG to OM 2, on apixaban and clopidogrel
- Aggressive medical management
Hypercholesterolemia with hypertriglyceridemia
- Fasting lipid panel in a.m.
- Triglycerides were 1293 in June
Hypertension, chronic and stable
Anemia, chronic, denies abnormal bleeding
Type 2 diabetes mellitus, HgbA1c 7.5% in June, per primary service
ARUN, he needs outpatient ARUN evaluation
Former smoker, continued cessation recommended
Obesity, BMI 45, this affects all aspects of his care, he stopped Mounjaro due to nausea
Data Reviewed
-
EKG: Report Reviewed by me
Radiology: Report Reviewed by me
Medical Tests (Nuc Med, Echo etc): Report Reviewed by me
Labs: Labs Reviewed by me
Old Records: Reviewed
[2025-09-04 10:20] LABS: Troponin I 1.740 ng/ml
[2025-09-04 10:30] LABS: Blood Urea Nitrogen 34 mg/dl (9-20); Calcium 8.4 mg/dl (8.4-10.2); Carbon Dioxide 32 mmol/L (22-30); Chloride 92 mmol/L (98-107); Estimated Creatinine Clearance 112 ml/min; Glucose 254 mg/dl (70-99); Magnesium 2.0 mg/dl (1.6-2.3); Potassium 4.5 mmol/L (3.5-5.1); Sodium 131 mmol/L (135-145); eGFR > 60.00
[2025-09-04] MEDS: NITROSTAT (SUBLINGUAL) 0.4 MG SL ×2 (10:38→15:15)
[2025-09-04] MEDS: DILAUDID 0.25 MG IV ×4 (10:39→21:41)
[2025-09-04] MEDS: BUMEX 2 MG IV (10:40)
[2025-09-04 11:03] LABS: Glycohemoglobin (HgbA1c) 7.1 % (4.0-5.9)
--- NOTE | 2025-09-04 12:04 | W.PN.UPDATE ---
Update Note
Progress Note Update
Patient is also noted to be hypoxic and has severe obstructive sleep apnea without a treatment. He is already on home oxygen. Given ongoing chest pain and hypoxia, patient was started on high flow nasal oxygen cannula which was upgraded to facemask.
We will transfer patient to ICU/IMU and start him on BiPAP therapy.
Patient already received his Bumex this morning. We will hold his Bumex for p.m. dose.
Patient's blood pressure was tenuous with nitroglycerin, IV fluid was given.
Continue to monitor. Chest x-ray was done and reviewed personally. No significant pulmonary edema or pleural effusions noted.
CCT 35 min
[2025-09-04 12:26] LABS: Glucose - Point of Care 171 mg/dl (70-99)
--- NOTE | 2025-09-04 12:37 | W.PN.HOSP.TC ---
Today's Communication/Plan
-
hep ggt - 5 pm
hold bumex
Cont BiPAP 15/7 - wean as tolerated; cont QHS and naps; maintain o2 >92%
Tx to IMU
Assessment / Plan
Assessment / Plan
Physical Exam
General: No Apparent Distress and Comfortable
HEENT: NormoCephalic, Anicteric, Moist mucous membranes, Atraumatic, PERRLA and Other (Thick neck.)
Respiratory: Clear and Decreased Breath Sounds; No Wheezes, Rales or Rhonchi
Cardiac: S1/S2 and Regular Rhythm; No Murmur
GI: Soft, Non Tender, Non Distended, Normal Bowel Sounds and Other (Obese.)
Musculoskeletal: No Clubbing, No Cyanosis and Other (Trace pedal edema.)
Neuro: AO x 3 and Nonfocal/grossly intact
Hematologic/Lymphatic: No Lymphadenopathy
Psych: Calm
55-year-old with past medical history of CAD, status post CABG, recent NSTEMI status post successful PCI to mid OM 2 through SVG, on Plavix and apixaban for proximal atrial fibrillation, insulin-dependent diabetes, untreated ARUN, hypertension, CHF
with mildly reduced EF presents to the emergency department with chest pain associated with palpitations and a measured heart rate at home was 170. He is currently chest pain-free but is found to have elevated troponin again to a high of 0.276.
PLAN:
NSTEMI -patient is about 2-1/2-week status post successful PCI to the mid OM2 to SVG for NSTEMI where he had a peak troponin of 0.58. Currently chest pain-free, hemodynamically stable at this time and not short of breath. ECG is nonischemic and
with normal sinus rhythm.
�No plan for intervention as per cardiology
� Suspicion for aortic dissection, hold on heparin for now
� CT angio to assess
� no dissection, stop Eliquis, start heparin drip
� Continue Plavix
� Continue nitroglycerin as needed, with Dilaudid�monitor for hypotension
#Hypotension
� 1 episode after nitroglycerin, Dilaudid
� LR bolus with improvement
� Continue to monitor
# Acute on chronic hypoxic respiratory failure
� Has history of severe obstructive sleep apnea, was planning for CPAP initiation outpatient; also has extensive Smoking hx - not wheezing
� X-ray with mild pulmonary vascular congestion - no congestion on CTA
� Continue diuretics, hold for hypotension
� Initiate BiPAP 15/7 - Cont to wean; can continue qhs and naps
- CTA with no signifincant pleural effusions - no dissection
-F/u VBG, unable to obtain ABG
-wean o2 as tolerated
Chronic HFmrEF
-Holding diuretics with hypotension
-Cont Fluid restriction
-On Bumex 2mg BID
-Monitor Daily weights, Is&Os
Paroxysmal atrial fibrillation
- Telemetry for now
� Apixaban - switch to hep ggt
� Continue Coreg
Hyponatremia
� Would recommend free water restriction
-Monitor
- Discussed discontinuation of fluoxetine with spouse which they both agreed to at this is discontinued at this time.
ARUN
� Patient is pending outpatient polysomnography, continue oxygen at bedtime at this time
-BiPAP in the interim
DM2
� Continue insulin aspart with meals, Lantus 60 units twice daily, and sliding scale insulin
Morbid Obesity due to excess calories
- Affects all aspects of care.
- Encourage efforts at weight loss including health diet, increased exercise, etc.
DVT prophylaxis�Hep ggt 5 pm
CODE STATUS�full code
Total Critical Care Time 51 minutes. I was immediately available to the patient and staff. I personally examined, reviewed labs, diagnostic images/reports, interpretations, treatment plans, discussed patient care with other providers and family
or caregivers (if patient is unable to make decisions), entered orders as appropriate and documented the medical record.
Anticipated Discharge: > 48 hours
Subjective/Interval History
-
Date of Service: September 04, 2025
chest pain- improved with nitro and dilaudid (for headaches) - subsequent hypotension; As per Cards - no plans for intervention
Objective Data
-
Labs:
Laboratory Results
09/04/25 09/04/25 09/04/25
00:12 09:19 10:27
WBC 10.3
Hgb 10.5 L
Hct 33.7 L
Plt Count 371
HCO3 Cancelled
Sodium 129 L 131 L
Potassium 5.0 4.5
Chloride 90 L 92 L
Carbon Dioxide 33 H 32 H
BUN 35 H 34 H
Creatinine 1.5 H 1.1
Glucose 280 H 254 H
Calcium 8.3 L 8.4
Total Bilirubin 0.3
AST 35
ALT 25
Alkaline Phosphatase 118
Vital Signs:
Vital Signs
Temp Pulse Resp BP Pulse Ox
97.6 F 89 20 81/45 96
09/04/25 07:55 09/04/25 10:48 09/04/25 07:55 09/04/25 10:48 09/04/25 11:23
Review of Systems
-
History Source: Patient
All other systems: Not reviewed unless documented
Data Reviewed
-
Diagnostic Radiology: Report Reviewed by me
Labs: Labs Reviewed by me
[2025-09-04 13:14] LABS: Venous Blood Gas B.E. 6.3 mmol/L (-4 to +4); Venous Blood Gas O2 Sat % 96.8 %
[2025-09-04 13:36] LABS: Troponin I 1.830 ng/ml
[2025-09-04] MEDS: LR 500 IV (13:38)
[2025-09-04 13:48] LABS: Hematocrit 30.7 % (39.0-52.0); Hemoglobin 9.0 g/dL (13.0-18.0); Mean Corp Hgb Conc. 29.3 g/dL (33.0-37.0); Mean Corpuscular Volume 76.4 fL (80.0-94.0); Platelet Count 293 10^3/uL (130-400); Red Cell Dist. Width 17.6 % (11.5-14.5)
[2025-09-04 13:54] LABS: APTT 31.5 Sec (23.4-35.0)
--- NOTE | 2025-09-04 14:30 | PTCARENOTE ---
Received patient from [facility] via [id number], NSR in 90s, BP WNL, on Simple mask 6L, pending change to BiPAP, 1800 CCD with 1200mL fluid restriction, assistance with urinal.
--- NOTE | 2025-09-04 14:37 | PTCARENOTE ---
Patient with c/o chest pain this morning / and radiating to back. EKG - NSR, Cardiology present in room Nitro, Dilaudid, and Bumex administered. Pt with BP 81/45 Bolus ordered and administered with +effects. Chest CT ordered and Pt taken prior to
being transferred to ICU. Report given to ICU nurse, belongings taken. Pt now in room 3358.
--- NOTE | 2025-09-04 15:30 | PTCARENOTE ---
Patient complained 9 out of 10 anterior chest pressure and huge headache and reported previous Dilaudid helped. Made Dr. Obregon aware and carried out orders.
Made CARDS Dr. Delarosa aware that patient's BP drop after Nitro SL and most recent Trop was elevated to 1.83. Per Dr. Delarosa, avoid Nitro SL for now and recheck Trop tonight and tmr AM.
--- NOTE | 2025-09-04 16:30 | PTCARENOTE ---
Reassessed the patient, tolerating BiPAP, doing Echo at bedside.
[2025-09-04] MEDS: HEPARIN 25000 UNITS/250 ML IV (17:04)
--- NOTE | 2025-09-04 17:08 | CARDSERVLU ---
Echocardiogram with Lumason completed after protocol screening completed. Allergies verified.
Patent IV site: _RH____
IV site flushed with 0.9% NaCl pre and post administration.
Diluted bolus method utilized to enhance visualization of ventricular moralez.
Total volume given: __2__ mL
Patient tolerated all procedures well without complications.
[2025-09-04 17:26] LABS: Glucose - Point of Care 100 mg/dl (70-99)
--- NOTE | 2025-09-04 17:34 | PTCARENOTE ---
Patient refused covid swab, made Dr. Nunez aware.
[2025-09-04] MEDS: NOVOLOG FLEXPEN-HIGH RESISTANCE SC (17:40)
[2025-09-04] MEDS: NOVOLOG FLEXPEN 15 UNITS SC (17:40)
--- NOTE | 2025-09-04 17:53 | PTCARENOTE ---
Notified Dr. Nunez about patient's glucose check was 100. Asked if we should adjust meal time standing 30 units insulin if patient eats entire dinner tray. Per Dr. Nunez, gave 15 units insulin SQ.
[2025-09-04] MEDS: CRESTOR 40 MG PO (20:51)
[2025-09-04] MEDS: XANAX 2 MG PO (20:52)
[2025-09-04] MEDS: ZETIA 10 MG PO (20:52)
[2025-09-04] MEDS: ELAVIL 25 MG PO (21:18)
[2025-09-04 21:28] LABS: Glucose - Point of Care 117 mg/dl (70-99)
[2025-09-04 22:34] LABS: APTT 30.6 Sec (23.4-35.0)
[2025-09-04 23:04] LABS: Troponin I 1.060 ng/ml
[2025-09-05] VITALS (38 sets, daily range): BP systolic 63–163; BP diastolic 49–92; PULSE 2–89; BMI 44.8
[2025-09-05 04:48] LABS: Hematocrit 33.0 % (39.0-52.0); Hemoglobin 9.7 g/dL (13.0-18.0); Mean Corp Hgb Conc. 29.4 g/dL (33.0-37.0); Mean Corpuscular Volume 77.1 fL (80.0-94.0); Platelet Count 310 10^3/uL (130-400); Red Cell Dist. Width 17.7 % (11.5-14.5)
[2025-09-05] MEDS: DILAUDID 0.25 MG IV (05:02)
[2025-09-05 05:16] LABS: APTT 31.1 Sec (23.4-35.0); Blood Urea Nitrogen 36 mg/dl (9-20); Calcium 9.1 mg/dl (8.4-10.2); Carbon Dioxide 31 mmol/L (22-30); Chloride 96 mmol/L (98-107); Estimated Creatinine Clearance 103 ml/min; Glucose 160 mg/dl (70-99); HDL Cholesterol 20 mg/dl; Potassium 4.6 mmol/L (3.5-5.1); Sodium 135 mmol/L (135-145); eGFR > 60.00
[2025-09-05 05:28] LABS: Troponin I 0.752 ng/ml
--- NOTE | 2025-09-05 05:40 | PTCARENOTE ---
Assumed care at 1900. NSR on the monitor. On heparin gtt. PRN dilaudid given for chest pain with relief.
[2025-09-05 05:54] LABS: LDL Cholesterol, Direct < 30 mg/dl
--- NOTE | 2025-09-05 07:00 | PTCARENOTE ---
Received patient A&Ox4, NSR in 90s, BP WNL, stated chest pressure pain improved overnight, on Venti mask 6L, 1800 CCD with 1200mL fluid restriction, continent with urinal.
[2025-09-05 07:52] LABS: Glucose - Point of Care 174 mg/dl (70-99)
[2025-09-05] MEDS: NOVOLOG FLEXPEN-HIGH RESISTANCE 2 UNITS SC (08:00)
[2025-09-05] MEDS: NOVOLOG FLEXPEN 30 UNITS SC ×3 (08:00→17:12)
[2025-09-05] MEDS: LANTUS 0.7 UNITS SC ×2 (08:25→19:52)
[2025-09-05] MEDS: TRICOR 145 MG PO (08:25)
[2025-09-05] MEDS: NEURONTIN 600 MG PO ×3 (08:25→19:52)
[2025-09-05] MEDS: PLAVIX 75 MG PO (08:26)
[2025-09-05] MEDS: COREG 37.5 MG PO (08:26)
[2025-09-05] MEDS: FARXIGA 10 MG PO (08:26)
[2025-09-05] MEDS: ZESTRIL 20 MG PO (08:27)
[2025-09-05] MEDS: PROTONIX 40 MG PO ×2 (08:27→19:51)
[2025-09-05] MEDS: DEPAKENE 500 MG PO ×2 (08:28→19:51)
[2025-09-05 12:08] LABS: Glucose - Point of Care 129 mg/dl (70-99)
[2025-09-05] MEDS: RANEXA EXTENDED RELEASE 500 MG PO ×2 (12:10→19:51)
[2025-09-05] MEDS: NOVOLOG FLEXPEN-HIGH RESISTANCE SC ×2 (12:15→17:00)
--- NOTE | 2025-09-05 12:18 | W.PN.CD ---
Today's Communication / Plan
-
- Reduce Coreg to 25 mg twice a day, reduce lisinopril to 10 mg once a day
- Add Isordil 10 mg 3 times daily, Ranexa 500 mg twice daily
- Continue heparin drip for now.
- Apixaban is on hold while on heparin drip.
- With hypotension. Bumex was held. Can resume now.
- Consider starting CPAP/BiPAP as outpatient. Pulmonary evaluation for urgent CPAP at home
Impression / Plan
-
I/P: 55M with significant CAD [facility] [place] [facility] NSTEMI status post PCI to SVG (03/24), NSTEMI with PCI to OM 2 (06/2025), mixed cardiomyopathy with recovered LVEF, paroxysmal atrial
fibrillation/typical atrial flutter status post ablation 05/2025), hypertension, hypercholesterolemia, hypertriglyceridemia, insulin-dependent type 2 diabetes mellitus, untreated ARUN, and morbid obesity presented to the emergency department with a
chief complaint of chest pain.
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
Acute hypoxic respiratory failure
- Requiring Ventimask at 10L to maintain SpO2 > 92%
- No missed doses of Eliquis, doubt PE
- Improved significantly with BiPAP.
- Chest x-ray shows atelectasis. CT chest rule out PE and dissection. Right lung basal scarring noted.
- Hypoxia appears to to be related to untreated obstructive sleep apnea
- Treated adequately with BiPAP.
- Continue IV diuresis�holding due to hypotension.
CAD/chest pain
- 2018 CABG (KELLY�LAD, SVG�OM 2, SVG�PDA, [place] 2017)
- 02/2025 PCI to SVG ([place], [place])
- 07/18/2025 PCI SVG to OM 2, on apixaban and clopidogrel
- Non-MD troponin leak due to demand ischemia with ongoing hypoxia
- Severe chest pain noted on 07/05/2025urrently chest pain-free.
- EKG was normal. Serial troponin shows mild rise in troponin that has already peaked and is low now
- Patient was given sublingual nitro that causes severe headache. Needed narcotics.
- Patient's case was discussed in detail with interventional cardiology.
- Recent intervention with PCI to SVG to OM. Stents at [place] and last month here at [facility].
- No significant targets left with baseline moderate to severe disease noted
- Emergent echo 09/04/2025: Systolic function is preserved with no wall motion abnormalities noted. Unchanged from previous echo.
- Patient cannot tolerate sublingual nitro. We will start patient on Isordil 10 mg 3 times daily
- Start patient on Ranexa 500 milligram twice daily
- Will drop Coreg from 37.5 to 25 mg twice a day. Will also drop lisinopril from 20 to 10 mg.
- Consider CPAP/BiPAP at home with ongoing demand ischemia.
HFpEF, recovered LVEF, chronic
- 06/2025 cath LVEDP 25mmHg at 328 pounds
- Diuresis with Bumex 2mg IV BID
- Continue Jardiance, consider adding MRA
- Trend daily weight, I/O, and BMP with diuresis
- Heart failure education
- Echocardiogram
Hyponatremia
- Fluoxetine stopped, fluid restriction
- Perhaps in the setting of hypervolemia
Paroxysmal atrial fibrillation, typical atrial flutter
- s/p ablation 05/2025
- In sinus rhythm
- Oral Anticoagulation: Eliquis 5mg BID, he denies missed doses and abnormal bleeding
- [id number]: score at least 4 (Heart failure, HTN, Diabetes Mellitus, Vascular disease)
- Aggressive medical management
Hypercholesterolemia with hypertriglyceridemia
- Fasting lipid panel in a.m.
- Triglycerides were 1293 in June
Hypertension, chronic and stable
Anemia, chronic, denies abnormal bleeding
Type 2 diabetes mellitus, HgbA1c 7.5% in June, per primary service
ARUN, he needs outpatient ARUN evaluation
Former smoker, continued cessation recommended
Obesity, BMI 45, this affects all aspects of his care, he stopped Mounjaro due to nausea
Physical Exam
Vital Signs/Labs
Vital Signs
Temp Pulse Resp BP Pulse Ox
98.0 F 91 15 138/82 98
09/05/25 08:00 09/05/25 08:27 09/05/25 06:02 09/05/25 08:27 09/05/25 05:00
09/04/25 09/05/25 09/06/25
06:59 06:59 06:59
Actual Weight 150.791 kg 149.7 kg
09/05/25 04:29
09/05/25 04:29
APTT 31.1 Sec (23.4-35.0) 09/05/25 04:29
Magnesium 2.0 mg/dl (1.6-2.3) 09/04/25 09:19
Triglycerides 1099 mg/dl (10-149) H 09/05/25 04:29
LDL Cholesterol, Calc mg/dl 09/05/25 04:29
VLDL Cholesterol, Calc mg/dl (0-30) 09/05/25 04:29
HDL Cholesterol 20 mg/dl 09/05/25 04:29
09/04/25
00:12
Cbt-A-Rrmiebgtpli Pept 281
LAB Results
09/04/25 09/04/25 09/04/25
00:12 01:54 09:19
Troponin I 0.066 H* 0.276 H* D 1.740 H* D
09/04/25 09/04/25 09/05/25
12:52 22:13 04:29
Troponin I 1.830 H* 1.060 H* 0.752 H* D
Physical Exam
Constitutional: No acute distress and Comfortable
EENT: Anicteric and Moist mucous membranes
Cardiovascular: Rhythm & rate is regular, Pedal edema is absent, JVD present and Systolic murmur present
Respiratory: Respiratory effort normal
GI: Soft, Non tender and Normal bowel sounds
Neuro/Psych: Alert, Oriented, AO x 3 and Motor deficits absent
Data Reviewed
-
Date of Service: September 05, 2025
Medical Decision Making: Reviewed Test Results, Test Interpretation and Review of Case with other Provider
EKG: Tracing Personally Visualized and interpreted
Echo: Tracing Personally Visualized and interpreted
X-Ray/CT/US/MRI/NUC/PET: Image Personally Visualized and interpreted
Labs: Labs Reviewed by me
Old Records: Reviewed
--- NOTE | 2025-09-05 12:30 | PTCARENOTE ---
Reassessed the patient, patient reported feeling dizzy while sitting up eating lunch and stated chest feeling heavy, instructed patient to lay back down to bed, Dizziness improved. This RN noticed patient was not wearing Venti mask while eating,
explained and educated both the patient and the importance of oxygen to the heart. Patient agreed to try Midflow NC while eating. Patient stated Chest heaviness improved with rest and oxygen afterwards.
[2025-09-05] MEDS: HEPARIN 25000 UNITS/250 ML IV (12:53)
[2025-09-05 13:06] LABS: APTT 30.3 Sec (23.4-35.0)
--- NOTE | 2025-09-05 14:10 | W.PN.HOSP.TC ---
Today's Communication/Plan
-
Reduce Coreg, ACEI
Add Isordil 10 mg 3 times daily, Ranexa 500 mg twice daily
ABG in AM for BiPAP at home
CM consulted
Assessment / Plan
Assessment / Plan
Physical Exam
General: No Apparent Distress and Comfortable
HEENT: NormoCephalic, Anicteric, Moist mucous membranes, Atraumatic, PERRLA and Other (Thick neck.)
Respiratory: Clear and Decreased Breath Sounds; No Wheezes, Rales or Rhonchi
Cardiac: S1/S2 and Regular Rhythm; No Murmur
GI: Soft, Non Tender, Non Distended, Normal Bowel Sounds and Other (Obese.)
Musculoskeletal: No Clubbing, No Cyanosis and Other (Trace pedal edema.)
Neuro: AO x 3 and Nonfocal/grossly intact
Hematologic/Lymphatic: No Lymphadenopathy
Psych: Calm
55-year-old with past medical history of CAD, status post CABG, recent NSTEMI status post successful PCI to mid OM 2 through SVG, on Plavix and apixaban for proximal atrial fibrillation, insulin-dependent diabetes, untreated ARUN, hypertension, CHF
with mildly reduced EF presents to the emergency department with chest pain associated with palpitations and a measured heart rate at home was 170. He is currently chest pain-free but is found to have elevated troponin again to a high of 0.276.
PLAN:
NSTEMI -patient is about 2-1/2-week status post successful PCI to the mid OM2 to SVG for NSTEMI where he had a peak troponin of 0.58. Currently chest pain-free, hemodynamically stable at this time and not short of breath. ECG is nonischemic and
with normal sinus rhythm.
�No plan for intervention as per cardiology
� Suspicion for aortic dissection, - CTA negative
� no dissection, stop Eliquis, start heparin drip
� Continue Plavix
� Continue nitroglycerin as needed, with Dilaudid�monitor for hypotension
-Add Isordil 10 mg 3 times daily, Ranexa 500 mg twice daily
-Trop peaked at 1.8
#Hypotension, resolved
� 1 episode after nitroglycerin, Dilaudid
� LR bolus with improvement
� Continue to monitor
-improved
-can resume bumex now
# Acute on chronic hypoxic respiratory failure
� Has history of severe obstructive sleep apnea, was planning for CPAP initiation outpatient; also has extensive Smoking hx - not wheezing
� X-ray with mild pulmonary vascular congestion - no congestion on CTA
� Continue diuretics, hold for hypotension
� Initiate BiPAP 13/04 - Improved; Continue qPM
-wean o2 as tolerated; goal o2>92%
- High suspicion of ARUN/OHS
- ABG in the AM for CM request for BiPAP; if CO2 >50 with high suspicion of ARUN/OHS - qualifies for BiPAP
- Cont to wean; can continue qhs and naps
- CTA with no signifincant pleural effusions - no dissection
-wean o2 as tolerated
Chronic HFmrEF
resume diuretics
-Cont Fluid restriction
-On Bumex 2mg BID
-Monitor Daily weights, Is&Os
Reduce Coreg to 25mg BID
Paroxysmal atrial fibrillation
- Telemetry for now
� Apixaban - switch to hep ggt
� Continue Coreg
Hyponatremia
� Would recommend free water restriction
-Monitor
- Discussed discontinuation of fluoxetine with spouse which they both agreed to at this is discontinued at this time.
ARUN
� Patient is pending outpatient polysomnography, continue oxygen at bedtime at this time
-BiPAP in the interim
-- High suspicion of ARUN/OHS
- ABG in the AM for CM request for BiPAP; if CO2 >50 with high suspicion of ARUN/OHS - qualifies for BiPAP
- Cont to wean; can continue qhs and naps
DM2
� Continue insulin aspart with meals, Lantus 60 units twice daily, and sliding scale insulin
Morbid Obesity due to excess calories
- Affects all aspects of care.
- Encourage efforts at weight loss including health diet, increased exercise, etc.
DVT prophylaxis�Hep ggt
CODE STATUS�full code
Total Critical Care Time 53 minutes. I was immediately available to the patient and staff. I personally examined, reviewed labs, diagnostic images/reports, interpretations, treatment plans, discussed patient care with other providers and family
or caregivers (if patient is unable to make decisions), entered orders as appropriate and documented the medical record.
Anticipated Discharge: 24 - 48 hours
Subjective/Interval History
-
Date of Service: September 05, 2025
feels better
Objective Data
-
Labs:
Laboratory Results
09/05/25 09/05/25 09/05/25
04:29 12:39 19:40
WBC 8.4
Hgb 9.7 L
Hct 33.0 L
Plt Count 310
APTT 31.1 30.3 Pending
Sodium 135
Potassium 4.6
Chloride 96 L
Carbon Dioxide 31 H
BUN 36 H
Creatinine 1.2
Glucose 160 H
Calcium 9.1
Vital Signs:
Vital Signs
Temp Pulse Resp BP Pulse Ox
98.3 F 91 15 138/82 98
09/05/25 12:00 09/05/25 08:27 09/05/25 06:02 09/05/25 08:27 09/05/25 05:00
I&O
09/04/25 09/05/25 09/06/25
06:59 06:59 06:59
Intake Total 876 / 876
Output Total 2039
Balance -1164 / -1164
Review of Systems
-
History Source: Patient
All other systems: Not reviewed unless documented
Data Reviewed
-
Diagnostic Radiology: Report Reviewed by me
Labs: Labs Reviewed by me
--- NOTE | 2025-09-05 15:02 | CM ---
Patient seen at bedside on BIPAP. Patient also present. Per they are in process of moving from [facility] and have a home in [place] that has a one floor set up with 3 steps to enter. patient PCP is JARVIS Vivas and they use the [facility] on [address] Patient has home O2 that they bought from [facility] after renting from [facility]. 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 Patient asking to sent referral/script to [facility] or
[facility] whoever is the closest. Patient for ABG in am and then physician to confirm that he will need the BIPAP at home. Patient indicated that patient was independent prior to admission. CM will continue to follow for discharge planning needs.
Plan; home with VN and BIPAP referral pending medical treatment plan.
[2025-09-05] MEDS: BUMEX 2 MG PO (15:48)
[2025-09-05 16:44] LABS: Glucose - Point of Care 137 mg/dl (70-99)
[2025-09-05] MEDS: ISORDIL 10 MG PO (17:10)
--- NOTE | 2025-09-05 18:10 | PTCARENOTE ---
Made CARDS Dr. Delarosa aware that after taking Isosorbide, patient's BP dropped down as low as 65/52(58) but he recovered back to 88/54 (65). MD ordered to discontinue this medication.
[2025-09-05] MEDS: ELAVIL 25 MG PO (19:51)
[2025-09-05] MEDS: ZETIA 10 MG PO (19:51)
[2025-09-05] MEDS: CRESTOR 40 MG PO (19:51)
[2025-09-05] MEDS: COREG 25 MG PO (19:51)
[2025-09-05] MEDS: XANAX 2 MG PO (19:51)
[2025-09-05 20:09] LABS: Glucose - Point of Care 165 mg/dl (70-99)
[2025-09-05 20:24] LABS: APTT 30.3 Sec (23.4-35.0)
[2025-09-06] VITALS (12 sets, daily range): BP systolic 91–122; BP diastolic 52–84; PULSE 2–88; BMI 44.8
[2025-09-06] MEDS: HEPARIN 25000 UNITS/250 ML IV (03:52)
[2025-09-06 05:02] LABS: APTT 32.6 Sec (23.4-35.0)
[2025-09-06 05:16] LABS: Blood Urea Nitrogen 38 mg/dl (9-20); Calcium 8.8 mg/dl (8.4-10.2); Carbon Dioxide 32 mmol/L (22-30); Chloride 99 mmol/L (98-107); Estimated Creatinine Clearance 102 ml/min; Glucose 141 mg/dl (70-99); Potassium 5.2 mmol/L (3.5-5.1); Sodium 136 mmol/L (135-145); eGFR > 60.00
--- NOTE | 2025-09-06 05:17 | PTCARENOTE ---
Assumed care at 1900. normal sinus rhythm on the monitor. Remained on the venti mask overnight to qualify for sleep study. Sp02 down as low as 51 percent with periods of apnea with quick recovery. ABG obtained by RT. Remains on heparin gtt. No chest
pain overnight.
[2025-09-06 05:20] LABS: B.E. 5.7 mmol/L; HCO3 32.2 mmol/L (21-28); O2 Saturation % 93.4 % (94-98); PCO2 57 mmHg (35-48); PO2 72 mmHg (83-108)
[2025-09-06 05:29] LABS: Hematocrit 30.3 % (39.0-52.0); Hemoglobin 8.7 g/dL (13.0-18.0); Mean Corp Hgb Conc. 28.7 g/dL (33.0-37.0); Mean Corpuscular Volume 77.5 fL (80.0-94.0); Platelet Count 269 10^3/uL (130-400); Red Cell Dist. Width 17.7 % (11.5-14.5)
[2025-09-06 07:52] LABS: Glucose - Point of Care 163 mg/dl (70-99)
--- NOTE | 2025-09-06 08:00 | PTCARENOTE ---
Pt rec'd in walking rounds coming back from bathroom with RN, states he 'feels great' and is chest pain free. VSS at this time. Pt remains on ventimask, hep gtt at 2000u/hr. Will discuss plan of care with attending on rounds. Safe environment
ongoing, call weathers in reach.
[2025-09-06] MEDS: NOVOLOG FLEXPEN-HIGH RESISTANCE 2 UNITS SC (09:34)
[2025-09-06] MEDS: NOVOLOG FLEXPEN 30 UNITS SC ×3 (09:35→17:29)
[2025-09-06] MEDS: LANTUS 0.7 UNITS SC ×2 (09:35→20:21)
[2025-09-06] MEDS: PLAVIX 75 MG PO (09:37)
[2025-09-06] MEDS: ZESTRIL 10 MG PO (09:37)
[2025-09-06] MEDS: BUMEX 2 MG PO ×2 (09:37→16:00)
[2025-09-06] MEDS: NEURONTIN 600 MG PO ×3 (09:38→19:57)
[2025-09-06] MEDS: PROTONIX 40 MG PO ×2 (09:38→19:56)
[2025-09-06] MEDS: RANEXA EXTENDED RELEASE 500 MG PO ×2 (09:38→18:54)
[2025-09-06] MEDS: TRICOR 145 MG PO (09:38)
[2025-09-06] MEDS: FARXIGA 10 MG PO (09:38)
[2025-09-06] MEDS: COREG 25 MG PO ×2 (09:38→19:58)
[2025-09-06] MEDS: DEPAKENE 500 MG PO ×2 (09:38→19:57)
--- NOTE | 2025-09-06 09:44 | W.PN.HOSP.TC ---
Today's Communication/Plan
-
Switch to oral Eliquis
Check iron studies and heme test stools
Consult pulmonary
Assessment / Plan
Assessment / Plan
55-year-old with past medical history of CAD, status post CABG, recent NSTEMI status post successful PCI to mid OM 2 through SVG, on Plavix and apixaban for proximal atrial fibrillation, insulin-dependent diabetes, untreated ARUN, hypertension, CHF
with mildly reduced EF presents to the emergency department with chest pain associated with palpitations and a measured heart rate at home was 170. He is currently chest pain-free but is found to have elevated troponin again to a high of 0.276.
PLAN:
NSTEMI -patient is about 2-1/2-week status post successful PCI to the mid OM2 to SVG for NSTEMI where he had a peak troponin of 0.58. Currently chest pain-free, hemodynamically stable at this time and not short of breath. ECG is nonischemic and
with normal sinus rhythm.
� No plan for intervention as per cardiology
� CTA negative for PE and aortic dissection
- Trop peaked at 1.8
- Patient currently asymptomatic
- Patient started on antianginal medication-Ranexa
- With no plans for interventions IV heparin switched to his home anticoagulation Eliquis
- Continue with Plavix
- Continue with Coreg
-Echo showed normal no changes. Normal EF.
# Severe hypertriglyceridemia
Patient tells me today it runs in his whole family including grandmother. He never got checked for familial chylomicrons syndrome.
He apparently was told at 1 point it was more than 11,000 again 11,000. Now it is 1099.
No history of pancreatitis
Is currently on statins and fenofibrate and Zetia
Will ask cardiology to make a referral to hyperlipidemia specialist.
# Acute on chronic hypoxic respiratory failure
� Has history of severe obstructive sleep apnea, was planning for CPAP initiation outpatient; also has extensive Smoking hx - not wheezing. Patient says he was told he has emphysema. Unknown baseline PFTs
� X-ray with mild pulmonary vascular congestion - no congestion on CTA
� Continue diuretics, hold for hypotension
� Initiate BiPAP 15/7 - Improved; Continue qPM
- wean o2 as tolerated; goal o2>92%
- High suspicion of ARUN/OHS
- ABG in the AM for CM request for BiPAP; if CO2 >50 with high suspicion of ARUN/OHS - qualifies for BiPAP
- Cont to wean; can continue qhs and naps
- CTA with no signifincant pleural effusions - no dissection
- wean o2 as tolerated
- Consult pulmonary with concurrent ARUN and emphysema now in need of BiPAP which will be new for him at home
Chronic HFmrEF
-Compensated
-Cont Fluid restriction
-On Bumex 2mg BID
-Monitor Daily weights, Is&Os
Reduce Coreg to 25mg BID
Paroxysmal atrial fibrillation
- Telemetry for now
� Apixaban -
� Continue Coreg
Severe anemia
Mildly microcytic
Iron studies couple of months shows iron deficiency
Repeat iron studies and heme test stools.
Last colonoscopy when he was in 20s.
Hyponatremia
� Would recommend free water restriction
- Normalized
- Discussed discontinuation of fluoxetine with spouse which they both agreed to at this is discontinued at this time.
ARUN
� See above
DM2
� Continue insulin aspart with meals, Lantus 60 units twice daily, and sliding scale insulin
Morbid Obesity due to excess calories
- Affects all aspects of care.
- Encourage efforts at weight loss including health diet, increased exercise, etc.
DVT prophylaxis�Hep ggt
CODE STATUS�full code
Discussed with RN at bedside
Total time spent on today's encounter was 52 minutes which included time spent in counseling the patient/family regarding diagnosis and treatment plan as listed above, goals of care, and symptom management. Case was discussed with nursing staff,
specialists, and care coordinators/case management. All labs and imaging personally reviewed by me. Remainder the time spent in detailed review of previous records, lab data, imaging, and other medical provider documentation.
Transfer to telemetry if okay from cardiology standpoint
Anticipated Discharge: > 48 hours
Subjective/Interval History
-
Date of Service: September 06, 2025
No further chest pain. Denies shortness of breath. No dizziness.
No nausea vomiting.
Objective Data
-
Labs:
Laboratory Results
09/06/25 09/06/25 09/06/25
04:37 05:12 11:30
WBC 8.1
Hgb 8.7 L
Hct 30.3 L
Plt Count 269
APTT 32.6 Pending
HCO3 32.2 H
Sodium 136
Potassium 5.2 H
Chloride 99
Carbon Dioxide 32 H
BUN 38 H
Creatinine 1.2
Glucose 141 H
Calcium 8.8
Vital Signs:
Vital Signs
Temp Pulse Resp BP Pulse Ox
98.2 F 92 17 119/64 97
09/06/25 08:00 09/06/25 09:00 09/06/25 09:00 09/06/25 08:00 09/06/25 09:00
I&O
09/05/25 09/06/25 09/07/25
06:59 06:59 06:59
Intake Total 1116 / 1370 1326 / 1326
Output Total 2039 / 2039 1600 / 1600
Balance -924 / -670 -274 / -274
Physical Exam
-
General: Comfortable
Respiratory: Clear to Auscultation and Non Labored Respirations; Negative Accessory Resp Muscle Use
Cardiac: Regular Rhythm and S1/S2; Negative Tachycardic
GI: Soft, Nontender and Other (Obese)
Musculoskeletal: No Edema
Neuro: AO x 3
Psych: Calm
Data Reviewed
-
Labs: Labs Reviewed by me
--- NOTE | 2025-09-06 10:18 | W.PN.CD ---
Today's Communication / Plan
-
home BiPAP/CPAP evaluation
cont. PO diuresis for goal net even
outpatient discussion or rhythm control strategy for Afib
outpatient initiation of icosapent ethyl and discussion of need for further trig therapies / genetic testing
Impression / Plan
-
I/P: 55M with significant CAD CAD status post CABG (KELLY[facility]LAD, SVG�OM 2, [facility] [place] [facility]), NSTEMI status post PCI to SVG (03/24), NSTEMI with PCI to OM 2 (06/2025), mixed cardiomyopathy with recovered LVEF, paroxysmal atrial
fibrillation/typical atrial flutter status post ablation 05/2025), hypertension, hypercholesterolemia, hypertriglyceridemia, insulin-dependent type 2 diabetes mellitus, untreated ARUN, and morbid obesity presented to the emergency department with a
chief complaint of chest pain.
Primary biomedical technician: Dr. Powesr
Acute hypoxic respiratory failure
- Requiring Ventimask at 10L to maintain SpO2 > 92%
- No missed doses of Eliquis, doubt PE
- Improved significantly with BiPAP.
- Chest x-ray shows atelectasis. CT chest rule out PE and dissection. Right lung basal scarring noted.
- Hypoxia appears to to be related to untreated obstructive sleep apnea
- Treated adequately with BiPAP.
- Continue PO diuresis to maintain current weight
- setup with home non invasive ventilation
CAD/chest pain
- 2018 CABG (KELLY�LAD, SVG�OM 2, [facility] [place] [facility])
- 02/2025 PCI to SVG ([place], [place])
- 07/18/2025 PCI SVG to OM 2, on apixaban and clopidogrel
- Non-IN troponin leak due to demand ischemia with ongoing hypoxia; reviewed films in details and discussed with patient: this episode does not seems consistent with ACS, rather Type II NSTEMI in setting of hypoxia and tachycardia, no indication
for coronary angiography at this time.
- Severe chest pain noted on 07/05/2025urrently chest pain-free.
- EKG was normal. Serial troponin shows mild rise in troponin that has already peaked and is low now
- Patient was given sublingual nitro that causes severe headache. Needed narcotics.
- Emergent echo 09/04/2025: Systolic function is preserved with no wall motion abnormalities noted. Unchanged from previous echo.
- Patient cannot tolerate sublingual nitro. We will start patient on Isordil 10 mg 3 times daily
- Start patient on Ranexa 500 milligram twice daily
- Will drop Coreg from 37.5 to 25 mg twice a day. Will also drop lisinopril from 20 to 10 mg.
- Consider CPAP/BiPAP at home with ongoing demand ischemia.
HFpEF, recovered LVEF, chronic
- 06/2025 cath LVEDP 25mmHg at 328 pounds
- Diuresis with Bumex 2mg IV BID, now back on PO with weight returned to baseline
- Continue Jardiance
- Trend daily weight, I/O, and BMP with diuresis
- Heart failure education
- Echocardiogram
Hyponatremia
- Fluoxetine stopped, fluid restriction
- Perhaps in the setting of hypervolemia
Paroxysmal atrial fibrillation, typical atrial flutter
- s/p flutter ablation 05/2025
- In sinus rhythm currently; (an RN) noted HR 150s and irregular rhythm when patient first woke experiencing chest pain, suggestive of Afib with RVR; will benefit from discussion of ryhthm control strategy as outpatient, particularly if
recurrent episodes despite NIV and weight loss
- Oral Anticoagulation: Eliquis 5mg BID, he denies missed doses and abnormal bleeding
- [id number]: score at least 4 (Heart failure, HTN, Diabetes Mellitus, Vascular disease)
Hypercholesterolemia with hypertriglyceridemia
- Fasting lipid panel in a.m.
- Triglycerides were 1293 in June, here as well
- start icosapent ethyl 4 g daily on discharge; f/u trigs as outpatient to determine need for further medication to achieve level <500; very low fat diet, weight loss, and no EtOH also essential
- seems to be a family history of elevated trigs, may benefit from outpatient genetic testing / consultation with preventative cardiology at [place]
Hypertension, chronic and stable
Anemia, chronic, denies abnormal bleeding
Type 2 diabetes mellitus, HgbA1c 7.5% in June, per primary service
ARUN, getting evaluated for NIV inpatient
Former smoker, continued cessation recommended
Obesity, BMI 45, this affects all aspects of his care, he stopped Mounjaro due to nausea, has lost 25 pounds recently with lifestyle modification
Physical Exam
Vital Signs/Labs
Vital Signs
Temp Pulse Resp BP Pulse Ox
36.8 C 92 17 119/64 97
09/06/25 08:00 09/06/25 09:00 09/06/25 09:00 09/06/25 08:00 09/06/25 09:00
09/05/25 09/06/25 09/07/25
06:59 06:59 06:59
Actual Weight 149.7 kg 149.7 kg
09/06/25 04:37
09/06/25 04:37
APTT 32.6 Sec (23.4-35.0) 09/06/25 04:37
Magnesium 2.0 mg/dl (1.6-2.3) 09/04/25 09:19
Triglycerides 1099 mg/dl (10-149) H 09/05/25 04:29
LDL Cholesterol, Calc mg/dl 09/05/25 04:29
VLDL Cholesterol, Calc mg/dl (0-30) 09/05/25 04:29
HDL Cholesterol 20 mg/dl 09/05/25 04:29
09/04/25
00:12
Elg-F-Hfftnmeblpv Pept 281
LAB Results
09/04/25 09/04/25 09/04/25
00:12 01:54 09:19
Troponin I 0.066 H* 0.276 H* D 1.740 H* D
1209/04/25 09/05/25
12:52 22:13 04:29
Troponin I 1.830 H* 1.060 H* 0.752 H* D
Physical Exam
Constitutional: Comfortable
Cardiovascular: Rhythm & rate is regular
Respiratory: Other (resp effort normal on bipap)
Neuro/Psych: AO x 3
Data Reviewed
-
Date of Service: September 06, 2025
Medical Decision Making: Reviewed Test Results
EKG: Tracing Personally Visualized and interpreted
Echo: Tracing Personally Visualized and interpreted
X-Ray/CT/US/MRI/NUC/PET: Image Personally Visualized and interpreted
Labs: Labs Reviewed by me
--- NOTE | 2025-09-06 10:37 | CON.PUL ---
Consultation
Consultation Request
Date/Time Consultation Requested: 09/06/2025-10 AM
Date/Time Consultation Performed: 09/06/2025-10:30 AM
Requesting Provider: Hospitalist
Performing Provider: Dr. Small
Reason for Consultation: Hypoxemia and ARUN suspected
Medical History
-
Chief Complaint: Shortness of breath
History of Present Illness:
55-year-old former smoking obese male with a history of ARUN not on CPAP, hypertension, CAD with stents, CABG, ablation, admitted with chest discomfort as well as shortness of breath and hypoxemia-pulmonary consulted for shortness of breath/hypoxemia
and ARUN 09/06/2025. The patient is an extensive cardiopulmonary history. He had smoked over a pack a day until 1 year ago. He has had significant CAD with multiple stents, CABG, atrial fibrillation as well as ablations. He presented with some
chest discomfort which is improved and he denies any shortness of breath at rest though he is on supplemental oxygen. He desaturates when oxygen is taken off. He did not have pulmonary emboli. He denies any chest congestion, productive cough,
hemoptysis, pleurisy, abdominal pain, nausea, increased leg swelling or focal weakness.
Past Medical History
Past Medical History: None (CAD/multiple stents/CABG. Hypertension. Atrial fibrillation status post ablation/chronic anticoagulation. ARUN diagnosed 15 years ago-not on CPAP. Diabetes. Morbid obesity. Chronic hypoxemic respiratory failure-no
known PFTs.)
Past Surgical History: None (CABG x 3. PTCA with stents x 4-last 28 February 2025, previously [facility]. RFA ablation 05/2025)
Social History
Tobacco: Former Smoker (16-qbni-jlor quit September 2024)
Alcohol: Occasional
Drug: None
Personal:
Living: With Family
Occupational Exposures: No known asbestos exposure
Environmental Exposures: No known tuberculosis exposure
Family History
Family History: Reviewed & Not Pertinent (CAD)
Allergies / Home Medications
Allergies
Allergy/AdvReac Type Severity Reaction Status Date / Time
morphine AdvReac Unknown causes Verified 09/04/25 00:48
'PTSD'
Home Medications
�Medication �Instructions �Recorded �Confirmed �Last Taken �Type
alprazolam 2 mg tablet 2 mg PO BID PRN anxiety 06/17/25 09/04/25 06/16/25 21:00 History
amitriptyline 25 mg tablet 25 mg PO HS 06/17/25 09/04/25 06/16/25 21:00 History
apixaban 5 mg tablet (Eliquis) 5 mg PO BID 06/17/25 09/04/25 06/16/25 21:00 History
bumetanide 2 mg tablet 2 mg PO BID 06/17/25 09/04/25 06/16/25 14:00 History
clopidogrel 75 mg tablet 75 mg PO DAILY 06/17/25 09/04/25 06/17/25 05:00 History
empagliflozin 10 mg tablet 10 mg PO DAILY 06/17/25 09/04/25 06/13/25 06:00 History
(Jardiance)
ezetimibe 10 mg tablet 10 mg PO HS 06/17/25 09/04/25 06/16/25 21:00 History
fenofibrate nanocrystallized 145 145 mg PO DAILY 06/17/25 09/04/25 06/16/25 06:00 History
mg tablet
gabapentin 600 mg tablet 600 mg PO TID 06/17/25 09/04/25 06/16/25 21:00 History
insulin aspart U-100 100 unit/mL 40 unit SC TIDWMEAL 06/17/25 09/04/25 06/16/25 20:00 History
(3 mL) subcutaneous pen (Novolog
FlexPen U-100 Insulin aspart)
insulin glargine U-300 conc 300 78 unit SC BID 06/17/25 09/04/25 06/17/25 05:00 History
unit/mL (1.5 mL) subcutaneous pen 39 UNITS
(Toun[place]omyo SoloStar U-300 Insulin)
omeprazole 20 mg capsule,delayed 20 mg PO BID 06/17/25 09/04/25 06/16/25 21:00 History
release
rosuvastatin 40 mg tablet 40 mg PO HS 06/17/25 09/04/25 06/16/25 21:00 History
valproic acid 250 mg capsule 500 mg PO BID 06/17/25 09/04/25 06/16/25 21:00 History
fluoxetine 60 mg tablet 60 mg PO DAILY 06/18/25 09/04/25 06/18/25 09:00 History
insulin aspart U-100 100 unit/mL 1 sliding scale dose SC DIRECTED 07/18/25 09/04/25 Unknown History
subcutaneous cartridge
Basal Metabolic Panel #1 ea 07/20/25 09/04/25 Unknown Rx
Classic Oxygen Concentrator device #1 ea 07/20/25 09/04/25 Unknown Rx
carvedilol 25 mg tablet 37.5 mg (1.5 x 25 mg) PO BID 30 07/20/25 09/04/25 Unknown Rx
days #90 tabs
lisinopril 20 mg tablet 20 mg PO DAILY #0 tabs 07/20/25 09/04/25 06/16/25 06:00 Rx
nitroglycerin 0.4 mg sublingual 0.4 mg sublingual [id number] PRN 07/20/25 09/04/25 Unknown Rx
tablet Chest Pain #100 tabs
Review of Systems
-
Unable to Obtain full review of systems at this time due to: Other (Per HPI)
Vitals / Labs / Diagnostic Testing
Vital Signs
Temp Pulse Resp BP Pulse Ox
98.2 F 107 20 116/84 96
09/06/25 08:00 09/06/25 10:00 09/06/25 10:00 09/06/25 10:00 09/06/25 10:00
Lab Data
09/06/25 04:37
09/06/25 04:37
Laboratory Results
09/05/25 09/05/25 09/06/25
12:39 19:46 04:37
APTT 30.3 30.3 32.6
pH
pCO2
pO2
HCO3
O2 Delivery Level
09/06/25 09/06/25
05:12 11:30
APTT Cancelled
pH 7.36
pCO2 57 H
pO2 72 L
HCO3 32.2 H
O2 Delivery Level
Diagnostic Testing:
Physical Exam
-
Exam:
Well-nourished and well-developed in no apparent distress
HEENT-atraumatic, normocephalic, thick neck
Neck-supple, no JVD, no bruit
Heart-regular rate and rhythm-no murmurs, rubs or gallops
Chest with diminished breath sounds, mildly prolonged expiratory time, no wheezes or crackles
Back-no tenderness
Abdomen-soft, nontender, nondistended, no hepatosplenomegaly
Extremities-no cyanosis, clubbing, trace lower extremity edema
Integument-intact, no rashes, lesions or ecchymosis
Neurology-alert and oriented, nonfocal motor and sensory exam
Assessment
-
55-year-old former smoking obese male with a history of ARUN not on CPAP, hypertension, CAD with stents, CABG, ablation, admitted with chest discomfort as well as shortness of breath and hypoxemia-pulmonary consulted for shortness of breath/hypoxemia
and ARUN 09/06/2025.
NSTEMI-elevated troponin-peak 1.8
Status post recent PCI
PAF
Chronic hypercapnia-ABG 812--57/72/7.36
CHF-preserved EF
Hyponatremia
Hyperglycemia
Cjjbec-pzzyepzrrg-bdvnxwiavb 8.7
Elevated right hemidiaphragm
Conditions present prior to admission:
CAD/multiple stents/CABG.
Hypertension.
Hyperlipidemia including triglycerides 1099
Atrial fibrillation status post ablation/chronic anticoagulation.
ARUN diagnosed 15 years ago-not on CPAP.
Diabetes.
Morbid obesity.
Chronic hypoxemic respiratory failure-no known PFTs.
CABG x 3. PTCA with stents x 4-last 28 February 2025, previously [place]. RFA ablation 05/2025
Plan
Respiratory decompensation likely due to underlying obstructive lung disease/ARUN/CAD with chest discomfort, elevated troponin and component of mild CHF
Supplemental oxygen as needed-does not like nasal cannula
BiPAP as tolerated-tolerated 2 nights ago and 'slept much better'
Incentive spirometry
Aspiration precautions
Nebulizers as needed-currently not bronchospastic
Diuresis as tolerated
Monitor renal function, electrolytes, intake/output, lower extremity edema and weight
Replace electrolytes as needed
Trend troponin
Cardiology following
Echocardiogram reviewed
Monitor blood sugar
Insulin supplementation as needed
Follow hemoglobin
Consider studies
Transfuse as needed
DVT prophylaxis-on Eliquis
GI prophylaxis-on pantoprazole
Reviewed with Dr. Wharton as well as nursing
Reviewed with at the bedside
Outpatient cardiology follow-up
Outpatient pulmonary gcubne-jc-qbikoul cessation counseling, yearly low-dose lung cancer screening CT, PFTs, sleep study and PAP
Diagnostic data:
Chest x-ray 09/04/2025-slight prominence of vascular markings, stable elevation right hemidiaphragm
CT chest 09/06/2025-no evidence for significant pulmonary emboli, right lower lobe scarring
Echocardiogram 09/04/2025-EF 55-60%, no significant change from 07/19/2025
Data Reviewed
-
EKG: Report reviewed by me
Radiology: Image personally visualized and interpreted and Report reviewed by me
CT Scan: Image personally visualized and interpreted and Report reviewed by me
Medical Tests (Nuc Med, Echo etc): Report reviewed by me
Labs: Labs reviewed by me
Old Records: Reviewed
Total Time Spent with Patient (in minutes): 55
[2025-09-06] MEDS: ELIQUIS 5 MG PO ×2 (11:00→19:58)
[2025-09-06] MEDS: NOVOLOG FLEXPEN-HIGH RESISTANCE 4 UNITS SC (11:43)
[2025-09-06 11:57] LABS: Glucose - Point of Care 220 mg/dl (70-99)
--- NOTE | 2025-09-06 16:15 | PTCARENOTE ---
Pt downgraded to telemetry, portable heart monitor T3 applied. Pt again offered to get into chair, declines...'I like this bed.' Pt encouraged to sit on side of bed to freshen up, at bedside offered to assist patient. Supplies for soap and
water bath provided. Pt again offered to use nasal cannula instead of ventimask, pt declines, states the nasal cannula 'dries him out.' Home o2 assessment completed by RT Winters. Safe environment ongoing.
--- NOTE | 2025-09-06 16:57 | CM ---
Addendum entered by Wu Deshpande 09/06/25 18:20:
Patient refused Home VN
Original Note:
F/U: Patient needs BIPAP machine. CM met with patient and his , patient has Home O2 that he purchased, but does not have a small portable for appointments outside the home. Therefore, had Dr. Lyles order Home O2 Test, patient qualified.
Patient chose [facility], faxed Oxygen script plus test- patient is set up with Oxygen for home & specifically a portable for appointments that Shasta from [facility] (she is aware that he is being down graded today from the ICU) will have this delivered
tomorrow (vs. large tanks).
Re: BIPAP, Hospitalist left early so this is also arranged with [facility]. [employer] tomorrow (09/07) will take form from desk for BIPAP to have Hospitalist sign who is expecting it then get francis marcus from his note, fax both to Shasta at [facility].
Patient is aware of his set up. PLAN: Home w/ O2 and BIPAP
[2025-09-06 17:06] LABS: Glucose - Point of Care 104 mg/dl (70-99)
[2025-09-06] MEDS: NOVOLOG FLEXPEN-HIGH RESISTANCE 1 UNITS SC (17:29)
--- NOTE | 2025-09-06 17:55 | PTCARENOTE ---
Spot checked pt on room air after he ate dinner, lying on the bed, pt was talking with and RN, sa02 was 91%, no subjective dyspnea observed. Pt again offered to try wearing a low flow nasal cannula, pt again refused, stating he wants to
continue to wear the Ventimask, 'this isn't my first rodeo'....education provided, pt continues to dismiss information/education, 'did you know cancer can't exist in a vacuum?' at bedside also trying to educate patient. Safe environment ongoing.
--- NOTE | 2025-09-06 18:54 | PTCARENOTE ---
Pt c/o chest pain, 6/10 in the center of chest 'shoots out to the left' , states the pain is the same as before. 20:00 dose of Ranexa given at this time.
[2025-09-06] MEDS: ZETIA 10 MG PO (19:57)
[2025-09-06] MEDS: CRESTOR 40 MG PO (19:57)
[2025-09-06] MEDS: ELAVIL 25 MG PO (19:58)
--- NOTE | 2025-09-06 20:00 | PTCARENOTE ---
Assumed care of patient. At this time patient is stating that he has no chest pain, dizziness, or shortness of breath. He is alert and oriented x3, afebrile, moves independently. He is in NSR with no edema on exam, pulses are palpable. He is on his
home oxygen requirement sat 95%. Abdomen is obese, soft, non-tender. Bowel sounds positive. Patient is continent to urinal. Skin is intact. IV sites are c/d/i.
[2025-09-06 20:27] LABS: Glucose - Point of Care 213 mg/dl (70-99)
[2025-09-06 21:13] LABS: Glucose - Point of Care 217 mg/dl (70-99)
[2025-09-07] VITALS: BP 88/68
--- NOTE | 2025-09-07 01:18 | PTCARENOTE ---
Patient resting comfortably in bed at this time. No changes in assessment.
[2025-09-07 03:33] VITALS: PULSE 2; PULSE 92
[2025-09-07 04:13] VITALS: BP 98/55
--- NOTE | 2025-09-07 04:23 | PTCARENOTE ---
Labs collected and sent. Patient has no needs at this time. No changes in assessment.
[2025-09-07 04:34] LABS: Hematocrit 32.4 % (39.0-52.0); Hemoglobin 9.0 g/dL (13.0-18.0); Mean Corp Hgb Conc. 27.8 g/dL (33.0-37.0); Mean Corpuscular Volume 80.2 fL (80.0-94.0); Platelet Count 277 10^3/uL (130-400); Red Cell Dist. Width 17.6 % (11.5-14.5)
[2025-09-07 04:55] LABS: Iron 60 ug/dl (49-181)
[2025-09-07 04:56] LABS: Blood Urea Nitrogen 31 mg/dl (9-20); Calcium 9.0 mg/dl (8.4-10.2); Chloride 97 mmol/L (98-107); Estimated Creatinine Clearance 94 ml/min; Glucose 130 mg/dl (70-99); Potassium 4.7 mmol/L (3.5-5.1); Sodium 138 mmol/L (135-145); eGFR > 60.00
[2025-09-07 05:05] LABS: Total Iron Binding Capacity 494 ug/dl (261-462)
[2025-09-07 05:32] LABS: Ferritin 11.6 ng/ml (17.9-464.0)
[2025-09-07 05:40] LABS: Carbon Dioxide 37 mmol/L (22-30)
[2025-09-07 06:00] VITALS: BMI 44.9
[2025-09-07 06:03] LABS: Folate 10.9 ng/ml (2.76-20); Vitamin B12 467 pg/ml (239-931)
--- NOTE | 2025-09-07 07:29 | PTCARENOTE ---
Pt rec'd from night RN in walking rounds, pt ambulating in room ad leigha, o2 off, placing self on venimask intermittently. Will discuss plan of care with attending MD upon rounds. Pt with no complaints of chest pain, slept well overnight. Safe
environment maintained.
[2025-09-07 07:42] LABS: Glucose - Point of Care 155 mg/dl (70-99)
--- NOTE | 2025-09-07 08:42 | W.PN.CD ---
Today's Communication / Plan
-
icosapent ethyl 4 g daily on discharge
Ranexa cont
coreg now 25 mg
lisinopril 10 mg
On oxygen
chronic anemia getting heme test for stool
He is stable from CV standpoint.
We will signoff pls call with questions.
Impression / Plan
-
I/P: 55M with significant CAD CAD status [facility] [place] [facility] NSTEMI status post PCI to SVG (03/24), NSTEMI with PCI to OM 2 (06/2025), mixed cardiomyopathy with recovered LVEF, paroxysmal atrial
fibrillation/typical atrial flutter status post ablation 05/2025), hypertension, hypercholesterolemia, hypertriglyceridemia, insulin-dependent type 2 diabetes mellitus, untreated ARUN, and morbid obesity presented to the emergency department with a
chief complaint of chest pain.
Primary costume design teacher: Dr. Powers
Acute hypoxic respiratory failure
- Requiring Ventimask at 10L to maintain SpO2 > 92%
- No missed doses of Eliquis, doubt PE
- Improved significantly with BiPAP.
- Chest x-ray shows atelectasis. CT chest rule out PE and dissection. Right lung basal scarring noted.
- Hypoxia appears to to be related to untreated obstructive sleep apnea
- Treated adequately with BiPAP.
- Continue PO diuresis to maintain current weight
- setup with home non invasive ventilation
CAD/chest pain
- 2018 [facility] [place] [facility]
- 02/2025 PCI to SVG (Delia Fernandez, SAMANTHA)
- 07/18/2025 PCI SVG to OM 2, on apixaban and clopidogrel
- Non-IN troponin leak due to demand ischemia with ongoing hypoxia; reviewed films in details and discussed with patient: this episode does not seems consistent with ACS, rather Type II NSTEMI in setting of hypoxia and tachycardia, no indication
for coronary angiography at this time.
- Severe chest pain noted on 07/05/2025urrently chest pain-free.
- EKG was normal. Serial troponin shows mild rise in troponin that has already peaked and is low now
- Patient was given sublingual nitro that causes severe headache. Needed narcotics.
- Emergent echo 09/04/2025: Systolic function is preserved with no wall motion abnormalities noted. Unchanged from previous echo.
- Patient cannot tolerate sublingual nitro. Now off isordil--> HAs cont on Ranexa 500 milligram twice daily
- Will drop Coreg from 37.5 to 25 mg twice a day. Will also drop lisinopril from 20 to 10 mg.
- Consider CPAP/BiPAP at home with ongoing demand ischemia.
HFpEF, recovered LVEF, chronic
- 06/2025 cath LVEDP 25mmHg at 328 pounds
- Diuresis with Bumex 2mg IV BID, now back on PO with weight returned to baseline
- Continue Jardiance
- Trend daily weight, I/O, and BMP with diuresis
- Heart failure education
- Echocardiogram
Hyponatremia
- Fluoxetine stopped, fluid restriction
- Perhaps in the setting of hypervolemia
Paroxysmal atrial fibrillation, typical atrial flutter
- s/p flutter ablation 05/2025
- In sinus rhythm currently; (an RN) noted HR 150s and irregular rhythm when patient first woke experiencing chest pain, suggestive of Afib with RVR; will benefit from discussion of ryhthm control strategy as outpatient, particularly if
recurrent episodes despite NIV and weight loss
- Oral Anticoagulation: Eliquis 5mg BID, he denies missed doses and abnormal bleeding
- [id number]: score at least 4 (Heart failure, HTN, Diabetes Mellitus, Vascular disease)
Hypercholesterolemia with hypertriglyceridemia
- Fasting lipid panel in a.m.
- Triglycerides were 1293 in June, 1000 here as well
- start icosapent ethyl 4 g daily on discharge; f/u trigs as outpatient to determine need for further medication to achieve level <500; very low fat diet, weight loss, and no EtOH also essential
- seems to be a family history of elevated trigs, may benefit from outpatient genetic testing / consultation with preventative cardiology at [place]
Hypertension, chronic and stable
Anemia, chronic, denies abnormal bleeding
Type 2 diabetes mellitus, HgbA1c 7.5% in June, per primary service
ARUN, getting evaluated for NIV inpatient
Former smoker, continued cessation recommended
Obesity, BMI 45, this affects all aspects of his care, he stopped Mounjaro due to nausea, has lost 25 pounds recently with lifestyle modification
Physical Exam
Vital Signs/Labs
Vital Signs
Temp Pulse Resp BP Pulse Ox
97.9 F 94 24 98/55 98
09/07/25 07:59 09/07/25 07:03 09/06/25 15:15 09/07/25 04:13 09/07/25 04:23
09/06/25 09/07/25 09/08/25
06:59 06:59 06:59
Actual Weight 330 lb 0.512 oz 330 lb 14.621 oz
09/07/25 04:18
09/07/25 04:18
APTT Cancelled 09/06/25 11:30
Magnesium 2.0 mg/dl (1.6-2.3) 09/04/25 09:19
Triglycerides 1099 mg/dl (10-149) H 09/05/25 04:29
LDL Cholesterol, Calc mg/dl 09/05/25 04:29
VLDL Cholesterol, Calc mg/dl (0-30) 09/05/25 04:29
HDL Cholesterol 20 mg/dl 09/05/25 04:29
09/04/25
00:12
Zua-L-Pklnxwtpira Pept 281
LAB Results
09/04/25 09/04/25 09/04/25
09:19 12:52 22:13
Troponin I 1.740 H* D 1.830 H* 1.060 H*
09/05/25
04:29
Troponin I 0.752 H* D
Physical Exam
Constitutional: No acute distress and Comfortable
EENT: Anicteric
Cardiovascular: Rhythm & rate is regular (distant heart soudns)
Respiratory: Respiratory effort normal
GI: Soft
Neuro/Psych: AO x 3
Data Reviewed
-
Date of Service: September 07, 2025
EKG: Tracing Personally Visualized and interpreted (sr)
Echo: Report Reviewed by me
Labs: Labs Reviewed by me
[2025-09-07 08:50] VITALS: BP 126/76
[2025-09-07] MEDS: NOVOLOG FLEXPEN-HIGH RESISTANCE 2 UNITS SC (08:54)
[2025-09-07] MEDS: NOVOLOG FLEXPEN 30 UNITS SC ×2 (08:59→12:11)
[2025-09-07] MEDS: LANTUS 0.7 UNITS SC (08:59)
[2025-09-07] MEDS: NEURONTIN 600 MG PO (09:00)
[2025-09-07] MEDS: COREG 25 MG PO (09:00)
[2025-09-07] MEDS: ZESTRIL 10 MG PO (09:01)
[2025-09-07] MEDS: FARXIGA 10 MG PO (09:02)
[2025-09-07] MEDS: RANEXA EXTENDED RELEASE 500 MG PO (09:02)
[2025-09-07] MEDS: BUMEX 2 MG PO (09:02)
[2025-09-07] MEDS: PROTONIX 40 MG PO (09:02)
[2025-09-07] MEDS: TRICOR 145 MG PO (09:02)
[2025-09-07] MEDS: ELIQUIS 5 MG PO (09:02)
[2025-09-07] MEDS: PLAVIX 75 MG PO (09:02)
[2025-09-07] MEDS: DEPAKENE 500 MG PO (09:03)
--- NOTE | 2025-09-07 10:26 | PTCARENOTE ---
Pt ok for discharge, heme tested stool per attending, negative result communicated to MD. Plan discussed with case mgmt Rola as well. DME being set up. Awaiting dc orders at this time.
--- NOTE | 2025-09-07 11:01 | W.PN.PUL.V3 ---
Today's Communication / Plan
-
Wean oxygen
Increase activity
Heme test stools
PAP at night
Outpatient pulmonary follow-up
Assessment
-
55-year-old former smoking obese male with a history of ARUN not on CPAP, hypertension, CAD with stents, CABG, ablation, admitted with chest discomfort as well as shortness of breath and hypoxemia-pulmonary consulted for shortness of breath/hypoxemia
and ARUN 09/06/2025.
NSTEMI-elevated troponin-peak 1.8
Status post recent PCI
PAF
Chronic hypercapnia-ABG 812/05/24--57/72/7.36
CHF-preserved EF
Hyponatremia
Hyperglycemia
Esrvuc-alsiubheiq-ciknrfkdtb 8.7
Elevated right hemidiaphragm
Conditions present prior to admission:
CAD/multiple stents/CABG.
Hypertension.
Hyperlipidemia including triglycerides 1099
Atrial fibrillation status post ablation/chronic anticoagulation.
ARUN diagnosed 15 years ago-not on CPAP.
Diabetes.
Morbid obesity.
Chronic hypoxemic respiratory failure-no known PFTs.
CABG x 3. PTCA with stents x 4-last 28 February 2025, previously [facility]. RFA ablation 05/2025
Plan
Respiratory decompensation likely due to underlying obstructive lung disease/ARUN/CAD with chest discomfort, elevated troponin and component of mild CHF
Supplemental oxygen as needed-does not like nasal cannula-currently on 35% Ventimask-99% saturation
BiPAP as tolerated-tolerated 2 nights ago and 'slept much better'
Incentive spirometry
Aspiration precautions
Nebulizers as needed-currently not bronchospastic
Diuresis as tolerated
Monitor renal function, electrolytes, intake/output, lower extremity edema and weight
Replace electrolytes as needed
Trend troponin
Cardiology following-correspondence reviewed
Echocardiogram reviewed-summarized below
Monitor blood sugar
Insulin supplementation as needed
Follow hemoglobin-currently 9.0
Heme test stools
Iron deficient
Transfuse as needed
DVT prophylaxis-on Eliquis
GI prophylaxis-on pantoprazole
Reviewed with Dr. Wharton as well as nursing
Reviewed with at the bedside
Outpatient cardiology follow-up
Outpatient pulmonary mhscny-ro-sftrsgy cessation counseling, yearly low-dose lung cancer screening CT, PFTs, sleep study and PAP
Diagnostic data:
Chest x-ray 09/04/2025-slight prominence of vascular markings, stable elevation right hemidiaphragm
CT chest 09/06/2025-no evidence for significant pulmonary emboli, right lower lobe scarring
Echocardiogram 09/04/2025-EF 55-60%, no significant change from 07/19/2025
Subjective Data
-
Date of Service:
Date of Service: September 07, 2025
Chief Complaint: Pulmonary Follow Up and Dyspnea Follow Up
Subjective:
No complaints of worsening shortness of breath, no chest pain, abdominal pain
Review of Systems
HEENT: Other (Per HPI)
Objective Data
Data Reviewed
Vital Signs / I&O:
Vital Signs
Temp Pulse Resp BP Pulse Ox
97.9 F 96 24 126/76 99
09/07/25 07:59 09/07/25 10:00 09/06/25 15:15 09/07/25 09:00 09/07/25 10:41
Intake and Output
09/06/25 09/07/25 09/08/25
06:59 06:59 06:59
Intake Total 1326 / 1326 720 / 720
Output Total 1600 / 1600 3050 / 3050
Balance -274 / -274 -2330 / -2330
SaO2: 99
Nasal Cannula flow liters per minute: 7
Physical Exam
General: Respiratory Distress (n) and Comfortable
HEENT: Normocephalic, Anicteric, Moist Mucous Membranes and Other (Thick neck)
Cardiovascular: Regular Rhythm
Respiratory: Wheeze (n), Crackles (n), Rhonchi (n), Non-Labored Respirations, Accessory Resp Muscle Use (n) and Stridor
GI: Soft, Non Distended and Non Tender
Neurology: Awake, Alert and No Motor Deficits
Skin: Warm, Good Color, Cyanosis (n), Jaundice (n) and Rash (n)
Labs/Micro/Reports
Lab Data
09/07/25 04:18
09/07/25 04:18
--- NOTE | 2025-09-07 11:23 | PTCARENOTE ---
Rep arrived in room to deliver 02 concentrator to patient, attending and CM made aware.
--- NOTE | 2025-09-07 11:55 | W.PN.UPDATE ---
Update Note
Progress Note Update
Patient is in need of oxygen at 6 liters/minute via nasal cannula continuously due to pulse oximetry of 82% on room air at rest. Oxygenation was 94% on 6l with exertion.Oxygen will help to improve hypoxemia. Patient is mobile within the home. [place]
therapy has been tried and is ineffective in treating hypoxemia related symptoms. Oxygen is needed to improve symptoms.
[2025-09-07] MEDS: NOVOLOG FLEXPEN-HIGH RESISTANCE 1 UNITS SC (12:10)
--- NOTE | 2025-09-07 12:14 | W.PN.UPDATE ---
Update Note
Progress Note Update
BiPAP indication
Pt with morbid obesity, obstructive sleep apnea not on CPAP
History of smoking with concerned about COPD. Has chronic hypoxic respiratory failure. Unknown PFTs.
His ABG suggest compensated respiratory acidosis with pCO2 of 57.
He was trialed on BiPAP in the hospital with improved breathing and improved fatigue in the daytime.
Would benefit Home O2 along with BiPAP.
He will follow with pulmonary as an outpatient and get official sleep study and PFTs.
[2025-09-07 12:21] LABS: Glucose - Point of Care 111 mg/dl (70-99)
[2025-09-07 12:31] VITALS: BP 135/76
[2025-09-07 12:33] VITALS: BP 135/75
--- NOTE | 2025-09-07 12:42 | PTCARENOTE ---
Discharge orders rec'd. Vital signs checked, pt eating lunch. Awaiting final confirmation of bipap delivery before sending pt home. at bedside.
--- NOTE | 2025-09-07 13:36 | CM ---
Addendum entered by INO Salcido 09/07/25 17:07:
Last documentation obtained for [facility] to get insurer to cover BIPap. note from Dr. Small faxed to Shasta at [facility] .
Addendum entered by INO Salcido 09/07/25 16:22:
Awaiting one more note to be put in that is needed for insurer to pay for the BIPAP at home per Shasta at [facility]. sent request in TT to Dr. Wharton and to Dr. Small. Patient was discharged home today.
Addendum entered by INO Salcido 09/07/25 14:04:
faxed note from chart to justify the bipap. Plan home today and BIPAP delivery tomorrow.
Original Note:
faxed Dr. Wharton note for oxygen and for bipap to [facility]. [facility], liaison, Shasta said she will probably not be able to get BIPAP out to house today. Oxygen was delivered for patient at home.
--- NOTE | 2025-09-07 13:43 | W.PN.UPDATE ---
Update Note
Progress Note Update
Patient requires Noninvasive volume ventilation with a target tidal volume due to Acute on Chronic Respiratory Failure caused by Obesity Hypoventilation Syndrome. Patient requires Auto EPAP to prevent their airway from collapsing and battery backup
in case of power outages which exceeds the capability of a RAD. Patient is currently on NIV and will need to continue NIV therapy at home. Without NIV therapy, patient is at risk of elevated PaCO2 levels post discharge
--- NOTE | 2025-09-07 14:58 | W.PN.UPDATE ---
Update Note
Progress Note Update
Patient requires Non-Invasive Volume Ventilation due to OHS, BiLevel has been considered and ruled out, including BiLevelVAPS. Patient requires pressures greater than [id number] which is not supported by a BiLevel VAPS due to body habitus. A
traditional ventilator will exceed pressures greater than 22oma8w with a max pressure of 50 cmh2o.
--- NOTE | 2025-09-07 16:50 | W.PN.UPDATE ---
Update Note
Progress Note Update
Patient requires noninvasive volume ventilation due to obesity hypoventilation syndrome/obstructive sleep apnea. Bilevel has been considered and ruled out. This includes bilevelVAPS. The patient requires pressures greater than 30 cm which is not
supported by a bilevelVAPS due to body habitus. A traditional ventilator with CPAP pressures greater than 30 cm with a max pressure of 50 cm.
--- NOTE | 2025-09-07 17:40 | W.DCSUMMARY ---
Discharge Summary
Discharge Data
Date of Admission: 09/04/25
Date of Discharge: 09/07/25
-
Pending Results: No
Hospital Course
Primary diagnosis:
[id number] PA
CAD with recent PCI
Severe hypertriglyceridemia
Acute on chronic hypoxic respiratory failure
Obstructive sleep apnea not on CPAP
Chronic hypercapnia
Anemia with iron deficiency and heme occult negative
Secondary diagnosis:
Heart failure with preserved EF
Paroxysmal fibrillation on anticoagulation
Diabetes mellitus type 2 on insulin
Morbid obesity
Hospital course:
55-year-old with past medical history of CAD, status post CABG, recent NSTEMI status post successful PCI to mid OM 2 through SVG, on Plavix and apixaban for proximal atrial fibrillation, insulin-dependent diabetes, untreated ARUN, hypertension, CHF
with mildly reduced EF presents to the emergency department with chest pain associated with palpitations.
He was ruled in for an PA with a peak troponin of 1.8
2-1/2 a weeks ago he had a PCI to the mid OM2 to SVG for non-ST elation PA. He was initially treated with IV heparin and then started on antianginal Ranexa. He was continued on Plavix. Was continued on Coreg. He had repeat echo which showed no
changes compared to recent echo. EF was normal. Cardiology had no plans for interventions other than medical therapy. He has history of CAD status post prior CABG.
Has severe hypertriglyceridemia with triglycerides of 1099. Apparently has family history significant for that. He is already on fibrate, Zetia, statins. Cardiology initiated on icosapent Ethyl. He would need to be referred to lipid specialist
as an outpatient. No prior history of pancreatitis.
Acute on chronic Evoxac respiratory failure. He has a history of obstructive sleep apnea but not on CPAP. He has extensive smoking history. Unknown baseline PFTs. Initial chest x-ray showed pulmonary vascular congestion and was treated with
diuresis. Weight improved from 335 pounds to 330 pounds which was his recent baseline weight. He was maintained on Bumex on discharge.
He was initially treated with BiPAP. He was noted to have compensated respiratory acidosis with pCO2 of 57 once he was stable. There was concern about combination of obstructive sleep apnea and underlying lung disease. He was seen by pulmonary.
Additional outpatient follow-up with sleep study and pulmonary function test. In meantime BiPAP was set up for him at home. He has a history of chronic hypoxic respiratory failure. He was on supplemental oxygen. He was continued on home O2 and
was requiring 6 L. He is not smoking anymore.
Today he feels stable without any chest pain or shortness of breath. No acute respiratory distress evident. Was afebrile. Pulse was 95 blood pressure 135/74 saturations were 89% on 6 L. Chest was clear without wheeze.
He is tolerating diet. Abdomen is obese but no tenderness. He was anemic and seems chronic from recent admission. He was iron deficient by his iron studies but he was heme-negative. He was started on iron supplementation. In view of iron
deficiency he was advised to follow with GI. He is hemoglobin was stable while he was on anticoagulation. He was resumed on his home Eliquis prior to discharge.
He was advised to get a follow-up CBC in a week.
Consultants on board:
Cardiology-Dejan Flores
Pulmonary-Dr. Staci Dowd
Portions of this chart may have been created with voice recognition software. Occasional wrong word or 'sound alike' substitutions may have occurred due to the inherent limitations of voice recognition software.
Discharge Plan
-
Patient Disposition: Home with Home Care
Discharge Diagnosis/Procedures: NSTEMI;CAD s/p CAGB and recent PCI ; ARUN ; Iron def with heme neg stools; parox afib
Diet: Low Cholesterol and 2 Gram Sodium
Activity: As tolerated
Driving Restrictions: Not until seen by your Dr
Bathing Restrictions: None
Blood Work: CBC in one week -arrange through your PCP
Other Services: VN
Referrals:
Latrell Cowan MD [Active, Gastroenterology] - in one month
Referral Note: For iron deficiency anemia and GI endoscopic evaluation
Jeremiah Powers MD [Active, Cardiology] - in one to two weeks
Nile Small MD [Active, Pulmonary Medicine] - in one to two weeks
Referral Note: PFT and sleep study
Natasha Jensen CRNP [Family Provider] - in less than 1 week
Additional Discharge Medication Instructions: Ranexa is new medication for chest pains; Icospent ethyl is new medication for elevated triglycerides. Dose of Coreg/lisinopril decreased
Prescriptions:
New
carvedilol 25 mg Tablet
25 mg PO BID Qty: 60 0RF
lisinopril 10 mg Tablet
10 mg PO DAILY Qty: 30 0RF
ranolazine 500 mg Tablet Extended Release 12 Hr
500 mg PO BID Qty: 30 0RF
ferrous sulfate 325 mg (65 mg iron) tablet
325 mg PO DAILY Qty: 30 0RF
icosapent ethyl 1 gram capsule
4 g PO DAILY Qty: 120 0RF
Continued
gabapentin 600 mg Tablet
600 mg PO TID
bumetanide 2 mg Tablet
2 mg PO BID
clopidogrel 75 mg Tablet
75 mg PO DAILY
valproic acid 250 mg Capsule
500 mg PO BID
amitriptyline 25 mg Tablet
25 mg PO HS
omeprazole 20 mg Capsule,Delayed Release(Dr/Ec)
20 mg PO BID
alprazolam 2 mg Tablet
2 mg PO BID PRN (Reason: anxiety)
ezetimibe 10 mg Tablet
10 mg PO HS
rosuvastatin 40 mg Tablet
40 mg PO HS
fenofibrate nanocrystallized 145 mg Tablet
145 mg PO DAILY
Eliquis 5 mg Tablet
5 mg PO BID
Jardiance 10 mg Tablet
10 mg PO DAILY
fluoxetine 60 mg Tablet
60 mg PO DAILY
insulin aspart U-100 100 unit/mL Cartridge
1 sliding scale dose SC DIRECTED
Rx Instructions:
high resistence sliding scale
(DME) Classic Oxygen Concentrator device
See Rx Instructions .Route .MEDSUPPLY Qty: 1 0RF
Rx Instructions:
Diagnosis : COPD ICD 10: J44.9
(DME) Basal Metabolic Panel
See Rx Instructions .Route .MEDSUPPLY Qty: 1 0RF
Rx Instructions:
please fax result to Dr. Kevin Woo DO,
Changed
insulin aspart U-100 [Novolog FlexPen U-100 Insulin] 100 unit/mL (3 mL) Insulin Pen
30 unit SC TIDWMEAL Qty: 0 0RF
insulin glargine U-300 conc [Toujeo SoloStar U-300 Insulin] 300 unit/mL (1.5 mL) Insulin Pen
70 unit SC BID Qty: 0 0RF
Discontinued
nitroglycerin 0.4 mg Tablet, Sublingual
0.4 mg sublingual [id number] PRN (Reason: Chest Pain) Qty: 100 0RF
lisinopril 20 mg Tablet
20 mg PO DAILY Qty: 0 0RF
Rx Instructions:
Hold for SBP<90
carvedilol 25 mg Tablet
37.5 mg PO BID 30 Days Qty: 90 0RF
Rx Instructions:
Hold for SBP<90 or HR<60
Discharge Orders:
Discharge Patient (As Directed); Ordered 09/07/25
Ordered By: Cj Wharton
Discharge Date and Time
Discharge Date/Time: 09/07/25 15:50
Print Language: GRENADIAN
== END 2025-09-07 15:50 | disposition home health service (06) | DRG 280 ==
LOC: ICU 03:42
PROVIDERS: Internal Medicine; Nurse Practitioner Family; ADMITTING PHYSICIAN Internal Medicine; ATTENDING PHYSICIAN Internal Medicine; CONSULT PHYSICIAN Internal Medicine Cardiovascular Disease; CONSULT PHYSICIAN Internal Medicine Critical Care Medicine; EMERGENCY PHYSICIAN Emergency Medicine; FAMILY PHYSICIAN Nurse Practitioner Family
PROC: 5A09357 Assistance with Respiratory Ventilation, Less than 24 Consecutive Hours, Continuous Positive Airway Pressure (ICD-10-PCS; 2025-09-04)
DX: I21.4 Non-ST elevation (NSTEMI) myocardial infarction (principal); J96.21 Acute and chronic respiratory failure with hypoxia; E87.1 Hypo-osmolality and hyponatremia; I48.3 Typical atrial flutter; Z68.42 Body mass index [BMI] 45.0-49.9, adult; E66.2 Morbid (severe) obesity with alveolar hypoventilation; I42.8 Other cardiomyopathies; E87.29 Other acidosis; I50.32 Chronic diastolic (congestive) heart failure; I11.0 Hypertensive heart disease with heart failure; E11.65 Type 2 diabetes mellitus with hyperglycemia; I48.0 Paroxysmal atrial fibrillation; I25.10 Atherosclerotic heart disease of native coronary artery without angina pectoris; E78.00 Pure hypercholesterolemia, unspecified; E78.1 Pure hyperglyceridemia; D50.9 Iron deficiency anemia, unspecified; J44.9 Chronic obstructive pulmonary disease, unspecified; I95.9 Hypotension, unspecified; I25.2 Old myocardial infarction; Z79.01 Long term (current) use of anticoagulants; Z95.5 Presence of coronary angioplasty implant and graft; Z79.4 Long term (current) use of insulin; Z95.1 Presence of aortocoronary bypass graft; Z87.891 Personal history of nicotine dependence; Z82.49 Family history of ischemic heart disease and other diseases of the circulatory system; Z88.5 Allergy status to narcotic agent; Z79.02 Long term (current) use of antithrombotics/antiplatelets; Z79.84 Long term (current) use of oral hypoglycemic drugs; Z79.899 Other long term (current) drug therapy
CPT/HCPCS: 36600; 71045; 71275; 80048; 80053; 80061; 82607; 82728; 82746; 82805; 82962; 83036; 83540; 83550; 83721; 83735; 83880; 83935; 84484; 85025; 85027; 85730; 93005; 93306; 94660; 99291; Q9950; Q9967